=== PATIENT | female | born 1940 | race Caucasian/White ===

== ENCOUNTER → 2019-08-08 13:21 | Outpatient (CLI) | payer MEDICARE, OTHER, SELFPAY ==
--- NOTE | 2019-08-08 13:27 | DI.RAD.S_ITS ---
PROCEDURE: XR THORACIC SPINE 3V INDICATIONS: thoracic radicular pain TECHNIQUE: 3 views of the thoracic spine were acquired. COMPARISON: [facility], MR, MR THORACIC SPINE WO CON, 08/08/2019, 13:45. FINDINGS: Bones: No fractures or dislocations. There is a minimal rightward curvature of the lower thoracic spine and mild leftward curvature of the lumbar spine. There is multilevel degenerative disc disease throughout the thoracic spine including [id number] degeneration in the lower thoracic spine. No suspicious bony lesions. 12 pairs of ribs are noted, and appear intact where visualized. Soft tissues: No paravertebral stripe thickening. IMPRESSION: 1. Multilevel degenerative disease including [id number] degeneration in the lower thoracic spine. Recommend correlation with concurrent MRI. Dictated by: Osman Oliva M.D. on 08/08/2019 at 15:38 Approved by: Osman Oliva M.D. on 08/08/2019 at 15:40
--- NOTE | 2019-08-08 13:27 | DI.MRI.S_ITS ---
PROCEDURE: MR THORACIC SPINE WO CON INDICATIONS: thoracic radicular pain TECHNIQUE: Noncontrast sagittal T1 spine echo and T2 fast spin echo, sagittal STIR, axial T1 and T2 fast spin echo through the thoracic spine. COMPARISON: None. FINDINGS: Image quality: Excellent. Alignment and Curvature: There is normal bony alignment. Bone Marrow: Marrow is of normal overall signal. No acute vertebral body compression fractures. Spinal Cord: Visualized spinal cord along the thoracic spine is normal in size and signal. At the low cervical spine in the C5-6, C6-7 region there is moderately severe spinal stenosis partially visualized at the upper imaging margin. Paraspinous Soft Tissues: No paravertebral masses. Miscellaneous: On axial images, central canal and foramina appear widely patent at all scanned levels. IMPRESSION: No compression fracture found. Low cervical degenerative disc disease combines with facet osteoarthritis in the C5-6 and C6-7 regions to produce relatively severe spinal stenosis. Depending on clinical status followup by dedicated cervical MR scanning may be warranted. Along the thoracic spine mild degenerative disc disease without significant spinal or foraminal stenosis present. No disc herniation is found. No compression fracture is seen. Dictated by: Baljinder Gtz M.D. on 08/10/2019 at 14:41 Approved by: Baljinder Gtz M.D. on 08/10/2019 at 14:44
== END ==
PROVIDERS: Family Provider Family Medicine; PCP Family Medicine; Visit Provider Registered Nurse
DX: M51.14 Intervertebral disc disorders with radiculopathy, thoracic region (principal); M50.122 Cervical disc disorder at C5-C6 level with radiculopathy; M47.22 Other spondylosis with radiculopathy, cervical region; M48.02 Spinal stenosis, cervical region
CPT/HCPCS: 72072; 72146

== ENCOUNTER 2019-10-05 14:40 | Outpatient (CLI) | payer MEDICARE, BC, SELFPAY ==
[2019-10-05] VITALS (10 sets, daily range): BP systolic 107–153; BP diastolic 52–104; PULSE 16–72; RESP 16–18; TEMP 36.3; O2SAT 97–100
--- NOTE | 2019-10-05 14:46 | DI.RAD.S_ITS ---
PROCEDURE: PAIN L/SI FACET INJ/BLK 1STL INDICATIONS: SPONDYLOSIS FINDINGS: Fluoroscopic spot filming was performed to verify placement of spinal needles at the L3-4, L4-L5 level(s), as labeled on the films. Appropriate location(s) of the needle tip(s) was confirmed by injection of iodinated contrast. Dictated by: Devon Arana M.D. on 10/05/2019 at 17:34 Approved by: Devon Arana M.D. on 10/05/2019 at 17:35
[2019-10-05] MEDS: MIDAZOLAM 5 MG/5 ML VIAL IV (15:22)
[2019-10-05] MEDS: BUPIVACAINE 0.5% (PF) VIAL 2 ML INJ (15:26)
[2019-10-05] MEDS: IOPAMIDOL 15 ML VIAL 3 ML INJ (15:26)
[2019-10-05] MEDS: BETAMETHASONE 30 MG/5 ML MDV 12 MG INJ (15:26)
--- NOTE | 2019-10-05 15:28 | PC.NURSE ---
ASSISTING PT OFF TABLE AND TRANSPORTING TO POST PROC AREA IN STABLE CONDITION. PASSING RN CARE OF PT OFF TO MIRIAM Lai RN.
--- NOTE | 2019-10-05 15:42 | P.PCN_ITS ---
Procedures Date/Time Date of procedure: 10/05/19 Time of procedure: 15:42 General Procedure description: PREOP DIAGNOSIS 1. FACET ARTHROPATHY, 2. AXIAL LBP, 3. MULTILEVEL DDD, POST OP DIAGNOSIS 1. FACET ARTHROPATHY, 2. AXIAL LBP, 3. MULTILEVEL DDD, PROCEDURES 1. FLUORSCOPICALLY GUIDED CONTRAST CONTROLLED FACET JOINT INJECTIONS RIGHT L3/4, L4/5 SURGEON: Gerardo Johnson, DO INDICATIONS Kati is referred by for treatment of Axial LBP FINDINGS Multilevel Facet Arthropathy with Clinically significant axial LBP DESCRIPTION OF PROCEDURE Fluoroscopically guided, contrast-controlled right L3/4, L4/5 facet joint in jections. Following review of allergy and review of potential side effects and complications, including, but not necessarily limited to, infection, allergic reaction, local tissue breakdown, stroke, temporary or permanent nerve injury, paralysis, and possible , the patient indicated that the patient understood and agreed to proceed. An informed consent document was signed by the patient, witnessed by a nurse, and placed in the patient's chart. Additionally, other treatment options including medications, modalities, and physical therapy were reviewed with the patient. After review of previous anaesthesic history and IV conscious sedation the patient was deemed safe to proceed with todays procedure with IV conscious sedation as ASA class II designation. Safety time-out was performed to confirm patient ID, procedure to be performed and site of procedure. IV sedation was accomplished with 2mg of Versed administered by the RN after DO order, titrated to patient comfort during the course of the procedure while the patient remained responsive to all verbal commands. In the prone position, following sterile prep and drape of the lumbar region, the posterior aspect of the right L3/4, L4/5 facet joints were identified fluoroscopically. The skin was anesthetized via a 25-gauge 1.5-inch needle with 1% lidocaine solution into the corresponding facet joints. At this point, a 25- gauge 3.5-inch spinal needle was atraumatically introduced and advanced under fluoroscopic guidance into the corresponding facet joints. Following negative aspiration, injections of approximately 0.2-cc of Isovue 200 confirmed interarticular placement without vascular uptake. Radiological data, including multiple fluoroscopic views of the lumbosacral spine, reveal a spinal needle at the right L3/4, L4/5 facet joints. Subsequent views show flow of contrast material both superiorly and inferiorly within the joint space without vascular or intrathecal uptake. At this point, a total of 0.5 cc including a mixture of 0.25 cc Marcaine and 0.25 cc betamethasone was injected without complication into each of the corresponding facet joints. The patient tolerated the procedure well without signs or symptoms of complications prior to transfer to the recovery area for further monitoring. The patient was then transferred to the recovery area where they were observed for an appropriate period of time after the injection. The patient reported a VAS score of 7 prior to the procedure and a post-procedure VAS of 0. Total Fluoroscopy Time: 12.7 seconds Total Conscious Sedation Time: 24min POST OP INSTRUCTIONS The patient was provided a Pain Log to continue to record their response to the target-specific procedure prior to follow-up visit with their referring physician. Additionally, specific post-injection care instructions and a contact number to our office were provided if concerns arise regarding possible complications associated with the procedure are suspected Complications: none
--- NOTE | 2019-10-05 15:46 | PC.NURSE ---
at 1534 returning from procedure, able to transfer self to chair, tolerated well, assuming care from Josselyn crum. snacks provided. pain free i feel happy
== END 2019-10-05 16:13 | disposition home or self-care (01) ==
LOC: RAD 14:46
PROVIDERS: Family Provider Family Medicine; PCP Family Medicine; Referring Provider Physical Medicine & Rehabilitation; Visit Provider Physical Medicine & Rehabilitation
DX: M47.816 Spondylosis without myelopathy or radiculopathy, lumbar region (principal); M54.5 Low back pain; M51.36 Other intervertebral disc degeneration, lumbar region
CPT/HCPCS: 64493; 64494; 99152; J0702; J2250; J3010

== ENCOUNTER 2020-01-28 18:49 | Inpatient (IN) | payer MEDICARE, OTHER, SELFPAY ==
[2020-01-28] VITALS (7 sets, daily range): BP systolic 139–183; BP diastolic 66–107; PULSE 61–82; RESP 16–20; TEMP 36.7–36.9; O2SAT 95–98; BMI 31.4; BMI 32.1
--- NOTE | 2020-01-28 | DI.CT.S_ITS ---
PROCEDURE: CT ABDOMEN PELVIS WO CON INDICATIONS: hypercalcemia, blood in stool TECHNIQUE: Noncontrast 5 mm thick sections acquired from the diaphragms to the symphysis. 5 mm coronal and sagittal reformats were then performed. For radiation dose reduction, the following was used: automated exposure control, adjustment of mA and/or kV according to patient size. COMPARISON: None. FINDINGS: Image quality: There is metallic streak artifact from patient's left hip prosthesis limiting evaluation. ABDOMEN: Lung bases: There are indistinct areas of groundglass opacity in the lung bases which may reflect air trapping or pulmonary edema. Heart size is normal. Solid organs: There is a small oval calcified subdiaphragmatic lesion in the anterior right hepatic dome measuring up up to 1.3 cm. Gallbladder appears within normal limits without calcified gallstones. Pancreas is normal in contours without peripancreatic fat stranding or fluid collections. Spleen is normal in size. There is a small hypodense focus within the spleen measuring up to 0.5 cm which is nonspecific and may represent a small cyst. No adrenal nodules. Kidneys demonstrate no hydronephrosis. Peritoneum and bowel: Small bowel loops demonstrate normal wall thickness and caliber. The appendix is normal in appearance. There is diverticulosis throughout the colon. Mild segmental wall thickening is demonstrated in the rectosigmoid colon. There is minimal associated peridiverticular fat stranding. No macroscopic free air or diverticular abscess. No free fluid or air. Nodes and vessels: No retroperitoneal or mesenteric adenopathy by size criteria. Aorta and inferior vena cava are normal in caliber. Miscellaneous: No ventral hernias. PELVIS: Genitourinary: Bladder wall thickness is normal. There are anterior calcified fibroids in the uterus. Miscellaneous: No inguinal hernias or adenopathy. Bones: No suspicious bony lesions. No vertebral body compression fractures. IMPRESSION: 1. Carreno-colonic diverticulosis with mild peridiverticular fat stranding in the sigmoid colon associated with mild segmental wall thickening. The findings are compatible with a mild diverticulitis or other nonspecific colitis. No bowel obstruction. 2. Small calcified lesion in the anterior hepatic dome likely represents sequela of prior infection. Dictated by: Osman Oliva M.D. on 01/28/2020 at 21:57 Approved by: Osman Oliva M.D. on 01/28/2020 at 22:02
[2020-01-28 19:35] LABS: Add Manual Diff / Slide Review NO; Basophils Absolute Auto 100 /uL (0-100); Eosinophils Absolute Auto 100 /uL (0-450); Eosinophils Percent Auto 1.4 % (2-4); Hematocrit 32.2 % (36-46); Hemoglobin 10.9 g/dL (12.0-16.0); Lymphocytes Absolute Auto 1700 /uL (1100-4500); Lymphocytes Percent Auto 16.4 % (25-40); Mean Corpuscular Hemoglobin 30.7 PG (26-34); Mean Corpuscular Volume 90.3 fL (80-100); Monocytes Absolute Auto 900 /uL (0-900); Monocytes Percent Auto 8.9 % (3-14); Neutrophils Absolute Auto 7300 /uL (1500-7000); Neutrophils Percent Auto 72.3 % (50-75); Platelet Count 461 X10^3/uL (150-400); Red Blood Cell Count 3.57 X10^6/uL (4.0-5.2); Red Cell Distribution Width 16.2 % (11.6-14.8); White Blood Cell Count 10.2 X10^3/uL (4.5-11.0)
[2020-01-28] MEDS: SODIUM CHLORIDE 0.9% 1,000 ML 1000 ML IV ×2 (19:45→21:19)
[2020-01-28 19:47] LABS: Alanine Aminotransferase 12 IU/L (<35); Albumin 4.3 g/dL (3.5-5.0); Albumin Globulin Ratio 1.3 (1.0-2.8); Alkaline Phosphatase 65 U/L (38-126); Aspartate Aminotransferase 25 IU/L (14-36); BUN Creatinine Ratio 23.7 (6-22); Bilirubin Total 0.5 mg/dL (0.2-1.3); Blood Urea Nitrogen 47 mg/dL (7-17); Carbon Dioxide 29 mmol/L (22-32); Chloride 87 mmol/L (98-107); Estimated Glomerular Filt Rate 24.4 mL/min (>60); Globulin 3.3 g/dL (1.7-4.1); Glucose 113 mg/dL (80-110); HEMOLYSIS < 15 (0-50); Potassium 4.7 mmol/L (3.4-5.1); Sodium 129 mmol/L (137-145); Total Protein 7.6 g/dL (6.3-8.2)
[2020-01-28 19:58] LABS: Calcium 13.7 mg/dL (8.4-10.2)
--- NOTE | 2020-01-28 19:58 | ED_ITS ---
HPI - Nausea/Vomiting/Diarrhea General Chief complaint: Nausea/Vomiting/Diarrhea Stated complaint: Diarrhea for the past week or more Time Seen by Provider: 01/28/20 18:56 History of Present Illness HPI Narrative: 79-year-old woman with a history of hypertension, hyperlipidemia and hypothyroidism presents with a week of intermittent diarrhea. She does describes the diarrhea as severe 1 occurring frequently with incontinence in over the last couple of days she has noticed that it has gotten darker and had some red blood mixed within. She notes 2 weeks ago she had a sandwich from [employer] and developed symptoms a week later. Two days ago she had a another sandwich from [employer] and had dramatic diarrhea following that. She has had little to eat in the last 2 days because it causes severe diarrhea. She has generally felt unwell without specific nausea and states that she has eaten little and lost approximately 10 lb in the last 2 weeks. She denies fevers, abdominal cramping dysuria or frequency. She has had no chest pain, shortness of breath, palpitations. She does note that she is dizzy when she stands up and that has gotten worse over the last couple of days. Related Data Home Medications Medication Instructions Recorded Confirmed ascorbic acid (vitamin C) 1,000 mg 1 gram PO BID tab 07/20/19 01/28/20 tablet aspirin 81 mg tablet,delayed 81 mg PO DAILY 07/20/19 01/28/20 release calcium carbonate-vitamin D3 600 1 cap PO BID 07/20/19 01/28/20 mg (1,500 mg)-400 unit capsule cyanocobalamin (vitamin B-12) 500 500 mcg PO DAILY tab 07/20/19 01/28/20 mcg tablet latanoprost 0.005 % eye drops 1 drop EYE-BOTH DAILY ml 07/20/19 01/28/20 levothyroxine 137 mcg tablet 137 mcg PO DAILY 07/20/19 01/28/20 lovastatin 20 mg tablet 20 mg PO DAILY 07/20/19 01/28/20 metoprolol tartrate 25 mg tablet 25 mg PO DAILY 07/20/19 01/28/20 multivitamin 1 tab PO DAILY 07/20/19 01/28/20 potassium gluconate 550 mg (90 mg) 550 mg PO BID tab 07/20/19 01/28/20 tablet timolol maleate 0.5 % eye gel 1 drop EYE-RIGHT DAILY ml 07/20/19 01/28/20 forming solution tolterodine 4 mg capsule,extended 4 mg PO Q24H 07/20/19 01/28/20 release 24 hr triamterene 75 1 tab PO DAILY 07/20/19 01/28/20 mg-hydrochlorothiazide 50 mg tablet methocarbamol 500 mg tablet 500 mg PO QID PRN tab 12/29/19 01/28/20 diclofenac sodium 75 mg PO BID 01/28/20 01/28/20 losartan 50 mg PO DAILY 01/28/20 01/28/20 Allergies Allergy/AdvReac Type Severity Reaction Status Date / Time No Known Drug Allergies Allergy Verified 10/19/19 14:19 Review of Systems Review of Systems Narrative: Pertinent positive and negative findings as per HPI Remainder of review of systems is otherwise unremarkable for ENT: No sore throat, neck pain, ear pain : Dysuria, hematuria, flank pain MS: Muscle weakness, numbness, joint swelling or warmth Skin: Rashes, nonhealing lesions Neuro: Syncope, tingling Psych: Depression, anxiety, suicidal ideation Endocrine: Fatigue, heat or cold intolerance, very dry skin Heme: Easy bruising or bleeding Allergy: Seasonal rhinorrhea, itchy eyes Patient History Medical History Facet arthropathy, lumbosacral (Chronic) Levoscoliosis (Chronic) Lumbosacral spondylosis (Chronic) Spondylolisthesis at L4-L5 level (Chronic) Thoracic radiculopathy (Acute) Surgical History History of hip replacement, 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 Able to give a complete and coherent history. Well-nourished well-developed HEENT: Moist mucous membranes, normal sclera with reactive pupils, Neck: supple Respiratory: Lungs are clear to auscultation, no wheezing no rales no rhonchi. Full and symmetrical air movement Cardiac: Regular rate and rhythm, 4/6 systolic murmur, no bruits Abdomen: Soft nontender good bowel tones, no flank pain Skin: Warm and dry, no rashes Neurologic: Grossly neurologically intact with no obvious asymmetries or abnormalities Extremities: No trauma, well perfused Psych: Cooperative, appropriate insight and affect Initial Vital Signs Initial Vital Signs: Vital Signs Temperature 98.0 F 01/28/20 19:00 Pulse Rate 72 01/28/20 19:00 Respiratory Rate 16 01/28/20 19:00 Blood Pressure 183/89 H 01/28/20 19:00 Pulse Oximetry 97 01/28/20 19:00 Course Orders Ordered: ED Orders 01/28/20 18:54 Urine Culture Stat Urine Microscopic Stat 01/28/20 19:24 Complete Blood Count AUTO DIFF Stat Comprehensive Metabolic Panel Stat GI Panel (Film Array) Urgent Type and Screen Stat 01/28/20 21:04 Education, smoking cessation ONGOING Acetaminophen (Tylenol) 650 mg PO Q6HR PRN PRN Reason: Fever/Mild Pain (1-3) Sodium Chloride (Normal Saline 0.9%) 1,000 mls @ 1,000 mls/hr IV BOLUS ONE Stop: 01/28/20 21:58 Last Admin: 01/28/20 21:19 Dose: 1,000 mls/hr Documented by: YIN Sodium Chloride (Normal Saline 0.9%) 1,000 mls @ 125 mls/hr IV CONT EMILY Naloxone HCl (Narcan) 0.2 mg IV Q2MIN PRN PRN Reason: Opiate Reversal Ondansetron HCl (Zofran) 4 mg IV PRN PRN PRN Reason: nausea Last Admin: 01/28/20 20:09 Dose: 4 mg Documented by: YIN Ondansetron HCl (Zofran) 4 mg IV Q6HR EMILY Pantoprazole Sodium (Protonix) 40 mg IV DAILY EMILY Discontinued Medications Sodium Chloride (Normal Saline 0.9%) 1,000 mls @ 1,000 mls/hr IV BOLUS ONE Stop: 01/28/20 20:17 Last Infusion: 01/28/20 20:55 Dose: 0 mls/hr Documented by: Admin: 01/28/20 19:45 Dose: 1,000 mls/hr Documented by: YIN Vital Signs Vital signs: Vital Signs - 8 hr 01/28/20 19:00 01/28/20 20:00 01/28/20 20:30 Temperature 98.0 F Pulse Rate 72 61 68 Respiratory Rate 16 18 18 Blood Pressure 183/89 H Blood Pressure [Left Arm] 176/71 H 181/107 H Pulse Oximetry 97 95 97 MDM - Nausea/Vomiting/Diarrhea Medical Records Attestation: I reviewed the patient's medical records. Lab Data Attestation: I reviewed the patient's lab results. Lab results narrative: Hyponatremia, acute renal failure, normal potassium level, hypercalcemia. Mild anemia Result diagrams: 01/28/20 19:24 01/28/20 19:24 Labs: Lab Results 01/28/20 01/28/20 01/28/20 Range/Units 18:54 19:24 19:24 WBC 10.2 (4.5-11.0) X10^3/uL RBC 3.57 L (4.0-5.2) X10^6/uL Hgb 10.9 L (12.0-16.0) g/dL Hct 32.2 L (36-46) % MCV 90.3 (80-100) fL MCH 30.7 (26-34) PG MCHC 34.0 (30-36) % RDW 16.2 H (11.6-14.8) % Plt Count 461 H (150-400) X10^3/uL Neut % (Auto) 72.3 (50-75) % Lymph % (Auto) 16.4 L (25-40) % [place] % (Auto) 8.9 (3-14) % Eos % (Auto) 1.4 L (2-4) % Baso % (Auto) 1.0 (0-2) % Neut # (Auto) 7300 H (9132-0833) /uL Lymph # (Auto) 1700 (9473-1308) /uL [place] # (Auto) 900 (0-900) /uL Eos # (Auto) 100 (0-450) /uL Baso # (Auto) 100 (0-100) /uL Sodium 129 L (137-145) mmol/L Potassium 4.7 (3.4-5.1) mmol/L Chloride 87 L (98-107) mmol/L Carbon Dioxide 29 (22-32) mmol/L BUN 47 H (7-17) mg/dL Creatinine 1.98 H (0.52-1.04) mg/dL Estimated GFR 24.4 L (>60) mL/min BUN/Creatinine Ratio 23.7 H (6-22) Glucose 113 H (80-110) mg/dL Calcium 13.7 H* (8.4-10.2) mg/dL Magnesium (1.6-2.3) mg/dL Total Bilirubin 0.5 (0.2-1.3) mg/dL AST 25 (14-36) IU/L ALT 12 (<35) IU/L Alkaline Phosphatase 65 (38-126) U/L Total Protein 7.6 (6.3-8.2) g/dL Albumin 4.3 (3.5-5.0) g/dL Globulin 3.3 (1.7-4.1) g/dL Albumin/Globulin Ratio 1.3 (1.0-2.8) Urine RBC None seen (0-5/HPF) Urine WBC 1-5/hpf (0-5/HPF) Ur Squamous Epith Cells 0-1 /hpf (0-5/HPF) Amorphous Sediment 3+ Urine Bacteria Occasional (0-1) (None) Ur Culture Indicated? Specimen cultured Blood Type Antibody Screen 01/28/20 01/28/20 Range/Units 19:24 19:24 WBC (4.5-11.0) X10^3/uL RBC (4.0-5.2) X10^6/uL Hgb (12.0-16.0) g/dL Hct (36-46) % MCV (80-100) fL MCH (26-34) PG MCHC (30-36) % RDW (11.6-14.8) % Plt Count (150-400) X10^3/uL Neut % (Auto) (50-75) % Lymph % (Auto) (25-40) % [place] % (Auto) (3-14) % Eos % (Auto) (2-4) % Baso % (Auto) (0-2) % Neut # (Auto) (7062-2636) /uL Lymph # (Auto) (4682-9157) /uL [place] # (Auto) (0-900) /uL Eos # (Auto) (0-450) /uL Baso # (Auto) (0-100) /uL Sodium (137-145) mmol/L Potassium (3.4-5.1) mmol/L Chloride (98-107) mmol/L Carbon Dioxide (22-32) mmol/L BUN (7-17) mg/dL Creatinine (0.52-1.04) mg/dL Estimated GFR (>60) mL/min BUN/Creatinine Ratio (6-22) Glucose (80-110) mg/dL Calcium (8.4-10.2) mg/dL Magnesium 2.8 H (1.6-2.3) mg/dL Total Bilirubin (0.2-1.3) mg/dL AST (14-36) IU/L ALT (<35) IU/L Alkaline Phosphatase (38-126) U/L Total Protein (6.3-8.2) g/dL Albumin (3.5-5.0) g/dL Globulin (1.7-4.1) g/dL Albumin/Globulin Ratio (1.0-2.8) Urine RBC (0-5/HPF) Urine WBC (0-5/HPF) Ur Squamous Epith Cells (0-5/HPF) Amorphous Sediment Urine Bacteria (None) Ur Culture Indicated? Blood Type A Positive Antibody Screen Negative Urine Dip Bedside Urine Glucose Negative Bedside Urine Bilirubin - Negative Bedside Urine Ketone +/- 5 Urine Specific [place] 1.010 Bedside Urine Occult Blood - Negative Bedside Urine pH 7.5 Bedside Urine Protein +/- 15 Bedside Urine Urobilinogen - Negative Bedside Urine Nitrite - Negative Bedside Urine Leukocytes ++ 125 Esterase MDM Narrative Medical decision making narrative: Increasing renal insufficiency, hyponatremia, hypercalcemia mild anemia. No pain or localizing symptoms to suggest an acute cancer pathology that might explain the calcium levels. Specifically she has no abdominal pain or distention to suggest an acute colitis. Prior blood work has been requested for Rosibel Marinelli for comparison lab work. Care has been discussed with NIKI Flores hospitalist this evening to see if she would be an appropriate admission for [facility] with rehydration overnight to see if hydration alone is enough to correct the kidney function and then expect t here remainder of electrolytes to improve. Metabolic panel from April of 2019 shows a potassium of 4.4, sodium 133, creatinine of 1.2, and calcium of 9.3 Patient will be admitted to [facility]. Mr. Gale has added parathyroid hormone as well as an abdominal CT scan without contrast to see if any additional findings or concerns are elucidated. Patient is completely stable at this time. Still is not been able to produce a stool sample and has no abdominal pain. She is safe for transfer the floor Discharge Plan Departure Admit Date/Time: 01/28/20 21:08 Admit Provider: Jeff Gale
[2020-01-28] MEDS: ONDANSETRON 4 MG/2 ML INJ IV (20:09)
[2020-01-28 21:08] LABS: RBC Urine None Seen (0-5/HPF)
[2020-01-28 21:22] LABS: Amorphous Sediment Urine 3+; Bacteria Urine Occasional (0-1); Culture Indicated Urine Specimen Cultured; Squamous Epithelial Cell Urine 0-1 /HPF (0-5/HPF); WBC Urine 1-5/HPF (0-5/HPF)
[2020-01-28 21:27] LABS: Magnesium 2.8 mg/dL (1.6-2.3)
--- NOTE | 2020-01-28 22:30 | PM.HP.1 ---
History of Present Illness History of Present Illness Date Patient Seen: 01/28/20 Time Patient Seen: 22:04 Chief complaint: Diarrhea for the past week or more Narrative: Ms. Kait Timmons is a 79-year-old female with a past medical history significant for hypertension, hyperlipidemia, hypothyroidism mildly abnormal pulmonary function test intake of mild restrictive lung disease, glaucoma and lumbosacral spondylolisthesis and scoliosis who presents to the hospital with intermittent diarrhea for 1 week. The patient states she has been having intermittent diarrhea the last week that was initially clean collared then turned dark and more black in color. Patient reports eating fast food 1 week prior to status symptoms and also states she was started on diclofenac 1 month ago and is concerned these may contribute to her present symptoms. The patient complains of generalized weakness and dizziness upon getting but denies falls or trauma. She also reports in poor appetite and approximate 10 lb weight loss. She reports no complaints of nausea vomiting. She has had headaches or visual changes, nasal congestion or sore throat. She denies chest pain or palpitations and has no shortness of breath but states she cannot ascend a flight of stairs without having to rest. She denies cough or wheezing. She denies complaints of abdominal pain and has no heartburn. She has diarrhea as above and denies urinary symptoms of frequency urgency burning or hematuria. Upon arrival to the ER the patient is afebrile with a temperature of 98.0?, heart rate of 72, hypertensive 183/89, respirations 16 saturating 97% on room air. On laboratory analysis patient has a white count of 10.2, hemoglobin 10.9, hematocrit of 32.2 and platelets of 461. She has an MCV of 90.3 and an MCH of 30.7, RDW of 16.2. On electrolytes he is hyponatremic with a sodium of 129, potassium of 4.7, chloride 87 and carbon dioxide of 29. She has a BUN of 47 and a creatinine of 1.98. Her EGFR is 24.4. Her nonfasting glucose is 113. Her total bilirubin is 0.5 with an AST of 20, ALT of 12 and alkaline phosphatase 65. Her calcium is found to be 13.7. Records are obtained from [facility] for comparative laboratory results dated April 2019: Sodium is 133, potassium is 4.4, creatinine is 1.2 and calcium is 9.3. In the ER the patient received 1 L normal saline and Zofran. Patient's case discussed with Dr. Villarreal, requested a CT of the abdomen and pelvis without contrast due to impaired renal function in the setting of bloody diarrhea with hypercalcemia. Also requested magnesium and procalcitonin. The patient is admitted to the medicine service for bloody diarrhea, dehydration and acute renal failure with hypercalcemia. 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 Smoking: Patient quit smoking in 1982 before which she smoked 1 pack per day for approximately 20 years. Alcohol: Patient is not consume alcoholic beverages. Substance use: Patient tried hemp oil for her back pain without benefit. Advanced directives: The patient does not have a formal advanced directive. In direct discussion with the patient she states her desire to be FULL CODE but does not wish to have prolonged life-sustaining life support. She designates her to be her surrogate decision maker. Meds Home Medications and Allergies Home Medications Medication Instructions Recorded Confirmed Type ascorbic acid (vitamin C) 1,000 mg 1 gram PO BID tab 07/20/19 01/28/20 History tablet aspirin 81 mg tablet,delayed 81 mg PO DAILY 07/20/19 01/28/20 History release calcium carbonate-vitamin D3 600 1 cap PO BID 07/20/19 01/28/20 History mg (1,500 mg)-400 unit capsule cyanocobalamin (vitamin B-12) 500 500 mcg PO DAILY tab 07/20/19 01/28/20 History mcg tablet latanoprost 0.005 % eye drops 1 drop EYE-BOTH DAILY ml 07/20/19 01/28/20 History levothyroxine 137 mcg tablet 137 mcg PO DAILY 07/20/19 01/28/20 History lovastatin 20 mg tablet 20 mg PO DAILY 07/20/19 01/28/20 History metoprolol tartrate 25 mg tablet 25 mg PO DAILY 07/20/19 01/28/20 History multivitamin 1 tab PO DAILY 07/20/19 01/28/20 History potassium gluconate 550 mg (90 mg) 550 mg PO BID tab 07/20/19 01/28/20 History tablet timolol maleate 0.5 % eye gel 1 drop EYE-RIGHT DAILY ml 07/20/19 01/28/20 History forming solution tolterodine 4 mg capsule,extended 4 mg PO Q24H 07/20/19 01/28/20 History release 24 hr triamterene 75 1 tab PO DAILY 07/20/19 01/28/20 History mg-hydrochlorothiazide 50 mg tablet methocarbamol 500 mg tablet 500 mg PO QID PRN tab 12/29/19 01/28/20 History diclofenac sodium 75 mg PO BID 01/28/20 01/28/20 History losartan 50 mg PO DAILY 01/28/20 01/28/20 History Allergies Allergy/AdvReac Type Severity Reaction Status Date / Time No Known Drug Allergies Allergy Verified 10/19/19 14:19 Review of Systems Review of Systems ROS: Yes All systems reviewed with the patient and are negative except as otherwise documented Exam Vital Signs (past 8 hours): - 01/28/20 19:00 01/28/20 20:00 01/28/20 20:30 Temperature 98.0 F Pulse Rate 72 61 68 Respiratory Rate 16 18 18 Blood Pressure 183/89 H Blood Pressure [Left Arm] 176/71 H 181/107 H Pulse Oximetry 97 95 97 01/28/20 21:09 01/28/20 21:50 Temperature 98.0 F Pulse Rate 82 73 Respiratory Rate 16 20 Blood Pressure 162/66 H Blood Pressure [Left Arm] 166/76 H Pulse Oximetry 97 98 Oxygen Delivery Method Room Air Oxygen Flow Rate 0 Narrative Exam Narrative: GENERAL APPEARANCE: well developed, obese female with a BMI of 32.1 who is briskly interactive alert and conversant in no acute distress. HEENT: Normocephalic, PERRLA, conjunctiva clear, sclerae anicteric, EOMs intact without nystagmus, no rhinorrhea, mucous membranes are dry with white coating on the tongue and pink without lesions. NECK/THYROID: neck supple, no JVD, no thyromegaly, trachea midline. LYMPH NODES: no cervical or supraclavicular lymphadenopathy. SKIN: [place], warm and dry, no visible lesions, rashes, ulcerations or petechiae. HEART: regular rate, regular rhythm with extrasystoles, S1-S2, 3/6 systolic murmur, no rubs or gallops, brisk capillary refill, no edema LUNGS: clear to auscultation bilaterally, no coarseness crackles or wheezing, no cough present CHEST: Symmetrical movement, no accessory muscle use, good tidal volume, no pain on AP lateral compression. ABDOMEN: Soft, attempting to percussion bilateral upper quadrants, dull lower quadrants, no abdominal tenderness, no guarding or peritoneal signs, no organomegaly, no flank or suprapubic tenderness, active bowel tones. BACK: Normal curvature, right alyx lumbar spine pain on palpation, no back pain on straight leg raise EXTREMITIES: moves all extremities, strength is 5/5 and symmetrical, no deformities or joint effusions. NEUROLOGIC: AAO x4, no focal neurologic deficits, cranial nerves II-XII grossly intact, sensation intact to light touch, hearing grossly normal to speech. PSYCH: Good judgment, good insight, linear thought process, cooperative, appropriate with stable behavior Objective Labs Result Diagrams: 01/28/20 19:24 01/28/20 19:24 Labs: Laboratory Results - last 24 hr 01/28/20 01/28/20 01/28/20 18:54 19:24 19:24 WBC 10.2 RBC 3.57 L Hgb 10.9 L Hct 32.2 L MCV 90.3 MCH 30.7 MCHC 34.0 RDW 16.2 H Plt Count 461 H Neut % (Auto) 72.3 Lymph % (Auto) 16.4 L Crisp % (Auto) 8.9 Eos % (Auto) 1.4 L Baso % (Auto) 1.0 Neut # (Auto) 7300 H Lymph # (Auto) 1700 Crisp # (Auto) 900 Eos # (Auto) 100 Baso # (Auto) 100 Sodium 129 L Potassium 4.7 Chloride 87 L Carbon Dioxide 29 BUN 47 H Creatinine 1.98 H Estimated GFR 24.4 L BUN/Creatinine Ratio 23.7 H Glucose 113 H Calcium 13.7 H* Magnesium Total Bilirubin 0.5 AST 25 ALT 12 Alkaline Phosphatase 65 Total Protein 7.6 Albumin 4.3 Globulin 3.3 Albumin/Globulin Ratio 1.3 Urine RBC None seen Urine WBC 1-5/hpf Ur Squamous Epith Cells 0-1 /hpf Amorphous Sediment 3+ Urine Bacteria Occasional (0-1) Ur Culture Indicated? Specimen cultured Blood Type Antibody Screen 01/28/20 01/28/20 19:24 19:24 WBC RBC Hgb Hct MCV MCH MCHC RDW Plt Count Neut % (Auto) Lymph % (Auto) Crisp % (Auto) Eos % (Auto) Baso % (Auto) Neut # (Auto) Lymph # (Auto) Crisp # (Auto) Eos # (Auto) Baso # (Auto) Sodium Potassium Chloride Carbon Dioxide BUN Creatinine Estimated GFR BUN/Creatinine Ratio Glucose Calcium Magnesium 2.8 H Total Bilirubin AST ALT Alkaline Phosphatase Total Protein Albumin Globulin Albumin/Globulin Ratio Urine RBC Urine WBC Ur Squamous Epith Cells Amorphous Sediment Urine Bacteria Ur Culture Indicated? Blood Type A Positive Antibody Screen Negative Assessment & Plan Assessment & Plan narrative: This is a 71-year-old female presents to the ER with intermittent diarrhea for week that has become bloody and dark color. She has associated symptoms of weakness and dizziness decreased appetite and weight loss over the same period. Patient is found have acute on chronic renal failure with hypercalcemia and hyper magnesium. 1. Diarrhea with melena, acute diverticulitis, present on admission, active. -patient reports diarrhea intermittently over 1 week with color change from light brown to black. -patient is mildly anemic with a hemoglobin of 10.9, hematocrit of 32.2, MCV is 90.3 and MCH is 30.7 with an elevated RDW of 16.2. No labs are available for comparison. -patient is also noted to have hypercalcemia at 13.[address] in [address] with melena CT of the abdomen and pelvis is obtained: Pancolonic diverticulosis with periventricular fat stranding in the sigmoid colon associated with mild segmental wall thickening compatible with mild diverticulitis is or nonspecific colitis, no obstruction. -white count is 10.2, ordered procalcitonin. -ordered Zosyn 2.25 g every 6 hours. -order Protonix 40 mg twice daily with 1st dose now. -will monitor H&H and consider surgical consult. -will hold the patient's daily 81 mg aspirin. 2. Acute kidney injury on chronic renal failure, present on admission, active. -creatinine is elevated on admission labs at 1.98, last known creatinine was from April 2019 was found to be 1.2 consistent with CKD stage 3. -current EGFR is 24.4 with a calculated creatinine clearance level of 31.38. -the patient was started on diclofenac 75 mg twice daily 1 month ago which is discontinued. -patient appears acutely dehydrated with dry mucous membranes and elevated BUN creatinine ratio of 23.7. -ordered urinalysis with micro with reflex to culture as indicated. -the patient received 1 L normal saline in the emergency department. Will continue normal saline 125 cc/hour. 3. Hypercalcemia, acute, present on admission, active. -concerns resident related to hypercalcemia found to be a 13.1 in the setting of GI bleeding and a family history of cancer. CT scan of the abdomen pelvis was obtained finding pandiverticulosis with sigmoid diverticulitis but no evidence of mass lesion on a noncontrast exam related to impaired renal function. -patient has been taking calcium/vitamin-D3 supplementation which may have compound calcium accumulation in the setting and dehydration. -hypercalcemia may be participatory in patient's diarrhea and complained of weakness. -patient will be rehydrated will re-evaluate calcium level. 4. Hyper magnesium, acute, present on admission, active. -magnesium level on admission labs found to be 2.8. -patient has also been taking magnesium supplements. -supplementation and dehydration have elevated magnesium level which may be a factor in patient's developing diarrhea and weakness. 5. Hyponatremia, chronic, present on admission, stable. -patient reports a history of chronic hyponatremia, she is asymptomatic with clear mentation. -admission labs demonstrate sodium level 129 with prior sodium level in April of 2019 was 133. -hypernatremia is likely related to dehydration patient's rehydrated was normal saline at 125 cc/hour. 6. Hypertension, chronic, present on admission, stable. -patient with history of hypertension is hypertensive on arrival with a blood pressure 183/89. Later on admission to the floor the blood pressure is 162/66. -patient is followed by Dr. Pearce, cardiology. She reports recently having EKG completed but not available for review and has and echocardiogram scheduled in 1 week. -patient has been on triamterene with hydrochlorothiazide. Ordered triamterene 75 mg daily and will hold hydrochlorothiazide. -will continue home regimen of losartan 50 mg daily and metoprolol 25 mg daily. 7. Hyperlipidemia, chronic, presumed stable. -will continue patient's home regimen of lovastatin 20 mg daily. 8. Hypothyroidism, chronic, presumed stable. -will continue home regimen of levothyroxine 137 mcg daily. -will obtain a TSH level with reflex to T4. 9. Lumbosacral spondylosis, chronic, stable. -patient with right paraspinal lumbar pain on palpation but no back pain on straight leg raise. -the patient had been prescribed diclofenac 75 mg twice daily 1 month ago which is discontinued due to renal failure. -ordered Tylenol 650 mg every 4 hours as needed for pain -ordered tramadol 50 mg 3 times daily as needed for pain. Isolation: None VTE prophylaxis: Bilateral SCDs, chemical prophylaxis contraindicated due to GI bleeding. IV fluid: Normal saline 125 cc/hour. Diet: NPO except ice chips and meds Code status: FULL CODE, patient designates her Al to be her surrogate decision maker. The patient is admitted to the severity of her symptoms with GI bleeding and findings of diverticulitis and multiple electrolyte derangement in the setting of acute kidney injury on chronic renal failure. The patient is admitted as an inpatient with expected length of stay to be greater than 2 midnights. COVID-19 COVID-19 status: Not tested Scores GCS Do coma scale eye opening: Spontaneous Do coma scale verbal response: Orientated Clifford coma scale motor response: Obey commands Do coma scale total score: 15
[2020-01-28 22:38] LABS: Campylobacter Not Detected (Not Detect)
[2020-01-28 22:39] LABS: Adenovirus F 40/41 Not Detected (Not Detect); Clostridium difficile toxin AB Not Detected (Not Detect); Cryptosporidium Not Detected (Not Detect); Cyclospora cayetanensis Not Detected (Not Detect); Entamoeba histolytica Not Detected (Not Detect); Enteroaggregative E.coli Not Detected (Not Detect); Enteropathogenic E.coli Not Detected (Not Detect); Enterotoxigenic E.coli It/st Not Detected (Not Detect); Giardia lamblia Not Detected (Not Detect); Plesiomonsa shigelloides Not Detected (Not Detect); Salmonella Not Detected (Not Detect); Shiga-like toxin-prod E.coli Not Detected (Not Detect); Shigella/Enteroinvasive E.coli Not Detected (Not Detect); Vibrio Not Detected (Not Detect); Vibrio cholerae Not Detected (Not Detect); Yersinia enterocolitica Not Detected (Not Detect)
[2020-01-28 22:40] LABS: Astrovirus Not Detected (Not Detect); Norovirus GI/GII Not Detected (Not Detect); Rotavirus A Not Detected (Not Detect); Sapovirus Not Detected (Not Detect)
[2020-01-28] MEDS: SODIUM CHLORIDE 0.9% 1,000 ML 125 ML IV (22:57)
[2020-01-28] MEDS: ACETAMINOPHEN 325 MG TABLET 650 MG PO (23:02)
[2020-01-28] MEDS: PANTOPRAZOLE 40 MG VIAL IV (23:02)
[2020-01-28] MEDS: methocarbamoL 500 MG TABLET PO (23:02)
[2020-01-28 23:11] LABS: Appearance Urine UA CLEAR; Bilirubin Urine UA NEGATIVE (NEGATIVE); Color Urine UA YELLOW; Glucose Urine UA NEGATIVE (Negative); Ketones Urine UA TRACE (NEGATIVE); Leukocyte Esterase Urine UA TRACE (NEGATIVE); Nitrite Urine UA NEGATIVE (Negative); Occult Blood Urine UA NEGATIVE (Negative); Protein Urine UA NEGATIVE (Negative); Urobilinogen Urine UA 0.2 E.U./dL (0.2)
[2020-01-28 23:17] LABS: pH Urine UA 7.5 (4.5-8.0)
[2020-01-28] MEDS: PIPERACILLIN-TAZO 2.25 GM/50 ML FROZ.PIGGY IV (23:52)
[2020-01-29] VITALS (10 sets, daily range): BP systolic 119–149; BP diastolic 51–69; PULSE 62–74; RESP 16–18; TEMP 36.3–36.7; O2SAT 94–99
[2020-01-29 00:13] LABS: Procalcitonin 0.05 ng/mL (<0.5)
[2020-01-29] MEDS: PIPERACILLIN-TAZO 2.25 GM/50 ML FROZ.PIGGY IV ×4 (05:42→23:58)
[2020-01-29] MEDS: SODIUM CHLORIDE 0.9% 1,000 ML 125 ML IV ×2 (06:51→16:29)
[2020-01-29 06:53] LABS: Add Manual Diff / Slide Review NO; Basophils Absolute Auto 100 /uL (0-100); Basophils Percent Auto 0.9 % (0-2); Eosinophils Absolute Auto 400 /uL (0-450); Eosinophils Percent Auto 4.4 % (2-4); Hematocrit 29.2 % (36-46); Lymphocytes Absolute Auto 2200 /uL (1100-4500); Lymphocytes Percent Auto 23.3 % (25-40); Mean Corpuscular HGB Conc 34.4 % (30-36); Mean Corpuscular Volume 90.1 fL (80-100); Monocytes Absolute Auto 1100 /uL (0-900); Monocytes Percent Auto 11.5 % (3-14); Neutrophils Absolute Auto 5700 /uL (1500-7000); Neutrophils Percent Auto 59.9 % (50-75); Platelet Count 395 X10^3/uL (150-400); Red Blood Cell Count 3.24 X10^6/uL (4.0-5.2); Red Cell Distribution Width 16.2 % (11.6-14.8); White Blood Cell Count 9.4 X10^3/uL (4.5-11.0)
[2020-01-29 07:05] LABS: Albumin 3.6 g/dL (3.5-5.0); BUN Creatinine Ratio 21.2 (6-22); Blood Urea Nitrogen 38 mg/dL (7-17); Calcium 12.5 mg/dL (8.4-10.2); Carbon Dioxide 30 mmol/L (22-32); Chloride 92 mmol/L (98-107); Estimated Glomerular Filt Rate 27.4 mL/min (>60); Glucose 91 mg/dL (80-110); HEMOLYSIS < 15 (0-50); Phosphorous 3.9 mg/dL (2.8-4.1); Potassium 3.9 mmol/L (3.4-5.1); Sodium 130 mmol/L (137-145)
--- NOTE | 2020-01-29 07:39 | P.PN_ITS ---
Subjective Subjective Date Patient Seen: 01/29/20 Time Patient Seen: 09:36 Interval history: She seems to be doing better. She has had no further bowel movements since around 3:00 p.m. yesterday when she had the severe/large episode of diarrhea. Her calcium has dropped to 12.5 with hydration. Her magnesium is 2.8. Her stool PCR is negative. The white blood count remains at 10.4 and hemoglobin has dropped from 10.9-10.0. The potassium is 3.9 with a creatinine of 1.79. The CT scan shows a mild sigmoid diverticulitis. She explains to me that due to her murmur she has been following up with Dr. Pearce while who is planning a follow-up echo next week. She will be advanced to a full liquid diet today Exam Vital Signs (past 8 hours): - 01/29/20 00:00 01/29/20 04:25 Temperature 98.0 F Pulse Rate 74 Respiratory Rate 18 Blood Pressure 149/69 H Pulse Oximetry 97 94 Oxygen Delivery Method Room Air Oxygen Flow Rate 0 Narrative Exam Narrative: She is alert and oriented x3, in no apparent distress. Heart is regular rate and rhythm with a 3/6 systolic ejection murmur. Lungs are clear to auscultation bilaterally Neck exam is notable for no thyroid or obvious parathyroid enlargement. No lymph nodes are felt. Abdomen is soft, bowel sounds positive, nontender, no organomegaly. Extremities have no ankle edema Objective Labs Result Diagrams: 01/29/20 06:39 01/29/20 06:39 Labs: Laboratory Results - last 24 hr 01/28/20 01/28/20 01/28/20 18:54 19:24 19:24 WBC 10.2 RBC 3.57 L Hgb 10.9 L Hct 32.2 L MCV 90.3 MCH 30.7 MCHC 34.0 RDW 16.2 H Plt Count 461 H Neut % (Auto) 72.3 Lymph % (Auto) 16.4 L Reagan % (Auto) 8.9 Eos % (Auto) 1.4 L Baso % (Auto) 1.0 Neut # (Auto) 7300 H Lymph # (Auto) 1700 Reagan # (Auto) 900 Eos # (Auto) 100 Baso # (Auto) 100 Sodium 129 L Potassium 4.7 Chloride 87 L Carbon Dioxide 29 BUN 47 H Creatinine 1.98 H Estimated GFR 24.4 L BUN/Creatinine Ratio 23.7 H Glucose 113 H Calcium 13.7 H* Phosphorus Magnesium Total Bilirubin 0.5 AST 25 ALT 12 Alkaline Phosphatase 65 Total Protein 7.6 Albumin 4.3 Globulin 3.3 Albumin/Globulin Ratio 1.3 Procalcitonin Urine Color Yellow Urine Appearance Clear Urine pH 7.5 Ur Specific [place] 1.010 Urine Protein Negative Urine Glucose (UA) Negative Urine Ketones Trace H Urine Occult Blood Negative Urine Nitrate Negative Urine Bilirubin Negative Urine Urobilinogen 0.2 Ur Leukocyte Esterase Trace H Urine RBC None seen Urine WBC 1-5/hpf Ur Squamous Epith Cells 0-1 /hpf Amorphous Sediment 3+ Urine Bacteria Occasional (0-1) Ur Culture Indicated? Specimen cultured Stl C. cayetanensis PCR Stool Rotavirus (PCR) Stool Adenovirus (PCR) Stool Astrovirus (PCR) Stool Cryptosporidium PCR Stl E.coli Shiga Tox PCR St Sh/Enteroin Ecoli PCR Stool E coli O157 PCR Stl Enterotoxigenic E PCR Stool EPEC (PCR) Stl E. histolytica PCR Stool Giardia Lamblia PCR Stool Sapovirus (PCR) Stl P. shigelloides PCR St Y.enterocolitica PCR Stool Vibrio (PCR) Stl Vibrio cholerae PCR Stl Enteroaggr Ecoli PCR Stl Norovirus GI/GII PCR Campylobacter (PCR) C. difficile Tox (PCR) Salmonella (PCR) Blood Type Antibody Screen 01/28/20 01/28/20 01/28/20 19:24 19:24 19:24 WBC RBC Hgb Hct MCV MCH MCHC RDW Plt Count Neut % (Auto) Lymph % (Auto) Reagan % (Auto) Eos % (Auto) Baso % (Auto) Neut # (Auto) Lymph # (Auto) Reagan # (Auto) Eos # (Auto) Baso # (Auto) Sodium Potassium Chloride Carbon Dioxide BUN Creatinine Estimated GFR BUN/Creatinine Ratio Glucose Calcium Phosphorus Magnesium 2.8 H Total Bilirubin AST ALT Alkaline Phosphatase Total Protein Albumin Globulin Albumin/Globulin Ratio Procalcitonin Urine Color Urine Appearance Urine pH Ur Specific [place] Urine Protein Urine Glucose (UA) Urine Ketones Urine Occult Blood Urine Nitrate Urine Bilirubin Urine Urobilinogen Ur Leukocyte Esterase Urine RBC Urine WBC Ur Squamous Epith Cells Amorphous Sediment Urine Bacteria Ur Culture Indicated? Stl C. cayetanensis PCR Not detected Stool Rotavirus (PCR) Not detected Stool Adenovirus (PCR) Not detected Stool Astrovirus (PCR) Not detected Stool Cryptosporidium PCR Not detected Stl E.coli Shiga Tox PCR Not detected St Sh/Enteroin Ecoli PCR Not detected Stool E coli O157 PCR Not Reportable Stl Enterotoxigenic E PCR Not detected Stool EPEC (PCR) Not detected Stl E. histolytica PCR Not detected Stool Giardia Lamblia PCR Not detected Stool Sapovirus (PCR) Not detected Stl P. shigelloides PCR Not detected St Y.enterocolitica PCR Not detected Stool Vibrio (PCR) Not detected Stl Vibrio cholerae PCR Not detected Stl Enteroaggr Ecoli PCR Not detected Stl Norovirus GI/GII PCR Not detected Campylobacter (PCR) Not detected C. difficile Tox (PCR) Not detected Salmonella (PCR) Not detected Blood Type A Positive Antibody Screen Negative 01/28/20 01/29/20 01/29/20 21:24 06:39 06:39 WBC 9.4 RBC 3.24 L Hgb 10.0 L Hct 29.2 L MCV 90.1 MCH 31.0 MCHC 34.4 RDW 16.2 H Plt Count 395 Neut % (Auto) 59.9 Lymph % (Auto) 23.3 L Reagan % (Auto) 11.5 Eos % (Auto) 4.4 H Baso % (Auto) 0.9 Neut # (Auto) 5700 Lymph # (Auto) 2200 Reagan # (Auto) 1100 H Eos # (Auto) 400 Baso # (Auto) 100 Sodium 130 L Potassium 3.9 Chloride 92 L Carbon Dioxide 30 BUN 38 H Creatinine 1.79 H Estimated GFR 27.4 L BUN/Creatinine Ratio 21.2 Glucose 91 Calcium 12.5 H Phosphorus 3.9 Magnesium Total Bilirubin AST ALT Alkaline Phosphatase Total Protein Albumin 3.6 Globulin Albumin/Globulin Ratio Procalcitonin 0.05 Urine Color Urine Appearance Urine pH Ur Specific [place] Urine Protein Urine Glucose (UA) Urine Ketones Urine Occult Blood Urine Nitrate Urine Bilirubin Urine Urobilinogen Ur Leukocyte Esterase Urine RBC Urine WBC Ur Squamous Epith Cells Amorphous Sediment Urine Bacteria Ur Culture Indicated? Stl C. cayetanensis PCR Stool Rotavirus (PCR) Stool Adenovirus (PCR) Stool Astrovirus (PCR) Stool Cryptosporidium PCR Stl E.coli Shiga Tox PCR St Sh/Enteroin Ecoli PCR Stool E coli O157 PCR Stl Enterotoxigenic E PCR Stool EPEC (PCR) Stl E. histolytica PCR Stool Giardia Lamblia PCR Stool Sapovirus (PCR) Stl P. shigelloides PCR St Y.enterocolitica PCR Stool Vibrio (PCR) Stl Vibrio cholerae PCR Stl Enteroaggr Ecoli PCR Stl Norovirus GI/GII PCR Campylobacter (PCR) C. difficile Tox (PCR) Salmonella (PCR) Blood Type Antibody Screen Assessment & Plan Assessment & Plan narrative: This is a 71-year-old female who presented to the ER with intermittent diarrhea for one week that has become bloody and dark color. She has associated symptoms of weakness and dizziness, decreased appetite and weight loss over the same period. Patient is found have acute on chronic renal failure with hypercalcemia and hypermagnesium. 1. Diarrhea with melena, acute diverticulitis, present on admission, active. -patient reports diarrhea intermittently over 1 week with color change from light brown to black. -patient is mildly anemic with a hemoglobin of 10.9, hematocrit of 32.2, MCV is 90.3 and MCH is 30.7 with an elevated RDW of 16.2. No previous labs are available for comparison. -patient is also noted to have hypercalcemia at 13.1 in association with melena CT of the abdomen and pelvis is obtained: Pancolonic diverticulosis with periventricular fat stranding in the sigmoid colon associated with mild segmental wall thickening compatible with mild diverticulitis is or nonspecific colitis, no obstruction. -white count is 10.2 -Continue Zosyn 2.25 g every 6 hours. -Protonix 40 mg twice daily -will monitor H&H and consider surgical consult. -hold the patient's daily 81 mg aspirin. -01/28 hgb 10.0 2. Acute kidney injury on chronic renal failure, present on admission, active. -creatinine is elevated on admission labs at 1.98, last known creatinine was from April 2019 was found to be 1.2 consistent with CKD stage 3. -current EGFR is 24.4 with a calculated creatinine clearance level of 31.38. -the patient was started on diclofenac 75 mg twice daily 1 month ago which is now discontinued. -patient appeared acutely dehydrated with dry mucous membranes and elevated BUN creatinine ratio of 23.7. -the patient received 1 L normal saline in the emergency department. Will continue normal saline 125 cc/hour. -01/28 Creat 1.79 3. Hypercalcemia, acute, present on admission, active. -13.1 in the setting of GI bleeding and a family history of cancer. CT scan of the abdomen pelvis was obtained finding pandiverticulosis with sigmoid diverticulitis but no evidence of mass lesion on a noncontrast exam related to impaired renal function. -patient has been taking calcium/vitamin-D3 supplementation which may have compound calcium accumulation in the setting and dehydration. -hypercalcemia may be participatory in patient's diarrhea and weakness. -PTH pending, order SPEP/Immunofixation -01/28 12.5, Continue IV hydration 4. Hypermagnesia, acute, present on admission, active. -magnesium level on admission labs found to be 2.8. -patient has also been taking magnesium supplements. -supplementation and dehydration have elevated magnesium level which may be a factor in patient's developing diarrhea and weakness. -follow daily until normal 5. Hyponatremia, chronic, present on admission, stable. -patient reports a history of chronic hyponatremia, she is asymptomatic with clear mentation. -admission labs demonstrate sodium level 129 with prior sodium level in April of 2019 was 133. -hyponatremia is likely related to HCTZ and dehydration. Rehydrate with normal saline at 125 cc/hour. -01/28 130 6. Hypertension, chronic, present on admission, stable. -patient with history of hypertension is hypertensive on arrival with a blood pressure 183/89. Later on admission to the floor the blood pressure is 162/66. -patient is followed by Dr. Pearce, cardiology. She reports recently having EKG completed but not available for review and has and echocardiogram scheduled in 1 week. -patient has been on triamterene with hydrochlorothiazide. Ordered triamterene 75 mg daily and held hydrochlorothiazide. -will continue home regimen of losartan 50 mg daily and metoprolol 25 mg daily. -01/28 adjust Metoprolol to home dosing of 25 mg TID and resume the HCTZ component of Maxzide. -5 significant systolic murmur suggestive of heard today 7. Hyperlipidemia, chronic, presumed stable. -will continue patient's home regimen of lovastatin 20 mg daily. 8. Hypothyroidism, chronic, presumed stable. -will continue home regimen of levothyroxine 137 mcg daily. -TSH 1.17 9. Lumbosacral spondylosis, chronic, stable. -patient with right paraspinal lumbar pain on palpation but no back pain on straight leg raise. -the patient had been prescribed diclofenac 75 mg twice daily 1 month ago which is discontinued due to renal failure. -continue Tylenol 650 mg every 4 hours as needed for pain -continue tramadol 50 mg 3 times daily as needed for pain. Isolation: None VTE prophylaxis: Bilateral SCDs, chemical prophylaxis contraindicated due to GI bleeding. IV fluid: Normal saline 125 cc/hour. Diet: Advance to full liquids 01/28 Code status: FULL CODE, patient designates her Al to be her surrogate decision maker.
[2020-01-29 07:43] LABS: TSH w/ Reflex to FT4 1.17 uIU/mL (0.47-4.68)
[2020-01-29] MEDS: methocarbamoL 500 MG TABLET PO (08:20)
[2020-01-29] MEDS: ACETAMINOPHEN 325 MG TABLET 650 MG PO (08:20)
[2020-01-29] MEDS: PANTOPRAZOLE 40 MG VIAL IV ×2 (08:21→21:04)
[2020-01-29] MEDS: LOSARTAN 50 MG TABLET PO (08:22)
[2020-01-29] MEDS: LEVOTHYROXINE 137 MCG TABLET PO (08:22)
[2020-01-29] MEDS: METOPROLOL IR 25 MG TABLET PO ×3 (08:23→21:05)
[2020-01-29] MEDS: LATANOPROST 0.005% OPHTH 2.5 ML 1 DROPS EYE-BOTH ×3 (08:24→21:08)
[2020-01-29] MEDS: TOLTERODINE LA 4 MG PO (08:25)
[2020-01-29] MEDS: TIMOLOL GFS 0.5% 1 DROPS EYE-RIGHT (08:32)
--- NOTE | 2020-01-29 10:25 | PC.NURSE ---
Day Shift- Pt A&OX4, able to make needs known using call light. States has chronic back pain with Omron TENS in place. Reports pain currently 4-5/10 and can get down to 1/10 at home. PRn Robaxin and Tylenol given at 0820. Pt's Al visiting around 1020. Brought in pt's home med of Triamterene-HCTZ 75/50. Bottled sent to pharmacy to be verified.
--- NOTE | 2020-01-29 11:35 | CM.DANOTE ---
Discharge Planning/Care Management DCP: assessment: case received, EMR reviewed. Met with pt during Team Bedside Rounds and then stayed afterwords for further discussion with pt and her Al. Introduced self and role. Pt is a 79 year old female who admitted last night to care of hospitalist team. Payer: Medicare and [facility] Admission status: iINPT : edil Curiel PCP: Dr. Lazarus Roque Other providers: Dr. Damon: cardiology Dr. Johnson: pain clinic Pt expects to be able to d/c home when she is deemed stable for same. She confirms she is functionally independent and baseline and uses no assistive device. She and her spouse both drive. She has outpt appts coming up in next week or so for ECHO and also a spinal injection from Dr. Johnson. Dr. Vences explained to all that he is treating pt for acute on chronic kidney injury, diarrhea with melena and acute diverticulitis, high level of calcium and magnesium. He stated he expected pt to be here through the weekend. Pricing Intern/Leeanne will be seeing pt today. P: home when stable as above. Advanced directive, confirm from FAMILY Start: 01/28/20 22:23 Freq: Q24H Status: Active Protocol: Document 01/28/20 22:23 KMD (Rec: 01/28/20 22:41 KMD [id number]) Advance Directive, confirm on record Time 22:40 Person contacted pt Copy received No Document 01/28/20 22:41 KMD (Rec: 01/28/20 22:41 KMD [id number]) Advance Directive, confirm on record Time 22:40 Person contacted pt Copy received No CM Discharge Assessment Start: 01/29/20 11:34 Freq: Status: Active Protocol: Document 01/29/20 11:34 ITV (Rec: 01/29/20 11:35 ITV [id number]) Discharge Planning Assessment Advance Directives? No History Provided By Patient,Family Member,Medical Record Prior Living Arrangements House Household Members spouse Type of transportation used prior to Drives own vehicle admit Independent with ADL's Yes Is patient alert and oriented? Yes Review Status In Process
[2020-01-29] MEDS: TRAMADOL 50 MG TABLET PO ×2 (11:42→22:12)
[2020-01-29] MEDS: TRIAMTERENE/HCTZ 37.5/25 TABLET 2 CAP PO ×2 (11:43→11:55)
--- NOTE | 2020-01-29 13:03 | DIET.PN ---
Addendum entered by Leeanne Peacock 01/29/20 13:26: In addition to below, pt takes daily MVI which contains additional calcium and magnesium. 1. Recc ~1,000mg daily total calcium intake between all supps and food 2. Recc ~300-400mg daily magnesium intake between all supps and food Original Note: Dietary Progress Note Assessment: 79y F admitted for weakness, melanic stool, hypermagnesmia and hypercalcemia referred to nutrition for 10# wt loss in 2 w in addition to admit concerns. Met c pt and her Al at bedside. 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 Pt avoids most dairy due to possible lactose intolerance but does consume yogurt and cheese. Reccs for age are 1200mg per day INCLUDING food sources, so pt is taking too high dose based on dietary intake and reccs for age plus lab value on admit of >13 H. Pt has been supplementing c magnesium for several years per reccs from doctor for some reason she cannot remember. Mg supplementation 500mg or higher can cause loose stools. Pt's lab draw was 2.8 H. Pt weighs herself daily with UBW 189#, experiencing weight loss in past 2w reported as 10#, but pt's current wt is 187#, pt's reported wt loss likely dehydration-related from intermittent diarrhea. Pt reports reduced appetite secondary to R sided lower back pain. HT: 162.5cm WT: 84.9kg (-1.3% in 2w) UBW: 86kg BMI: 32.1 Labs: HGB 10.9 --> 10.0 L, Na 130 L, BUN 38 H, Cr 1.79 H, eGFR 27.4 L, Ca 12.5 H, Mg 2.8 H MNA: 10 @ risk for malnutrition Bruno: 19 Nutrition Diagnosis: Excessive mineral intake (calcium, magnesium) r/t faithful daily intake of supplements without re-evaluation of need based on sx or lifecycle stage aeb pt has been taking 1500mg calcium daily since , pt presents c elevated lab values ca 12.5, mg 2.8, pt unsure why she is taking magnesium supplement. Interventions: 1. Recc pt supplement at most 500mg calcium bid. 2. Recc pt reduce amount or frequency of magnesium supp. Diet Order: Full liquid Monitoring/Evaluations: available for further supplement education
[2020-01-29] MEDS: LOVASTATIN 20 MG TABLET PO (21:05)
[2020-01-30] VITALS: O2SAT 94
[2020-01-30 00:15] VITALS: BP 133/65; PULSE 68; RESP 18; TEMP 37.1; O2SAT 94
[2020-01-30] MEDS: SODIUM CHLORIDE 0.9% 1,000 ML 125 ML IV (02:18)
[2020-01-30 04:00] VITALS: BP 139/57; PULSE 66; RESP 16; TEMP 36.7; O2SAT 98
[2020-01-30] MEDS: PIPERACILLIN-TAZO 2.25 GM/50 ML FROZ.PIGGY IV ×2 (05:26→11:37)
[2020-01-30 05:58] LABS: Add Manual Diff / Slide Review NO; Basophils Absolute Auto 100 /uL (0-100); Eosinophils Absolute Auto 600 /uL (0-450); Hematocrit 25.8 % (36-46); Hemoglobin 9.2 g/dL (12.0-16.0); Lymphocytes Absolute Auto 2600 /uL (1100-4500); Lymphocytes Percent Auto 30.1 % (25-40); Mean Corpuscular HGB Conc 35.6 % (30-36); Mean Corpuscular Hemoglobin 32.4 PG (26-34); Monocytes Absolute Auto 1000 /uL (0-900); Monocytes Percent Auto 11.7 % (3-14); Neutrophils Absolute Auto 4400 /uL (1500-7000); Neutrophils Percent Auto 50.2 % (50-75); Platelet Count 350 X10^3/uL (150-400); Red Blood Cell Count 2.83 X10^6/uL (4.0-5.2); Red Cell Distribution Width 16.1 % (11.6-14.8); White Blood Cell Count 8.7 X10^3/uL (4.5-11.0)
[2020-01-30 06:07] LABS: BUN Creatinine Ratio 17.5 (6-22); Blood Urea Nitrogen 27 mg/dL (7-17); Calcium 10.7 mg/dL (8.4-10.2); Carbon Dioxide 31 mmol/L (22-32); Chloride 97 mmol/L (98-107); Estimated Glomerular Filt Rate 32.6 mL/min (>60); Glucose 88 mg/dL (80-110); HEMOLYSIS < 15 (0-50); Magnesium 1.7 mg/dL (1.6-2.3); Potassium 4.6 mmol/L (3.4-5.1); Sodium 130 mmol/L (137-145)
[2020-01-30] MEDS: LEVOTHYROXINE 137 MCG TABLET PO (06:47)
[2020-01-30 07:08] LABS: Parathyroid Hormone Int 8 pg/mL (15-65)
[2020-01-30] MEDS: TRIAMTERENE/HCTZ 37.5/25 TABLET 2 CAP PO (08:04)
[2020-01-30] MEDS: TOLTERODINE LA 4 MG PO (08:04)
[2020-01-30] MEDS: TIMOLOL GFS 0.5% 1 DROPS EYE-RIGHT (08:05)
[2020-01-30] MEDS: PANTOPRAZOLE 40 MG VIAL IV (08:05)
[2020-01-30 08:08] VITALS: BP 152/76; PULSE 69
[2020-01-30] MEDS: METOPROLOL IR 25 MG TABLET PO (08:08)
[2020-01-30] MEDS: LOSARTAN 50 MG TABLET PO (08:08)
[2020-01-30 08:10] VITALS: BP 152/76; PULSE 70; RESP 18; TEMP 36.6; O2SAT 97
--- NOTE | 2020-01-30 09:20 | CM.DPC ---
Addendum entered by Olivia Saez R.N. 01/30/20 13:09: Patient is being discharged home today, here at bedside. Had patient sign her IMM. Original Note: DCP Cont: Met briefly with patient who was sitting up in her chair next to her bed. She is hopeful to go home today. She resides in [place] with her spouse. She is independent at baseline. Introduced self and role. Patient alert and oriented, and pleasant. P: DCP to continue to follow. Patient should be able to go home when she is medically stable. Olivia Saez RN/Manager Integration
[2020-01-30 12:00] VITALS: BP 137/60; PULSE 65; RESP 18; TEMP 36.6; O2SAT 98
--- NOTE | 2020-01-30 12:31 | P.DS_ITS ---
History of Present Illness History of Present Illness Date Patient Seen: 01/30/20 Chief complaint: Diarrhea for the past week or more Narrative: Ms. Kait Timmons is a 79-year-old female with a past medical history significant for hypertension, hyperlipidemia, hypothyroidism mildly abnormal pulmonary function test intake of mild restrictive lung disease, glaucoma and lumbosacral spondylolisthesis and scoliosis who presents to the hospital with intermittent diarrhea for 1 week. The patient states she has been having intermittent diarrhea the last week that was initially clean collared then turned dark and more black in color. Patient reports eating fast food 1 week prior to status symptoms and also states she was started on diclofenac 1 month ago and is concerned these may contribute to her present symptoms. The patient complains of generalized weakness and dizziness upon getting but denies falls or trauma. She also reports in poor appetite and approximate 10 lb weight loss. She reports no complaints of nausea vomiting. She has had headaches or visual changes, nasal congestion or sore throat. She denies chest pain or palpitations and has no shortness of breath but states she cannot ascend a flight of stairs without having to rest. She denies cough or wheezing. She denies complaints of abdominal pain and has no heartburn. She has diarrhea as above and denies urinary symptoms of frequency urgency burning or hematuria. Upon arrival to the ER the patient is afebrile with a temperature of 98.0?, heart rate of 72, hypertensive 183/89, respirations 16 saturating 97% on room air. On laboratory analysis patient has a white count of 10.2, hemoglobin 10.9, hematocrit of 32.2 and platelets of 461. She has an MCV of 90.3 and an MCH of 30.7, RDW of 16.2. On electrolytes he is hyponatremic with a sodium of 129, potassium of 4.7, chloride 87 and carbon dioxide of 29. She has a BUN of 47 and a creatinine of 1.98. Her EGFR is 24.4. Her nonfasting glucose is 113. Her total bilirubin is 0.5 with an AST of 20, ALT of 12 and alkaline phosphatase 65. Her calcium is found to be 13.7. Records are obtained from [facility] for comparative laboratory results dated April 2019: Sodium is 133, potassium is 4.4, creatinine is 1.2 and calcium is 9.3. In the ER the patient received 1 L normal saline and Zofran. Patient's case discussed with Dr. Villarreal, requested a CT of the abdomen and pelvis without contrast due to impaired renal function in the setting of bloody diarrhea with hypercalcemia. Also requested magnesium and procalcitonin. The patient is admitted to the medicine service for bloody diarrhea, dehydration and acute renal failure with hypercalcemia. Discharge Providers Provider Date of admission: 01/28/20 21:08 Discharge Date: 01/30/20 Primary care physician: Lazarus Roque MD Consults: 01/28/20 21:11 Consult to Dietitian, Adult Routine Comment: Reason For Exam: Bloody diarrhea, dehydration and hypercalcemia Consult to Discharge Planning Routine Comment: 01/28/20 22:22 Consult to Dietitian, Adult Routine Comment: Reason For Exam: weight loss and decreased appetite Discharge provider: Saida Vences MD Summary Hospital Course Discharge Diagnosis: This is a 71-year-old female who presented to the ER with intermittent diarrhea for one week that has become bloody and dark color. She has associated symptoms of weakness and dizziness, decreased appetite and weight loss over the same per iod. Patient is found have acute on chronic renal failure with hypercalcemia and hypermagnesium. 1. Diarrhea with melena 2. Acute kidney injury on chronic renal failure 3. Hypercalcemia 4. Hypermagnesia 5. Hyponatremia 6. Hypertension 7. Hyperlipidemia 8. Hypothyroidism 9. Lumbosacral spondylosis 10. Anemia Hospital Course: This is a 71-year-old female who presented to the ER with intermittent diarrhea for one week that has become bloody and dark color. She has associated symptoms of weakness and dizziness, decreased appetite and weight loss over the same period. Patient is found have acute on chronic renal failure with hypercalcemia and hypermagnesium. 1. Diarrhea with melena, acute diverticulitis, present on admission, active. -patient reports diarrhea intermittently over 1 week with color change from light brown to black. -patient is mildly anemic with a hemoglobin of 10.9, hematocrit of 32.2, MCV is 90.3 and MCH is 30.7 with an elevated RDW of 16.2. No previous labs are available for comparison. -patient is also noted to have hypercalcemia at 13.[address] in [address] with melena CT of the abdomen and pelvis is obtained: Pancolonic diverticulosis with periventricular fat stranding in the sigmoid colon associated with mild se gmental wall thickening compatible with mild diverticulitis is or nonspecific colitis, no obstruction. -Treated with Zosyn 2.25 g every 6 hours with an additional 5 days of outpatient Augmentin planned -Protonix 40 mg twice daily -held 81 mg aspirin. -01/28 hgb 10.0 -01/29 hgb 9.2 without external signs of bleeding (hemodilutional?) 2. Acute kidney injury on chronic renal failure, present on admission, active. -creatinine is elevated on admission labs at 1.98, last known creatinine was from April 2019 was found to be 1.2 consistent with CKD stage 3. -current EGFR is 24.4 with a calculated creatinine clearance level of 31.38. -the patient was started on diclofenac 75 mg twice daily 1 month ago which is now discontinued. -patient appeared acutely dehydrated with dry mucous membranes and elevated BUN creatinine ratio of 23.7. -the patient received 1 L normal saline in the emergency department. Will continue normal saline 125 cc/hour. -01/28 Creat 1.79, down to 1.54 on 01/29 3. Hypercalcemia, acute, present on admission, active. -13.1 in the setting of GI bleeding and a family history of cancer. CT scan of the abdomen pelvis was obtained finding pandiverticulosis with sigmoid diverticu litis but no evidence of mass lesion on a noncontrast exam related to impaired renal function. -patient has been taking calcium/vitamin-D3 supplementation which may have compound calcium accumulation in the setting and dehydration. -hypercalcemia may be participatory in patient's diarrhea and weakness. -PTH pending, SPEP/Immunofixation pending, follow up results later this week with Dr. Roque in [place] -01/28 12.5, Continue IV hydration -01/29 10.7, stop supplemental Calcium at home 4. Hypermagnesia, acute, present on admission, active. -magnesium level on admission labs found to be 2.8. -patient has also been taking magnesium supplements. -supplementation and dehydration have elevated magnesium level which may be a factor in patient's developing diarrhea and weakness. -1.7 at discharge 01/29 5. Hyponatremia, chronic, present on admission, stable. -patient reports a history of chronic hyponatremia, she is asymptomatic with clear mentation. -admission labs demonstrate sodium level 129 with prior sodium level in April of 2019 was 133. -hyponatremia is likely related to HCTZ and dehydration. Rehydrated with normal saline at 125 cc/hour. -01/28 130, 01/29 130 6. Hypertension, chronic, present on admission, stable. -patient with history of hypertension is hypertensive on arrival with a blood pressure 183/89. Later on admission to the floor the blood pressure is 162/66. -patient is followed by Dr. Pearce, cardiology. She reports recently having EKG completed but not available for review and has and echocardiogram scheduled in 1 week. -patient has been on triamterene with hydrochlorothiazide. Ordered triamterene 75 mg daily and held hydrochlorothiazide. -will continue home regimen of losartan 50 mg daily and metoprolol 25 mg daily. -01/28 adjust Metoprolol to home dosing of 25 mg TID and resume the HCTZ component of Maxzide. -01/28 significant systolic murmur suggestive of heard today, Echo pending later this week 7. Hyperlipidemia, chronic, presumed stable. -will continue patient's home regimen of lovastatin 20 mg daily. 8. Hypothyroidism, chronic, presumed stable. -will continue home regimen of levothyroxine 137 mcg daily. -TSH 1.17 9. Lumbosacral spondylosis, chronic, stable. -patient with right paraspinal lumbar pain on palpation but no back pain on stra ight leg raise. -the patient had been prescribed diclofenac 75 mg twice daily 1 month ago which is discontinued due to renal failure. -use Tylenol at home. Exam Vital Signs (past 8 hours): - 01/30/20 08:08 01/30/20 08:10 Temperature 97.8 F Pulse Rate 69 70 Respiratory Rate 18 Blood Pressure 152/76 H 152/76 H Pulse Oximetry 97 Oxygen Delivery Method Room Air Oxygen Flow Rate 0 Narrative Exam Narrative: Alert and oriented x3 without apparent distress. She has had no further diarrhea or bowel movements since admission. Lungs are clear to auscultation bilaterally Heart is regular rate and rhythm with a to a/6 systolic ejection murmur Abdomen is soft, bowel sounds positive, nontender, no organomegaly Extremities have no ankle edema Objective Labs Result Diagrams: 01/30/20 05:40 01/30/20 05:40 Labs: Laboratory Results - last 24 hr 01/28/20 01/30/20 01/30/20 19:24 05:40 05:40 WBC 8.7 RBC 2.83 L Hgb 9.2 L Hct 25.8 L MCV 91.0 MCH 32.4 MCHC 35.6 RDW 16.1 H Plt Count 350 Neut % (Auto) 50.2 Lymph % (Auto) 30.1 [place] % (Auto) 11.7 Eos % (Auto) 7.0 H Baso % (Auto) 1.0 Neut # (Auto) 4400 Lymph # (Auto) 2600 [place] # (Auto) 1000 H Eos # (Auto) 600 H Baso # (Auto) 100 Sodium 130 L Potassium 4.6 Chloride 97 L Carbon Dioxide 31 BUN 27 H Creatinine 1.54 H Estimated GFR 32.6 L BUN/Creatinine Ratio 17.5 Glucose 88 Calcium 10.7 H Magnesium PTH Intact 8 L 01/30/20 05:40 WBC RBC Hgb Hct MCV MCH MCHC RDW Plt Count Neut % (Auto) Lymph % (Auto) [place] % (Auto) Eos % (Auto) Baso % (Auto) Neut # (Auto) Lymph # (Auto) [place] # (Auto) Eos # (Auto) Baso # (Auto) Sodium Potassium Chloride Carbon Dioxide BUN Creatinine Estimated GFR BUN/Creatinine Ratio Glucose Calcium Magnesium 1.7 PTH Intact Discharge Plan Discharge Plan Patient Disposition: Home Discharge comment: Follow up your blood tests for the high Calcium level with Dr. Roque this coming week. Your PTH and Serum Immunofixation levels should be back by then. Be sure to stop taking your Calcium pill. You will also need followup of your new Anemia. Hgb 9.2 Discharge orders & Medications Prescriptions: New amoxicillin-pot clavulanate [Augmentin] 875-125 mg tablet 1 tab PO BID Qty: 10 RF: 0 Continued losartan 50 mg Tablet 50 mg PO DAILY RF: 0 diclofenac sodium 75 mg tablet,delayed release (DR/EC) 75 mg PO BID RF: 0 multivitamin Tablet 1 tab PO DAILY RF: 0 cyanocobalamin (vitamin B-12) 500 mcg tablet 500 mcg PO DAILY RF: 0 aspirin 81 mg tablet,delayed release (DR/EC) 81 mg PO DAILY RF: 0 ascorbic acid (vitamin C) 1,000 mg tablet 1 gram PO BID RF: 0 latanoprost 0.005 % drops 1 drop EYE-BOTH DAILY RF: 0 metoprolol tartrate 25 mg tablet 25 mg PO DAILY RF: 0 tolterodine [Detrol LA] 4 mg capsule,extended release 24hr 4 mg PO Q24H RF: 0 lovastatin 20 mg tablet 20 mg PO DAILY RF: 0 levothyroxine 137 mcg tablet 137 mcg PO DAILY RF: 0 potassium gluconate 550 mg (90 mg) tablet 550 mg PO BID RF: 0 triamterene-hydrochlorothiazid [Maxzide] 75-50 mg tablet 1 tab PO DAILY RF: 0 timolol maleate 0.5 % gel forming solution 1 drop EYE-RIGHT DAILY RF: 0 methocarbamol 500 mg tablet 500 mg PO QID PRN (Reason: Spasms) RF: 0 Discontinued calcium carbonate-vitamin D3 600 mg(1,500mg) -400 unit capsule 1 cap PO BID RF: 0 Follow up/Referrals: Lazarus Roque MD [Primary Care Provider] - Diet/Activity/Treatments Diet: Regular Discharge Data Primary Care Provider: Lazarus Roque
--- NOTE | 2020-01-30 15:45 | PC.NURSE ---
1400 IV removed intact. Discharge instructions and home care handouts reviewed with patient and her . They state understanding and have no further questions or concerns. Patient to belt picker prescription sent in electronically. Patient states she will ensure follow up appointment with her PCP and lab results. Escorted out via wheelchair by CRM ARCHITECT to be discharged to home.
[2020-02-02 10:40] LABS: Immunoglobulin A, Serum 295 mg/dL (64-422); Immunoglobulin G,Serum 646 mg/dL (586-1602); Immunoglobulin M, Serum 98 mg/dL (26-217)
[2020-02-02 14:08] LABS: Albumin 3.1 g/dL (2.9-4.4); Alpha-1-Globulin 0.4 g/dL (0.0-0.4); Alpha-2-Globulin 0.9 g/dL (0.4-1.0); Gamma Globulin 0.7 g/dL (0.4-1.8); Globulin Total 2.9 g/dL (2.2-3.9)
== END 2020-01-30 14:30 | disposition home or self-care (01) | DRG 378 ==
LOC: ED 18:56 → AC 21:08
PROVIDERS: Family Medicine; Admitting Provider Nurse Practitioner Adult Health; Emergency Provider Emergency Medicine; Family Provider Family Medicine; PCP Family Medicine; Referring Provider Emergency Medicine; Visit Provider Nurse Practitioner Adult Health
DX: K57.33 Diverticulitis of large intestine without perforation or abscess with bleeding (principal); N17.9 Acute kidney failure, unspecified; E87.1 Hypo-osmolality and hyponatremia; E83.52 Hypercalcemia; I12.9 Hypertensive chronic kidney disease with stage 1 through stage 4 chronic kidney disease, or unspecified chronic kidney disease; N18.3 Chronic kidney disease, stage 3 (moderate); E83.41 Hypermagnesemia; E78.5 Hyperlipidemia, unspecified; E03.9 Hypothyroidism, unspecified; M47.817 Spondylosis without myelopathy or radiculopathy, lumbosacral region; D64.9 Anemia, unspecified; Z87.891 Personal history of nicotine dependence
CPT/HCPCS: 36415; 74176; 80048; 80053; 80069; 81003; 81015; 82784; 83735; 83970; 84145; 84155; 84165; 84443; 85025; 86334; 86850; 86900; 86901; 87086; 87507; 93005; 93010; 96361; 96374; 99284; C9113; J2405; J2543

== ENCOUNTER → 2020-02-08 13:33 | Outpatient (CLI) | payer MEDICARE, OTHER, SELFPAY ==
[2020-01-28 21:53] VITALS: BMI 32.1
--- NOTE | 2020-02-08 | DI.ECHO.S_ITS ---
[facility]---------+ [facility] +---------+ : : [address] : [place] : : : : [id number] : : : : Phone: [phone]---------+ Echocardiogram Report + + :Name: DONNA NUNES Study Date: 02/08/2020 Height: 64 in : :[facility] Weight: 196 lb : : Gender: Female BSA: 1.9 m2 : :: 1940 Age: 79 yrs BP: 121/76 mmHg: :Reason For Study: Murmur : :Ordering Physician: Jef : :Priscila Pearce Performed By: Cynthia Page : + + Interpretation Summary The left ventricle is normal in size. The ejection fraction is estimated to be 60-65%. There has been no significant change since the previous exam. MV E/A: 1.7 Med Peak E' Christian: 4.6 cm/sec E/E' med: 32.0 The right ventricle is normal in size and function. Mitral leaflets appears to be thickened calcified as well as restricted movement. There appears to be mild mitral stenosis. Mean gradient about 3 mmHg. Mitral valve does not appears to have rheumatic changes. There is moderate mitral regurgitation. Compared to the prior echo study, there has been no change in the severity of mitral regurgitation. The aortic valve is moderately calcified. There is severely reduced leaflet mobility. The peak aortic velocity is 3.9 m/sec. The aortic valve mean gradient is 35 mmHg. The peak aortic velocity on the previous exam was 2.4 m/sec. The calculated aortic valve area is 0.9 cm2. The aortic valve area is 0.8 centimeters squared by planimetry. There is moderate to severe aortic stenosis. Compared to the prior echo study, there has been an increase in the severity of aortic stenosis. Mild atherosclerotic plaque(s) in the aortic arch. Procedure: A two-dimensional transthoracic echocardiogram with color flow and Doppler was performed. The study quality was technically adequate. Prior available from 02/13/08, with images only. The patient was in normal sinus rhythm during the exam. Left Ventricle: The left ventricle is normal in size. There is normal left ventricular wall thickness. There is no thrombus. The ejection fraction is estimated to be 60-65%. There has been no significant change since the previous exam. There are regional wall motion abnormalities as specified. MV E/A: 1.7 Med Peak E' Christian: 4.6 cm/sec E/E' med: 32.0. Right Ventricle: The right ventricle is normal in size and function. Atria: The left atrium is severely dilated. The left atrium has remained unchanged in size since the prior echo exam. The right atrium is mildly dilated. There is no Doppler evidence for an interatrial shunt. Mitral Valve: There is moderate to severe mitral annular calcification. Mitral leaflets appears to be thickened calcified as well as restricted movement. There appears to be mild mitral stenosis. Mean gradient about 3 mmHg. Mitral valve does not appears to have rheumatic changes. There is moderate mitral regurgitation. Compared to the prior echo study, there has been no change in the severity of mitral regurgitation. Aortic Valve: The aortic valve is trileaflet. The aortic valve is moderately calcified. There is severely reduced leaflet mobility. The peak aortic velocity is 3.9 m/sec. The aortic valve mean gradient is 35 mmHg. The calculated aortic valve area is 0.9 cm2. The aortic valve area is 0.8 centimeters squared by planimetry. There is moderate to severe aortic stenosis. The peak aortic velocity on the previous exam was 2.4 m/sec. Compared to the prior echo study, there has been an increase in the severity of aortic stenosis. There is trace aortic regurgitation. Tricuspid Valve: The tricuspid valve is normal. There is trace tricuspid regurgitation. The right ventricular systolic pressure is estimated to be at least 34 mmHg based on an estimated right atrial pressure of 3 mm Hg. Pulmonic Valve: The pulmonic valve is not well seen, but is grossly normal. There is trace pulmonic regurgitation. Great Vessels: The aortic root is normal size. The ascending aorta is normal in size. Mild atherosclerotic plaque(s) in the aortic arch. The pulmonary artery is normal size. The IVC is of normal diameter and collapses greater than 50% with a sniff. This suggests a low right atrial pressure of 3 mm Hg. Pericardium/ Pleura There is no pericardial effusion. There is no pleural effusion. MMode/2D Measurements & Calculations LVIDd: 5.1 cm LVOT diam: 2.1 cm LVIDs: 3.6 cm Ao root diam: 3.0 cm FS: 29.5 % asc Aorta Diam: 3.3 cm EPSS: 0.71 cm IVSd: 0.91 cm LVPWd: 0.83 cm LV soria. diameter/BSA (cm/m^2): 2.6 LV sys. diameter/BSA (cm/m^2): 1.8 LA A2 area: 30.7 cm2 RA long axis: 5.3 cm LA A4 area: 29.9 cm2 RA area: 19.8 cm2 LA length (vol): 6.4 cm RA vol: 63.8 ml LA vol: 122.5 ml RA : 32.9 ml/m2 LA vol index: 63.2 ml/m2 IVC diam: 1.9 cm RVD1 (basal): 3.8 cm TAPSE: 2.4 cm Doppler Measurements & Calculations Ao V2 max: 387.3 cm/sec LVOT Max Christian: 106.0 cm/sec Ao V2 mean: 284.0 cm/sec LV V1 max P.5 mmHg Ao max P.0 mmHg LV V1 VTI: 26.2 cm Ao mean P.1 mmHg BERTHA(I,D): 0.89 cm2 Ao V2 VTI: 99.7 cm BERTHA(V,D): 0.92 cm2 sev ratio: 0.26 BERTHA indexed to BSA (cm^2/m^2): 0.46 MV E max christian: 148.0 cm/sec TR max christian: 279.2 cm/sec MV A max christian: 86.3 cm/sec TR max P.2 mmHg MV E/A: 1.7 PA V2 max: 77.0 cm/sec Med Peak E' Christian: 4.6 cm/sec PA V2 mean: 51.2 cm/sec E/E' med: 32.0 PA mean P.2 mmHg Lat Peak E' Christian: 6.8 cm/sec PA Accel Time: 0.17 sec E/E' lat: 21.6 E/e' average: 26.8 MV dec time: 0.23 sec MVA(VTI): 1.9 cm2 MV V2 mean: 73.9 cm/sec SV(LVOT): 88.3 ml MV mean P.8 mmHg MV V2 VTI: 46.8 cm Reading Physician:[id number] PM
--- NOTE | 2020-02-08 13:37 | DI.RAD.S_ITS ---
PROCEDURE: XR LUMBAR SPINE 2-3V INDICATIONS: Lumbar pain TECHNIQUE: 3 views of the lumbar spine were acquired. COMPARISON: None. FINDINGS: Bones: No fracture or focal osseous destruction. Multilevel degenerative endplate sclerosis and spurring. Diffuse facet arthropathy. Grade 2 anterolisthesis of L4 on L5. Trace anterolisthesis of L3 on L4. Grade 1 retrolisthesis of L1 on L2 and T12 on L1. Severe narrowing of the L3-L4 disc space. Severe narrowing of the T12-L1 and L1-L2 disc space. Moderate narrowing of the L4-L5 disc space. Levoscoliosis Soft tissues: Scattered vascular calcifications seen in the aorta. Possible calcified uterine fibroid, nonspecific. IMPRESSION: Severe multilevel lumbar spondylosis and facet arthropathy Multilevel spondylolisthesis as above. Levoscoliosis Dictated by: Devon Arana M.D. on 02/08/2020 at 15:21 Approved by: Devon Arana M.D. on 02/08/2020 at 15:23
[2020-02-08 16:03] LABS: BUN Creatinine Ratio 21.3 (6-22); Blood Urea Nitrogen 34 mg/dL (7-17); Calcium 9.1 mg/dL (8.4-10.2); Carbon Dioxide 28 mmol/L (22-32); Chloride 96 mmol/L (98-107); Estimated Glomerular Filt Rate 31.2 mL/min (>60); Glucose 95 mg/dL (80-110); HEMOLYSIS < 15 (0-50); Potassium 4.8 mmol/L (3.4-5.1); Sodium 132 mmol/L (137-145)
== END ==
PROVIDERS: Family Provider Family Medicine; PCP Family Medicine; Referring Provider Internal Medicine Cardiovascular Disease; Visit Provider Internal Medicine Cardiovascular Disease
DX: I08.0 Rheumatic disorders of both mitral and aortic valves (principal); I70.0 Atherosclerosis of aorta; R01.1 Cardiac murmur, unspecified; I10 Essential (primary) hypertension; M47.816 Spondylosis without myelopathy or radiculopathy, lumbar region; M47.817 Spondylosis without myelopathy or radiculopathy, lumbosacral region; M43.16 Spondylolisthesis, lumbar region; M41.9 Scoliosis, unspecified; M54.5 Low back pain
CPT/HCPCS: 36415; 72100; 80048; 93306

== ENCOUNTER → 2020-03-26 11:05 | Outpatient (CLI) | payer MEDICARE, OTHER, SELFPAY ==
[2020-01-28 21:53] VITALS: BMI 32.1
[2020-03-28 20:46] LABS: COVID19 Sendout Not Detected (Not Detect)
== END ==
PROVIDERS: Family Provider Family Medicine; PCP Family Medicine; Visit Provider Physician Assistant
DX: Z11.59 Encounter for screening for other viral diseases (principal)
CPT/HCPCS: 87635

== ENCOUNTER 2020-03-29 13:40 | Outpatient (CLI) | payer MEDICARE, BC, SELFPAY ==
[2020-01-28 21:53] VITALS: BMI 32.1
[2020-03-29] VITALS (8 sets, daily range): BP systolic 107–135; BP diastolic 40–62; PULSE 59–69; RESP 12–20; TEMP 36.2; O2SAT 95–100
--- NOTE | 2020-03-29 13:41 | DI.RAD.S_ITS ---
PROCEDURE: PAIN L/SI FACET INJ/BLK 1STL INDICATIONS: SPONDYLOSIS COMPARISON: [facility], , PAIN L/SI FACET INJ/BLK 1STL, 10/05/2019, 15:21. FINDINGS: Fluoroscopic spot filming was performed to verify placement of spinal needles at the L3-L4, L4-L5, L5-S1 level(s), as labeled on the films. Appropriate location(s) of the needle tip(s) was confirmed by injection of iodinated contrast. Dictated by: Devon Arana M.D. on 03/29/2020 at 15:11 Approved by: Devon Arana M.D. on 03/29/2020 at 15:11
[2020-03-29] MEDS: MIDAZOLAM 5 MG/5 ML VIAL IV (14:27)
[2020-03-29] MEDS: BETAMETHASONE 30 MG/5 ML MDV 12 MG INJ (14:33)
[2020-03-29] MEDS: LIDOCAINE 1% 20 ML 10 ML INJ (14:33)
[2020-03-29] MEDS: BUPIVACAINE 0.5% (PF) VIAL 2 ML INJ (14:33)
[2020-03-29] MEDS: IOPAMIDOL 15 ML VIAL 3 ML INJ (14:33)
--- NOTE | 2020-03-29 14:44 | P.PCN_ITS ---
Date/Time/Diagnoses Date of procedure: 03/29/20 Time of procedure: 14:44 Pre-procedure diagnosis: 1. FACET ARTHROPATHY, 2. AXIAL LBP, 3. MULTILEVEL DDD Post-procedure diagnosis: same Procedure Notes Procedure: 1. FLUOROSCOPICALLY GUIDED CONTRAST CONTROLLED FACET JOINT INJECTIONS LEFT L3/4, L4/5, L5/S1 Indications: Kait is referred by Dr. Roque for treatment of Axial LBP Physician: Gerardo Johnson Total Fluoroscopy time (seconds): 6 Total sedation minutes: 6 Complications: none Procedure in detail & Post-procedure care: FINDINGS Multilevel Facet Arthropathy with Clinically significant axial LBP DESCRIPTION OF PROCEDURE Fluoroscopically guided, contrast-controlled left L3/4, L4/5, L5/S1 facet joint injections. Following review of allergy and review of potential side effects and complications, including, but not necessarily limited to, infection, allergic reaction, local tissue breakdown, stroke, temporary or permanent nerve injury, paralysis, and possible , the patient indicated that the patient understood and agreed to proceed. An informed consent document was signed by the patient, witnessed by a nurse, and placed in the patient's chart. Additionally, other treatment options including medications, modalities, and physical therapy were reviewed with the patient. After review of previous anaesthesic history and IV conscious sedation the patient was deemed safe to proceed with today?s procedure with IV conscious sedation as ASA class II designation. Safety time-out was performed to confirm patient ID, procedure to be performed and site of procedure. IV sedation was accomplished with a combination of 2mg of Versed was administered by the RN after DO order, titrated to patient comfort during the course of the procedure while the patient remained responsive to all verbal commands. In the prone position, following sterile prep and drape of the lumbar region, the posterior aspect of the left L3/4, L4/5, L5/S1 facet joints were identified fluoroscopically. The skin was anesthetized via a 25-gauge 1.5-inch needle with 1% lidocaine solution into the corresponding facet joints. At this point, a 22- gauge 3.5-inch spinal needle was atraumatically introduced and advanced under fluoroscopic guidance into the corresponding facet joints. Following negative aspiration, injections of approximately 0.2-cc of Isovue 200 confirmed interar ticular placement without vascular uptake. Radiological data, including multiple fluoroscopic views of the lumbosacral spine, reveal a spinal needle at the left L3/4, L4/5, L5/S1 facet joints. Sub sequent views show flow of contrast material both superiorly and inferiorly within the joint space without vascular or intrathecal uptake. At this point, a total of 0.5 cc including a mixture of 0.25cc [place] and 0.25cc betamethasone was injected without complication into each of the corresponding facet joints. The procedure tolerated the procedure well without signs or symptoms of complic ations prior to transfer to the recovery area continued monitoring without incident. The patient was then transferred to the recovery area where they were observed for an appropriate period of time after the injection. The patient reported a VAS score of 7 prior to the procedure and a post-procedure VAS of 0. POST OP INSTRUCTIONS The patient was provided a Pain Log to continue to record their response to the target-specific procedure prior to follow-up visit with their referring physician. Additionally, specific post-injection care instructions and a contact number to our office were provided if concerns arise regarding possible complications associated with the procedure are suspected.
--- NOTE | 2020-03-29 15:06 | PC.NURSE ---
Pt to recovery at 1452- alert and oriented. Tolerated procedure well. Eating cookies and drinking water well. No c/o pain. Vitals stable and within preprocedure limits. No questions with DC instructions.
--- NOTE | 2020-03-29 16:31 | PC.NURSE ---
1445: pt tolerated procedure well, 2PA transfer from table to , returned to pre proc room for further monitoring
== END 2020-03-29 15:07 ==
LOC: RAD 13:40
PROVIDERS: Family Provider Family Medicine; PCP Family Medicine; Referring Provider Family Medicine; Visit Provider Physical Medicine & Rehabilitation
DX: M47.816 Spondylosis without myelopathy or radiculopathy, lumbar region (principal); M47.817 Spondylosis without myelopathy or radiculopathy, lumbosacral region; M54.5 Low back pain; M51.36 Other intervertebral disc degeneration, lumbar region; M51.37 Other intervertebral disc degeneration, lumbosacral region
CPT/HCPCS: 64493; 64494; 64495; 99152; J0702; J2250; J3010

== ENCOUNTER → 2021-05-05 09:43 | Outpatient (CLI) | payer MEDICARE, OTHER, SELFPAY ==
[2021-03-27 11:54] VITALS: BMI 32.1
--- NOTE | 2021-05-05 09:45 | DI.RAD.S_ITS ---
PROCEDURE: XR LUMBAR SPINE MIN 4V INDICATIONS: Acute low back pain history of scoliosis and spondylolisthes TECHNIQUE: 5 views of the lumbar spine were acquired, including bilateral oblique views. COMPARISON: [facility], , XR LUMBAR SPINE 2-3V, 02/08/2020, 13:30. FINDINGS: Bones: Convex left thoracolumbar scoliosis present. There is disc space narrowing and hypertrophic facet joints present throughout the exam. Grade 2 anterior spondylolisthesis present at L4-5. Generalized decrease in osseous mineralization noted. Soft tissues: Overlying bowel gas pattern is normal. No suspicious soft tissue calcifications. Atherosclerotic calcification in the abdominal aorta noted without evidence of aneurysm. Incidental note is made of a left hip arthroplasty Oblique images: No pars defects. IMPRESSION: Degenerative L4-5 grade 2 anterior spondylolisthesis. Multilevel degenerative disc disease and arthropathy throughout the spine. Thoracolumbar levoscoliosis Approved by: Josh Wang M.D. on 05/05/2021 at 11:04
== END ==
PROVIDERS: Family Provider Family Medicine; PCP Internal Medicine; Referring Provider Physical Medicine & Rehabilitation; Visit Provider Physical Medicine & Rehabilitation
DX: M43.16 Spondylolisthesis, lumbar region (principal); M47.817 Spondylosis without myelopathy or radiculopathy, lumbosacral region; M41.85 Other forms of scoliosis, thoracolumbar region; M51.36 Other intervertebral disc degeneration, lumbar region; M47.816 Spondylosis without myelopathy or radiculopathy, lumbar region; M54.14 Radiculopathy, thoracic region; Z96.642 Presence of left artificial hip joint; Z95.2 Presence of prosthetic heart valve
CPT/HCPCS: 72110; 99214

== ENCOUNTER → 2021-05-08 12:26 | Outpatient (CLI) | payer MEDICARE, OTHER, SELFPAY ==
[2021-03-27 11:54] VITALS: BMI 32.1
== END ==
PROVIDERS: Family Provider Family Medicine; PCP Internal Medicine; Referring Provider Physical Medicine & Rehabilitation; Visit Provider Physical Medicine & Rehabilitation
DX: M43.16 Spondylolisthesis, lumbar region (principal)

== ENCOUNTER → 2021-05-12 12:42 | Outpatient (CLI) | payer MEDICARE, OTHER, SELFPAY ==
[2021-03-27 11:54] VITALS: BMI 32.1
== END ==
PROVIDERS: Family Provider Family Medicine; PCP Internal Medicine; Referring Provider Physical Medicine & Rehabilitation; Visit Provider Physical Medicine & Rehabilitation
DX: M43.16 Spondylolisthesis, lumbar region (principal); Z53.8 Procedure and treatment not carried out for other reasons

== ENCOUNTER → 2021-05-17 17:45 | Outpatient (CLI) | payer MEDICARE, OTHER, SELFPAY ==
[2021-03-27 11:54] VITALS: BMI 32.1
--- NOTE | 2021-05-17 17:48 | DI.MRI.S_ITS ---
PROCEDURE: MR LUMBAR SPINE WO CON INDICATIONS: spondylolithesis TECHNIQUE: Noncontrast sagittal T1 spin echo and T2 fast echo, sagittal STIR, axial T1 and T2 fast spin echo through the lumbar spine. In cases with scoliosis, additional coronal T2 fast spin echo may be performed. COMPARISON: [facility], CT, CT ABDOMEN PELVIS WO CON, 01/28/2020, 20:53. [facility], CR, XR LUMBAR SPINE MIN 4V, 05/05/2021, 9:41. FINDINGS: Image quality: Excellent. Alignment and Curvature: There is mild leftward curvature with apex at L2-3. There is grade 1 retrolisthesis of T12 on L1, L1 on L2, 3 mm, grade 1/2 anterolisthesis of L4 on L5, 10 mm. No definitive pars defect is identified. Bone Marrow: Marrow is of normal overall signal. Moderate reactive endplate changes are present at T12-L1, L1-L2 and mild at L3-4, minimal L2-3, L4-5, L5-S1. Schmorl's nodes are noted most prominently along the endplates of T12, L1, L3 and L4. No acute vertebral body compression fractures. Spinal Cord: Conus medullaris terminates at the L1 level. Visualized cord demonstrates normal signal and size. Paraspinous Soft Tissues: No paravertebral masses. Discs: Moderate to severe desiccation is present throughout the lumbar spine most severe at L3-4, L4-5 as well as T12-L1. L1-L2: Mild disc bulge with mild spinal stenosis. Mild bilateral foraminal narrowing with facet and ligamentum flavum hypertrophy. L2-L3: Mild disc bulge with moderate spinal stenosis. [id number] left foraminal narrowing with facet and ligamentum flavum hypertrophy. L3-L4: Mild disc bulge with severe spinal stenosis and canal compression. Severe right and mild left foraminal narrowing with facet and ligamentum flavum hypertrophy. There is mild nerve root compression of the exiting L3 nerve roots on the right. L4-L5: Mild disc bulge with severe spinal stenosis and severe canal compression. There is severe bilateral foraminal narrowing, left greater than right with compression of the left exiting L4 nerve roots. Facet and ligamentum flavum hypertrophy are present. L5-S1: Mild disc bulge with mild spinal stenosis. Moderate left foraminal narrowing is present. IMPRESSION: 1. Multilevel spinal stenosis most severe at the L3-4 and L4-5 secondary to anterior listhesis/scoliotic curvature, as well as disc bulges and facet/ligamentum flavum arthropathy. 2. Multilevel foraminal narrowing most severe at L3-4, L4-5 predominantly secondary to facet arthropathy with contributing effect of scoliotic curvature. Dictated by: Helen Meier M.D. on 05/18/2021 at 10:54 Approved by: Helen Meier M.D. on 05/18/2021 at 11:47
== END ==
PROVIDERS: Family Provider Family Medicine; PCP Internal Medicine; Referring Provider Physical Medicine & Rehabilitation; Visit Provider Physical Medicine & Rehabilitation
DX: M43.16 Spondylolisthesis, lumbar region (principal); M47.817 Spondylosis without myelopathy or radiculopathy, lumbosacral region; M48.061 Spinal stenosis, lumbar region without neurogenic claudication; M51.26 Other intervertebral disc displacement, lumbar region
CPT/HCPCS: 72148

== ENCOUNTER → 2021-05-29 10:21 | Outpatient (CLI) | payer MEDICARE, OTHER, SELFPAY ==
[2021-05-24 15:21] VITALS: BMI 32.1
[2021-05-29 12:45] LABS: COVID19 -Nasal RAPID Negative (Negative)
== END ==
PROVIDERS: Family Provider Family Medicine; PCP Internal Medicine; Visit Provider Physical Medicine & Rehabilitation
DX: Z20.822 Contact with and (suspected) exposure to COVID-19 (principal)
CPT/HCPCS: 87635; C9803

== ENCOUNTER 2021-05-30 15:19 | Outpatient (CLI) | payer MEDICARE, BC, SELFPAY ==
[2021-05-24 15:21] VITALS: BMI 32.1
[2021-05-30] VITALS (8 sets, daily range): BP systolic 122–165; BP diastolic 62–78; PULSE 62–67; RESP 14–25; TEMP 36.2; O2SAT 96–98
--- NOTE | 2021-05-30 15:22 | DI.RAD.S_ITS ---
PROCEDURE: PAIN L/SI FACET INJ/BLK 1STL INDICATIONS: SPONDYLOSIS COMPARISON: [facility], , PAIN L/SI FACET INJ/BLK 1STL, 03/29/2020, 13:32. FINDINGS: Fluoroscopic spot filming was performed to verify placement of spinal needles at the L3, L4, L5 and S1 level(s), as labeled on the films. Appropriate location(s) of the needle tip(s) was confirmed by injection of iodinated contrast. IMPRESSION: Needle placement as above. Dictated by: Helen Meier M.D. on 05/30/2021 at 16:50 Approved by: Helen Meire M.D. on 05/30/2021 at 16:51
[2021-05-30] MEDS: MIDAZOLAM 5 MG/5 ML VIAL IV (16:02)
--- NOTE | 2021-05-30 16:22 | P.PCN_ITS ---
Date/Time/Diagnoses Date of procedure: 05/30/21 Time of procedure: 16:22 Pre-procedure diagnosis: 1. FACET ARTHROPATHY Post-procedure diagnosis: same Procedure Notes Procedure: 1. Left L3, L4, L5 and S1 MB BLOCKS Indications: Kait is referred by Dr. Cary for treatment of Left Axial LBP. Physician: Gerardo Johnson Total Fluoroscopy time (seconds): 11 Total sedation minutes: 13 Complications: none Procedure in detail & Post-procedure care: DESCRIPTION OF PROCEDURE Fluoroscopically guided, contrast-controlled left L3, L4, L5 and S1 medial branch blocks with 0.5cc of 0.5% Marcaine. Following review of allergy and review of potential side effects and complications, including, but not necessarily limited to, infection, allergic reaction, local tissue breakdown, nerve injury, paralysis, stroke and possible , the patient indicated that the patient understood and agreed to proceed. An informed consent document was signed by the patient, witnessed by a nurse, and placed in the patient's chart. After review of previous anaesthesic history and IV conscious sedation the patient was deemed safe to proceed with today?s procedure with IV conscious sedation as ASA class II designation. Safety time-out was performed to confirm patient ID, procedure to be performed and site of procedure. IV sedation was accomplished with a combination of 2mg of Versed was administered by the RN after DO order, titrated to patient comfort during the course of the procedure while the patient remained responsive to all verbal commands. In the prone position, following sterile prep and drape of the lumbar region, the left L3. L4, L5 and S1 anatomical location of the medial branch of the dorsal ramus was identified fluoroscopically. Subsequently an anesthetic skin wheal using 1% lidocaine solution was initiated at each of the anatomical spots. Subsequently then a 22-gauge 3.5-inch spinal needle was atraumatically introduced and advanced under fluoroscopic guidance at each of the corresponding sites at the left L3, L4, L5 and S1 MB. After negative aspiration, 0.2cc of Isovue 200 was injected, confirming placement without vascular or intrathecal uptake. Subsequently then 0.5cc of 0.5% Marcaine solution was injected at each of the corresponding sites at the left L3, L4, L5 and S1 medial branch locations. The patient tolerated the procedure well without signs or symptoms of complications. The patient tolerated the procedure well without signs or symptoms of complications prior to transfer to the recovery area continued monitoring without incident. Post-procedure, the patient was monitored initiating provocative activities to measure the amount of relief from block of the facetogenic pain. The patient reported a VAS of 7 prior to the procedure and a post-procedure VAS of 1. It has been a pleasure to assist in the diagnostic and therapeutic care of your patient. POST OP INSTRUCTIONS The patient was provided with a Pain Log to complete over the next several hours and subsequent days prior to the patient's follow up with the ordering physician. If the patient has extractor operator relief to the solution applied, then they may be a candidate for medial branch rhizotomy. The patient is aware, was provided, once again, with a Pain Log and will follow up with the referring physician for review and clinical correlation.
[2021-05-30] MEDS: IOPAMIDOL 15 ML VIAL 3 ML INJ (16:28)
[2021-05-30] MEDS: BUPIVACAINE 0.5% (PF) VIAL 5 ML INJ (16:28)
[2021-05-30] MEDS: LIDOCAINE 1% 20 ML (16:28)
== END 2021-05-30 16:42 | disposition home or self-care (01) ==
LOC: RAD 15:21
PROVIDERS: Family Provider Family Medicine; PCP Internal Medicine; Referring Provider Physical Medicine & Rehabilitation; Visit Provider Physical Medicine & Rehabilitation
DX: M47.817 Spondylosis without myelopathy or radiculopathy, lumbosacral region (principal); M47.816 Spondylosis without myelopathy or radiculopathy, lumbar region; M54.59 Other low back pain
CPT/HCPCS: 64493; 64494; 64495; 99152; J2250; J3010

== ENCOUNTER → 2022-09-13 14:41 | Outpatient (CLI) | payer MEDICARE, BC, SELFPAY ==
[2021-05-24 15:21] VITALS: BMI 32.1
--- NOTE | 2022-09-13 14:43 | DI.ECHO.S_ITS ---
[facility]---------+ [facility] +---------+ : : [address] : : : : [id number] : : : : Phone: [phone]---------+ Echocardiogram Report + + :Name: DONNA NUNES Study Date: 09/13/2022 Height: 64 in : :[facility] : Weight: 190 lb: : Gender: Female BSA: 1.9 m2 : :: 1940 Age: 82 yrs : :Reason For Study: Status Post TAVR : :Ordering Physician: Leslie : :Priscila Murcia Performed By: Tashia Mcdonough : :Referring: LESLIE MURCIA : + + Interpretation Summary 1) Normal left ventricular thickness, size, wall motion, and systolic function (EF 60-65%). 2) Normal right ventricular size and function. 3) There is a bioprosthetic aortic valve that is well seated and opens well (mean gradient 7mmHg). There is trace aortic regurgitation. 4) Compared to the Echo done 02/08/2020, stenotic [place] aortic valve has been replaced by a well functioning bioprosthetic aortic valve. Procedure: A two-dimensional transthoracic echocardiogram with color flow and Doppler was performed. The patient was in sinus bradycardia with heart rates between 62-68 bpm during the exam. Left Ventricle: The left ventricle is normal in size and wall thickness. The ejection fraction is estimated to be 60-65%. Left ventricular systolic function appears normal without focal wall motion abnormalities. Diastolic parameters suggest a pseudonormalization pattern, consistent with probable elevated filling pressures. Right Ventricle: The right ventricle is normal in size and function. Atria: The left atrium is moderately dilated. The right atrium is normal in size. There is no Doppler evidence for an interatrial shunt. Mitral Valve: The mitral valve leaflets are heavily calcified. There is mild mitral regurgitation. Aortic Valve: There is a bioprosthetic aortic valve. There is probable normal prosthetic aortic valve function. There is trace aortic regurgitation. Tricuspid Valve: The tricuspid valve is normal in structure and function. There is a trace or physiologic amount of tricuspid regurgitation. The right ventricular systolic pressure is estimated to be at least 40 mmHg based on an estimated right atrial pressure of 3 mm Hg. Pulmonic Valve: The pulmonic valve leaflets are thin and pliable; valve motion is normal. There is a trace or physiologic amount of pulmonic regurgitation. Great Vessels: The aortic root is not well visualized but is probably normal size. The dimensions of the ascending aorta are normal. The IVC is of normal diameter and collapses greater than 50% with a sniff. This suggests a low right atrial pressure of 3 mm Hg. MMode/2D Measurements & Calculations LVIDd: 5.0 cm LVOT diam: 2.0 cm LVIDs: 2.9 cm asc Aorta Diam: 3.3 cm FS: 42.0 % EPSS: 0.40 cm IVSd: 1.0 cm LVPWd: 0.60 cm LV soria. diameter/BSA (cm/m^2): 2.6 LV sys. diameter/BSA (cm/m^2): 1.5 LA dimension: 4.4 cm RA long axis: 5.4 cm LA A2 area: 22.7 cm2 RA area: 17.9 cm2 LA A4 area: 24.9 cm2 RA vol: 50.7 ml LA length (vol): 5.6 cm RA : 26.5 ml/m2 LA vol: 85.2 ml LA vol index: 44.5 ml/m2 RVD1 (basal): 3.2 cm LVLs ap4: 5.6 cm LVLd ap2: 7.2 cm TAPSE_phl: 2.7 cm LVLs ap2: 6.0 cm Doppler Measurements & Calculations Ao V2 max: 179.0 cm/sec LVOT Max Christian: 102.0 cm/sec Ao V2 mean: 128.0 cm/sec LV V1 max P.2 mmHg Ao max P.0 mmHg LV V1 VTI: 27.0 cm Ao mean P.0 mmHg BERTHA(I,D): 1.9 cm2 Ao V2 VTI: 43.9 cm BERTHA(V,D): 1.8 cm2 sev ratio: 0.62 BERTHA indexed to BSA (cm^2/m^2): 1.0 MV E max christian: 159.0 cm/sec TR max christian: 303.0 cm/sec MV A max christian: 83.9 cm/sec TR max P.3 mmHg MV E/A: 1.9 PA V2 max: 80.8 cm/sec Med Peak E' Christian: 6.5 cm/sec PA V2 mean: 57.0 cm/sec E/E' med: 24.5 PA mean P.0 mmHg Lat Peak E' Christian: 7.4 cm/sec E/E' lat: 21.6 E/e' average: 23.1 MV dec time: 0.31 sec MVA(VTI): 2.0 cm2 MV V2 mean: 77.9 cm/sec SV(LVOT): 84.8 ml MV mean P.0 mmHg MV V2 VTI: 42.1 cm AV VR_phl: 0.57 BERTHA(VTI)/BSA_phl: 1.0 Reading Physician:05:43 PM
== END ==
PROVIDERS: Family Provider Family Medicine; PCP Internal Medicine; Referring Provider Internal Medicine Cardiovascular Disease; Visit Provider Internal Medicine Cardiovascular Disease
DX: Z95.3 Presence of xenogenic heart valve (principal); I34.0 Nonrheumatic mitral (valve) insufficiency
CPT/HCPCS: 93306

== ENCOUNTER → 2022-10-01 13:06 | Outpatient (CLI) | payer MEDICARE, BC, SELFPAY ==
[2021-05-24 15:21] VITALS: BMI 32.1
[2022-10-01 13:54] LABS: Add Manual Diff / Slide Review NO; Basophils Absolute Auto 0 /uL (0-100); Basophils Percent Auto 0.7 % (0-2); Eosinophils Absolute Auto 200 /uL (0-450); Eosinophils Percent Auto 2.6 % (2-4); Hematocrit 36.9 % (36-46); Hemoglobin 12.4 g/dL (12.0-16.0); Lymphocytes Absolute Auto 1700 /uL (1100-4500); Lymphocytes Percent Auto 23.8 % (25-40); Mean Corpuscular HGB Conc 33.5 % (30-36); Mean Corpuscular Hemoglobin 30.8 PG (26-34); Mean Corpuscular Volume 92.1 fL (80-100); Monocytes Absolute Auto 700 /uL (0-900); Monocytes Percent Auto 10.4 % (3-14); Neutrophils Absolute Auto 4400 /uL (1500-7000); Neutrophils Percent Auto 62.5 % (50-75); Platelet Count 288 X10^3/uL (150-400); Red Blood Cell Count 4.01 X10^6/uL (4.0-5.2); Red Cell Distribution Width 15.6 % (11.6-14.8); White Blood Cell Count 7.1 X10^3/uL (4.5-11.0)
[2022-10-01 14:18] LABS: Alanine Aminotransferase 16 IU/L (<35); Albumin 4.1 g/dL (3.5-5.0); Albumin Globulin Ratio 1.2 (1.0-2.8); Alkaline Phosphatase 63 U/L (38-126); Aspartate Aminotransferase 25 IU/L (14-36); BUN Creatinine Ratio 32.7 (6-22); Bilirubin Total 0.4 mg/dL (0.2-1.3); Blood Urea Nitrogen 35 mg/dL (7-17); Calcium 9.2 mg/dL (8.4-10.2); Carbon Dioxide 32 mmol/L (22-32); Chloride 96 mmol/L (98-107); Estimated Glomerular Filt Rate 52 mL/min (>60); Globulin 3.4 g/dL (1.7-4.1); Glucose 78 mg/dL (80-110); HEMOLYSIS < 15 (0-50); Potassium 4.4 mmol/L (3.4-5.1); Sodium 134 mmol/L (137-145); Total Protein 7.5 g/dL (6.3-8.2)
[2022-10-01 14:48] LABS: Thyroid Stimulating Hormone 1.58 uIU/mL (0.47-4.68)
[2022-10-01 16:25] LABS: Vitamin D 25 Hydroxy (D3) 84.7 ng/mL (30.0-100.0)
== END ==
PROVIDERS: Family Provider Family Medicine; PCP Internal Medicine; Referring Provider Nurse Practitioner; Visit Provider Nurse Practitioner
DX: E41 Nutritional marasmus (principal); I10 Essential (primary) hypertension; R53.83 Other fatigue
CPT/HCPCS: 36415; 80053; 82306; 84439; 84443; 85025

== ENCOUNTER → 2022-11-05 12:58 | Outpatient (CLI) | payer MEDICARE, BC, SELFPAY ==
[2021-05-24 15:21] VITALS: BMI 32.1
[2022-11-05 13:50] LABS: Cholesterol 199 mg/dL (140-199); HDL Cholesterol 57 mg/dL (40-60); LDL Cholesterol Calculated 120 mg/dL (<100); Triglycerides 112 mg/dL (35-150)
== END ==
PROVIDERS: Family Provider Family Medicine; PCP Internal Medicine; Referring Provider Nurse Practitioner; Visit Provider Nurse Practitioner
DX: E78.5 Hyperlipidemia, unspecified (principal)
CPT/HCPCS: 36415; 80061

== ENCOUNTER → 2022-11-12 09:15 | Outpatient (CLI) | payer MEDICARE, BC, SELFPAY ==
[2021-05-24 15:21] VITALS: BMI 32.1
--- NOTE | 2022-11-12 | DI.US.S_ITS ---
PROCEDURE: US CAROTID DOPPLER BI INDICATIONS: CAROTID ARTERY DISEASE TECHNIQUE: Color and pulse Doppler interrogation was performed of both carotid systems, with image documentation and velocity measurements. COMPARISON: None. FINDINGS: Stenosis calculations are based on SRU (Society of Radiologists in Ultrasound) criteria. Right side: Brachial blood pressure: 164/76 mm Hg. Common carotid artery peak systolic velocity: 77 cm/sec. Internal carotid artery peak systolic velocity: 158 cm/sec. Internal carotid artery end diastolic velocity: 25 cm/sec. External carotid artery peak systolic velocity: 164 cm/sec. ICA/CCA peak systolic ratio: 2.0. Cabezas scale imaging description: Prominent calcified atherosclerotic plaque. Percent internal carotid artery stenosis: 50-69 % Vertebral artery: Right vertebral artery is not well visualized. Left side: Brachial blood pressure: 174/80 mm Hg. Common carotid artery peak systolic velocity: 84 cm/sec. Internal carotid artery peak systolic velocity: 217 cm/sec retrograde. Internal carotid artery end diastolic velocity: 32 cm/sec retrograde. External carotid artery peak systolic velocity: 59 cm/sec. ICA/CCA peak systolic ratio: 3.3. Cabezas scale imaging description: Severe calcified atherosclerotic plaque at the common carotid artery bifurcation region. Percent internal carotid artery stenosis: 50-69 % retrograde Vertebral artery: Flow direction is antegrade. IMPRESSION: 1. Apparent reversal of flow within the left internal carotid artery with increased velocity suggesting superimposed 50-69 % stenosis. Recommend CT angiogram or MR angiogram for further evaluation. 2. No definite flow is seen for a short segment of the left distal common carotid artery just proximal to the bifurcation. 3. 50-69 % of stenosis of the right internal carotid artery. 4. Right vertebral artery is not well visualized. Approved by: Lemuel Chávez M.D. on 11/12/2022 at 11:43
[2022-11-12 09:51] LABS: Add Manual Diff / Slide Review NO; Basophils Absolute Auto 100 /uL (0-100); Basophils Percent Auto 0.8 % (0-2); Eosinophils Absolute Auto 300 /uL (0-450); Eosinophils Percent Auto 3.4 % (2-4); Hematocrit 34.2 % (36-46); Hemoglobin 11.5 g/dL (12.0-16.0); Lymphocytes Absolute Auto 1700 /uL (1100-4500); Lymphocytes Percent Auto 19.1 % (25-40); Mean Corpuscular HGB Conc 33.6 % (30-36); Mean Corpuscular Hemoglobin 31.1 PG (26-34); Mean Corpuscular Volume 92.4 fL (80-100); Monocytes Absolute Auto 900 /uL (0-900); Monocytes Percent Auto 9.8 % (3-14); Neutrophils Absolute Auto 6100 /uL (1500-7000); Neutrophils Percent Auto 66.9 % (50-75); Platelet Count 280 X10^3/uL (150-400); Red Cell Distribution Width 16.2 % (11.6-14.8); White Blood Cell Count 9.1 X10^3/uL (4.5-11.0)
[2022-11-12 10:23] LABS: Alanine Aminotransferase 18 IU/L (<35); Albumin 4.3 g/dL (3.5-5.0); Albumin Globulin Ratio 1.4 (1.0-2.8); Alkaline Phosphatase 55 U/L (38-126); Aspartate Aminotransferase 25 IU/L (14-36); BUN Creatinine Ratio 32.4 (6-22); Bilirubin Total 0.5 mg/dL (0.2-1.3); Blood Urea Nitrogen 35 mg/dL (7-17); Calcium 9.7 mg/dL (8.4-10.2); Carbon Dioxide 31 mmol/L (22-32); Chloride 100 mmol/L (98-107); Estimated Glomerular Filt Rate 52 mL/min (>60); Globulin 3.1 g/dL (1.7-4.1); Glucose 100 mg/dL (80-110); HEMOLYSIS < 15 (0-50); Potassium 4.7 mmol/L (3.4-5.1); Sodium 137 mmol/L (137-145); Total Protein 7.4 g/dL (6.3-8.2)
[2022-11-12 10:37] LABS: Vitamin D 25 Hydroxy (D3) 87.6 ng/mL (30.0-100.0)
[2022-11-12 10:52] LABS: TSH w/ Reflex to FT4 1.09 uIU/mL (0.47-4.68)
== END ==
PROVIDERS: Family Provider Family Medicine; PCP Internal Medicine; Referring Provider Nurse Practitioner; Visit Provider Nurse Practitioner
DX: R53.83 Other fatigue (principal); E41 Nutritional marasmus; R09.89 Other specified symptoms and signs involving the circulatory and respiratory systems; I10 Essential (primary) hypertension; I65.23 Occlusion and stenosis of bilateral carotid arteries
CPT/HCPCS: 36415; 80053; 82306; 84443; 85025; 93880

== ENCOUNTER → 2022-11-23 10:59 | Outpatient (CLI) | payer MEDICARE, BC, SELFPAY ==
[2021-05-24 15:21] VITALS: BMI 32.1
--- NOTE | 2022-11-23 | DI.CT.S_ITS ---
PROCEDURE: CT ANGIO HEAD AND NECK INDICATIONS: ABNORMAL CAROTID ULTRASOUND TECHNIQUE: Pre-contrast 4.5 mm thick sections acquired from the foramen magnum to the vertex. After the administration of intravenous contrast, 1 mm thick sections acquired from the aortic arch through the [place]. Post-contrast 4.5 mm thick sections then re-acquired from the foramen magnum to the vertex. MIP reformats of the arterial vasculature were utilized. For radiation dose reduction, the following was used: automated exposure control, adjustment of mA and/or kV according to patient size. COMPARISON: [facility], , CAROTID DOPPLER BI, 11/12/2022, 10:13. FINDINGS: Noncontrast CT Brain: Cerebrum, cerebellum and brainstem: Cerebral and cerebellar volume loss as well as multifocal white matter chronic ischemic change noted. No evidence of intracranial hemorrhage, mass effect or extra-axial fluid collections. No white matter disease. Cabezas-white distinction is well preserved throughout the exam. Ventricles: Appropriate size and position. No evidence of hydrocephalus. Skull base: The bony sella, pituitary gland and infundibulum are unremarkable. Posterior fossa and cerebellum are unremarkable. Visualized portions of the external auditory canals and tympanic cavity are within normal limits. Calvarium and Scalp: No scalp soft tissue swelling. The underlying calvarium is intact without skull fracture or lytic lesion. Bilateral intraocular lens replacements noted. Paranasal Sinuses: Unremarkable as visualized. No acute sinusitis. Mastoids: Unremarkable as visualized. No mastoid effusion. Cerebral CT Angiogram: Internal carotid arteries: No acute findings. Intracranial ICA are patent with no significant stenosis. No occlusion. No aneurysm. Atherosclerotic vascular calcification noted in the cavernous segment both internal carotid arteries without stenosis Anterior cerebral arteries: Unremarkable. No significant stenosis. No occlusion. No aneurysm. Middle cerebral arteries: Unremarkable. No significant stenosis. No occlusion. No aneurysm. Posterior cerebral arteries: Unremarkable. No significant stenosis. No occlusion. No aneurysm. Basilar artery: Unremarkable. No significant stenosis. No occlusion. No aneurysm. Vertebral arteries: Unremarkable. No significant stenosis. No dissection or occlusion. Dural venous sinuses: Unremarkable given phase of enhancement. Other: Arterial phase brain parenchyma unremarkable. Neck CT Angiogram: Internal carotid arteries: Mild atherosclerotic plaque in both proximal internal carotid arteries noted without stenosis Common carotid arteries: Calcified atherosclerotic plaque in the distal aspects of both common carotid spur just proximal to the bifurcation results in greater than 90% stenosis bilaterally, right greater than left External carotid arteries: Unremarkable. No occlusion. Vertebral arteries: Unremarkable. No significant stenosis. No dissection or occlusion. Aortic arch and mediastinum: The brachiocephalic and left common carotid arteries arise from a common trunk off the aortic arch, an anatomic variant. Other: Arterial phase neck soft tissue within normal limits. Both lung apices are clear. IMPRESSION: 1. Dense calcified atherosclerotic plaque in the distal aspects of both common carotid arteries results in greater than 90% stenosis bilaterally. 2. Atherosclerotic plaque in both proximal ICA results in minimal less than 50% stenosis in the bulb Approved by: Josh Wang M.D. on 11/23/2022 at 15:23
[2022-11-23 11:41] LABS: Estimated Glomerular Filt Rate 49 mL/min (>60)
== END ==
PROVIDERS: Radiology Diagnostic Radiology; Family Provider Family Medicine; PCP Internal Medicine; Referring Provider Nurse Practitioner; Visit Provider Nurse Practitioner
DX: R94.39 Abnormal result of other cardiovascular function study (principal); I10 Essential (primary) hypertension; I65.23 Occlusion and stenosis of bilateral carotid arteries
CPT/HCPCS: 36415; 70496; 70498; 82565; Q9967

== ENCOUNTER → 2023-02-08 10:24 | Outpatient (CLI) | payer MEDICARE, BC, SELFPAY ==
[2021-05-24 15:21] VITALS: BMI 32.1
[2023-02-08 11:27] LABS: Albumin 4.2 g/dL (3.5-5.0); BUN Creatinine Ratio 21.9 (6-22); Blood Urea Nitrogen 28 mg/dL (7-17); Calcium 9.3 mg/dL (8.4-10.2); Carbon Dioxide 31 mmol/L (22-32); Chloride 98 mmol/L (98-107); Cholesterol 162 mg/dL (140-199); Estimated Glomerular Filt Rate 42 mL/min (>60); Glucose 109 mg/dL (80-110); HDL Cholesterol 52 mg/dL (40-60); HEMOLYSIS < 15 (0-50); LDL Cholesterol Calculated 93 mg/dL (<100); Phosphorous 3.9 mg/dL (2.8-4.1); Potassium 4.6 mmol/L (3.4-5.1); Sodium 136 mmol/L (137-145); Triglycerides 86 mg/dL (35-150)
== END ==
PROVIDERS: Family Provider Family Medicine; PCP Internal Medicine; Referring Provider Nurse Practitioner; Visit Provider Nurse Practitioner
DX: E78.5 Hyperlipidemia, unspecified (principal); N18.30 Chronic kidney disease, stage 3 unspecified
CPT/HCPCS: 36415; 80061; 80069

== ENCOUNTER → 2023-04-19 12:20 | Outpatient (CLI) | payer MEDICARE, BC, SELFPAY ==
[2021-05-24 15:21] VITALS: BMI 32.1
== END ==
PROVIDERS: Family Provider Family Medicine; PCP Internal Medicine; Referring Provider Nurse Practitioner; Visit Provider Nurse Practitioner
DX: Z79.899 Other long term (current) drug therapy (principal); R91.8 Other nonspecific abnormal finding of lung field; Z87.891 Personal history of nicotine dependence
CPT/HCPCS: 94060; 94726; 94729

== ENCOUNTER → 2023-06-27 16:31 | Outpatient (CLI) | payer MEDICARE, BC, SELFPAY ==
[2021-05-24 15:21] VITALS: BMI 32.1
--- NOTE | 2023-06-27 | DI.MRI.S_ITS ---
PROCEDURE: MR LUMBAR SPINE WO CON INDICATIONS: DJD TECHNIQUE: Noncontrast sagittal T1 spin echo and T2 fast echo, sagittal STIR, and T2 fast spin echo through the lumbar spine. In cases with scoliosis, additional coronal T2 fast spin echo may be performed. COMPARISON: [facility], MR, MR LUMBAR SPINE WO CON, 05/17/2021, 18:31. FINDINGS: Image quality: Excellent. Alignment and Curvature: Mild levocurvature of the lumbar spine. Mild retrolisthesis of T12 on L1 and L1 on L2. Grade 1 anterolisthesis of L4 on L5. No definite pars defect is seen. Bone Marrow: Multilevel degenerative endplate changes and Schmorl's nodes. Marrow is of normal overall signal. No acute vertebral body compression fractures. Spinal Cord: Conus medullaris terminates at the L1 level. Visualized cord demonstrates normal signal and size. Paraspinous Soft Tissues: No paravertebral masses. T12-L1: Severe disc desiccation and height loss. Small posterior disc bulge. Facet arthropathy. No significant central canal stenosis. No neural foraminal stenosis. L1-L2: Severe disc desiccation and height loss. Posterior disc bulge. Facet arthropathy. Stable mild central canal stenosis and moderate right and mild left foraminal stenosis. L2-L3: Disc desiccation and height loss. Posterior disc bulge. Facet arthropathy and thickening of the ligamentum flavum. Stable moderate central canal stenosis. Stable mild left neural foraminal stenosis. L3-L4: Disc desiccation and height loss. Posterior disc bulge. Facet arthropathy and thickening of the ligamentum flavum. Stable severe central canal stenosis. Stable severe right and mild left neural foraminal stenosis. L4-L5: Disc desiccation and height loss. Posterior disc bulge. Facet arthropathy and thickening of ligamentum flavum. Stable severe central canal stenosis. Stable severe bilateral neural foraminal stenosis. L5-S1: Disc desiccation and posterior disc bulge. Facet arthropathy. Stable mild central canal stenosis. Stable moderate left neural foraminal stenosis. No right neural foraminal stenosis. IMPRESSION: 1. Redemonstration of multilevel degenerative changes of the lumbar spine which are overall similar in appearance compared to prior. 2. Stable multilevel central canal stenosis, most severe at L3-L4 and L4-L5. 3. Multilevel neural foraminal stenosis, severe bilaterally at L4-L5. Dictated by: Myron Clifton M.D. on 06/28/2023 at 8:39 Approved by: Myron Clifton M.D. on 06/28/2023 at 9:00
[2023-06-27 18:10] LABS: Add Manual Diff / Slide Review NO; Basophils Absolute Auto 100 /uL (0-100); Eosinophils Absolute Auto 200 /uL (0-450); Eosinophils Percent Auto 2.8 % (2-4); Hematocrit 35.1 % (36-46); Hemoglobin 11.8 g/dL (12.0-16.0); Lymphocytes Absolute Auto 1600 /uL (1100-4500); Mean Corpuscular HGB Conc 33.6 % (30-36); Mean Corpuscular Hemoglobin 31.4 PG (26-34); Mean Corpuscular Volume 93.4 fL (80-100); Monocytes Absolute Auto 900 /uL (0-900); Monocytes Percent Auto 11.8 % (3-14); Neutrophils Absolute Auto 4900 /uL (1500-7000); Neutrophils Percent Auto 63.4 % (50-75); Platelet Count 273 X10^3/uL (150-400); Red Blood Cell Count 3.75 X10^6/uL (4.0-5.2); Red Cell Distribution Width 18.6 % (11.6-14.8); White Blood Cell Count 7.8 X10^3/uL (4.5-11.0)
[2023-06-27 18:23] LABS: BUN Creatinine Ratio 29.3 (6-22); Blood Urea Nitrogen 34 mg/dL (7-17); Calcium 9.7 mg/dL (8.4-10.2); Carbon Dioxide 31 mmol/L (22-32); Chloride 97 mmol/L (98-107); Estimated Glomerular Filt Rate 47 mL/min (>60); Glucose 102 mg/dL (80-110); HEMOLYSIS < 15 (0-50); Potassium 4.1 mmol/L (3.4-5.1); Sodium 134 mmol/L (137-145)
== END ==
PROVIDERS: Family Provider Family Medicine; PCP Internal Medicine; Referring Provider Internal Medicine; Visit Provider Internal Medicine
DX: M47.816 Spondylosis without myelopathy or radiculopathy, lumbar region (principal); M47.817 Spondylosis without myelopathy or radiculopathy, lumbosacral region; M48.061 Spinal stenosis, lumbar region without neurogenic claudication; M48.07 Spinal stenosis, lumbosacral region; I48.0 Paroxysmal atrial fibrillation
CPT/HCPCS: 36415; 72148; 80048; 85025

== ENCOUNTER → 2023-08-20 11:52 | Outpatient (CLI) | payer MEDICARE, BC, SELFPAY ==
[2021-05-24 15:21] VITALS: BMI 32.1
--- NOTE | 2023-08-20 | DI.CT.S_ITS ---
PROCEDURE: CT CHEST WO CON INDICATIONS: Solitary pulmonary nodule TECHNIQUE: Noncontrast 5 mm thick sections acquired from the pulmonary apices to the posterior costophrenic angles. 1 mm lung window, 5 mm thick coronal and sagittal and 7 mm axial MIP reformats were then acquired. For radiation dose reduction, the following was used: automated exposure control, adjustment of mA and/or kV according to patient size. COMPARISON: [facility], CT, CT ABDOMEN PELVIS WO CON, 01/28/2020, 20:53. [facility], CT, CT ANGIO CHEST PE, 02/18/2023, 19:42. [facility], CR, XR CHEST 2 VIEWS, 07/05/2023, 13:38. FINDINGS: Image quality: Diagnostic. Lower Neck: No enlarged lymph nodes. Thyroid: No thyroid nodules which require sonographic follow up, per consensus guidelines. Axillae: No enlarged lymph nodes. Chest Wall: Unremarkable. Bones: Unremarkable. Lungs and Pleura: The ground-glass nodules including the 10 mm right lower lobe nodule described on the last exam are no longer visualized. Bilateral patchy ground-glass opacities are present with mosaic attenuation. Subpleural septal thickening. Biapical scars. No pneumothorax. Trace left pleural effusion. No consolidation. Heart: Heart size is normal. No pericardial effusion. Severe coronary artery calcification. There is a aortic valve prosthesis. A cardiac pacemaker is seen. Thoracic Vessels: The aorta and pulmonary arteries demonstrate normal size. Mediastinum and Roseanne: No enlarged lymph nodes. Esophagus: No wall thickening. Small hiatal hernia. Upper Abdomen: There is a 1.2 cm rim calcified nodule in the anterior aspect of the hepatic dome, unchanged in size, likely sequelae of remote infection. Visualized upper abdomen solid organs and bowel loops appear normal. IMPRESSION: 1. Interval resolution of ground-glass nodules. 2. Bilateral ground-glass opacities with mosaic attenuation in lungs and subpleural septal thickening. Differential diagnoses pulmonary edema, hypersensitivity pneumonitis or pneumonia. Recommend clinical correlation and follow-up. 3. Mild cardiomegaly. There is a aortic valve prosthesis. 4. Severe coronary artery atherosclerosis. Dictated by: Prabhu Landa M.D. on 08/20/2023 at 12:38 Approved by: Prabhu Landa M.D. on 08/20/2023 at 12:47
== END ==
PROVIDERS: Family Provider Family Medicine; PCP Internal Medicine; Referring Provider Internal Medicine; Visit Provider Internal Medicine
DX: R91.8 Other nonspecific abnormal finding of lung field (principal); I51.7 Cardiomegaly; I25.10 Atherosclerotic heart disease of native coronary artery without angina pectoris; Z95.2 Presence of prosthetic heart valve
CPT/HCPCS: 71250

== ENCOUNTER → 2023-10-17 16:42 | Outpatient (CLI) | payer MEDICARE, BC, SELFPAY ==
[2023-09-04 15:03] VITALS: BMI 32.1
--- NOTE | 2023-10-17 16:44 | DI.RAD.S_ITS ---
PROCEDURE: XR LUMBAR SPINE MIN 4V INDICATIONS: BACK PAIN TECHNIQUE: 5 views of the lumbar spine were acquired, including bilateral oblique views. COMPARISON: [facility], , XR LUMBAR SPINE MIN 4V, 05/05/2021, 9:41. FINDINGS: Bones: 5 nonrib-bearing vertebrae are present. There is 1.0 centimeters of L4-L5 anterolisthesis secondary to facet hypertrophy. There is mild convex left scoliosis.. No vertebral body compression fractures. No suspicious bony lesions. Spine degenerative disc disease and facet arthropathy. Partially visualized left left hip arthroplasty. Soft tissues: Overlying bowel gas pattern is normal. No suspicious soft tissue calcifications. Oblique images: No pars defects. IMPRESSION: Grade 2 L4-L5 degenerative spondylolisthesis. Mild convex left scoliosis. Multilevel degenerative disc disease. Multilevel facet arthropathy. No fracture. No acute osseous lesion. If symptoms and/or clinical suspicion for pathology persists, evaluation with MRI should be considered for further assessment. Dictated by: Kayleen Agarwal MD, PhD on 10/17/2023 at 17:11 Approved by: Kayleen Agarwal MD, PhD on 10/17/2023 at 17:12
== END ==
PROVIDERS: Family Provider Family Medicine; PCP Internal Medicine; Referring Provider Physical Medicine & Rehabilitation; Visit Provider Physical Medicine & Rehabilitation
DX: M47.817 Spondylosis without myelopathy or radiculopathy, lumbosacral region (principal); M47.816 Spondylosis without myelopathy or radiculopathy, lumbar region; M43.16 Spondylolisthesis, lumbar region; M51.36 Other intervertebral disc degeneration, lumbar region; M41.9 Scoliosis, unspecified
CPT/HCPCS: 72110

== ENCOUNTER → 2023-12-06 12:59 | Outpatient (CLI) | payer MEDICARE, BC, SELFPAY ==
[2023-09-04 15:03] VITALS: BMI 32.1
[2023-12-06 13:35] LABS: Add Manual Diff / Slide Review NO; Basophils Absolute Auto 100 /uL (0-100); Basophils Percent Auto 0.7 % (0-2); Eosinophils Absolute Auto 100 /uL (0-450); Eosinophils Percent Auto 0.8 % (2-4); Hematocrit 33.9 % (36-46); Hemoglobin 11.3 g/dL (12.0-16.0); Lymphocytes Absolute Auto 1200 /uL (1100-4500); Lymphocytes Percent Auto 13.7 % (25-40); Mean Corpuscular HGB Conc 33.2 % (30-36); Mean Corpuscular Hemoglobin 31.4 PG (26-34); Mean Corpuscular Volume 94.5 fL (80-100); Monocytes Absolute Auto 1100 /uL (0-900); Monocytes Percent Auto 11.9 % (3-14); Neutrophils Absolute Auto 6500 /uL (1500-7000); Neutrophils Percent Auto 72.9 % (50-75); Platelet Count 332 X10^3/uL (150-400); Red Blood Cell Count 3.58 X10^6/uL (4.0-5.2); Red Cell Distribution Width 16.3 % (11.6-14.8); White Blood Cell Count 8.9 X10^3/uL (4.5-11.0)
[2023-12-06 18:58] LABS: Blood Urea Nitrogen 29 mg/dL (7-17); Calcium 9.5 mg/dL (8.4-10.2); Carbon Dioxide 29 mmol/L (22-32); Chloride 96 mmol/L (98-107); Estimated Glomerular Filt Rate 47 mL/min (>60); Glucose 87 mg/dL (80-110); HEMOLYSIS < 15 (0-50); Potassium 4.4 mmol/L (3.4-5.1); Sodium 133 mmol/L (137-145)
== END ==
PROVIDERS: Family Provider Family Medicine; PCP Internal Medicine; Referring Provider Physician Assistant Medical; Visit Provider Physician Assistant Medical
DX: I48.0 Paroxysmal atrial fibrillation (principal)
CPT/HCPCS: 36415; 80048; 85025

== ENCOUNTER 2023-12-10 12:38 | Outpatient (CLI) | payer MEDICARE, BC, SELFPAY ==
[2023-09-04 15:03] VITALS: BMI 32.1
[2023-12-10] VITALS (8 sets, daily range): BP systolic 168–218; BP diastolic 59–91; PULSE 60–65; RESP 15–23; TEMP 35.9; O2SAT 94–97
--- NOTE | 2023-12-10 13:30 | DI.RAD.S_ITS ---
PROCEDURE: PAIN L/SI FACET INJ/BLK 1STL INDICATIONS: SPONDYLOSIS COMPARISON: [facility], , PAIN L/SI FACET INJ/BLK 1STL, 05/30/2021, 16:08. FINDINGS: Fluoroscopic spot filming was performed to verify placement of spinal needles at the left L1, L2 and L3 level(s), as labeled on the films. Appropriate location(s) of the needle tip(s) was confirmed by injection of iodinated contrast. IMPRESSION: Spinal needles at the left L1, L2 and L3 levels. Please see procedural report for details. Dictated by: Jose Cloud M.D. on 12/10/2023 at 19:31 Approved by: Jose Cloud M.D. on 12/10/2023 at 19:31
[2023-12-10] MEDS: MIDAZOLAM 2 MG/2 ML VIAL IV (13:54)
[2023-12-10] MEDS: iopamidoL 15 ML VIAL 3 ML INJ (14:01)
[2023-12-10] MEDS: BUPIVACAINE 0.5% (PF) 10 ML VIAL 5 ML INJ (14:02)
--- NOTE | 2023-12-10 14:12 | PM.PROC.IR.1 ---
Date/Time/Diagnoses Date of procedure: 12/10/23 Time of procedure: 14:12 Pre-procedure diagnosis: 1. FACET ARTHROPATHY Post-procedure diagnosis: same Procedure Notes Procedure: 1. Right L1, L2, L3 MB BLOCKS Indications: Kait is referred by Dr. Cary for treatment of Right Axial LBP. Physician: Gerardo Johnson Total Fluoroscopy time (seconds): 13 Total sedation minutes: 13 Complications: none Procedure in detail & Post-procedure care: DESCRIPTION OF PROCEDURE Fluoroscopically guided, contrast-controlled right L1, L2, L3 medial branch blocks with 0.5cc of 0.5% Marcaine. Following review of allergy and review of potential side effects and complications, including, but not necessarily limited to, infection, allergic reaction, local tissue breakdown, nerve injury, paralysis, stroke and possible , the patient indicated that the patient understood and agreed to proceed. An informed consent document was signed by the patient, witnessed by a nurse, and placed in the patient's chart. After review of previous anaesthesic history and IV conscious sedation the patient was deemed safe to proceed with today?s procedure with IV conscious sedation as ASA class II designation. Safety time-out was performed to confirm patient ID, procedure to be performed and site of procedure. IV sedation was accomplished with a combination of 2mg of Versed was administered by the RN after DO order, titrated to patient comfort during the course of the procedure while the patient remained responsive to all verbal commands In the prone position, following sterile prep and drape of the lumbar region, the right L1, L2, L3 anatomical location of the medial branch of the dorsal ramus was identified fluoroscopically. Subsequently an anesthetic skin wheal using 1% lidocaine solution was initiated at each of the anatomical spots. Subsequently then a 22-gauge 3.5-inch spinal needle was atraumatically introduced and advanced under fluoroscopic guidance at each of the corresponding sites at the right L1, L2, L3 MB. After negative aspiration, 0.2 cc of Isovue 200 was injected, confirming placement without vascular or intrathecal uptake. Subsequently then 0.5cc of 0.5% Marcaine solution was injected at each of the corresponding sites at the right L1, L2, L3 medial branch locations. The patient tolerated the procedure well without signs or symptoms of complications. The procedure tolerated the procedure well without signs or symptoms of complications prior to transfer to the recovery area continued monitoring without incident. Post-procedure, the patient was monitored initiating provocative activities to measure the amount of relief from block of the facetogenic pain. The patient reported a VAS of 7 prior to the procedure and a post-procedure VAS of 1. It has been a pleasure to assist in the diagnostic and therapeutic care of your patient. POST OP INSTRUCTIONS The patient was provided with a Pain Log to complete over the next several hours and subsequent days prior to the patient's follow up with the ordering physician. If the patient has bereavement program coordinator relief to the solution applied, then they may be a candidate for medial branch rhizotomy. The patient is aware, was provided, once again, with a Pain Log and will follow up with the referring physician for review and clinical correlation.
== END 2023-12-10 14:26 | disposition home or self-care (01) ==
LOC: RAD 12:38
PROVIDERS: Family Provider Family Medicine; PCP Internal Medicine; Referring Provider Physical Medicine & Rehabilitation; Visit Provider Physical Medicine & Rehabilitation
DX: M47.816 Spondylosis without myelopathy or radiculopathy, lumbar region (principal)
CPT/HCPCS: 64493; 64494; 99152; J2250

== ENCOUNTER 2024-02-20 08:25 | Outpatient (CLI) | payer MEDICARE, BC, SELFPAY ==
[2023-09-04 15:03] VITALS: BMI 32.1
[2024-02-20] VITALS (8 sets, daily range): BP systolic 140–175; BP diastolic 61–79; PULSE 60–65; RESP 16–19; TEMP 36.1; O2SAT 94–98
--- NOTE | 2024-02-20 09:15 | DI.RAD.S_ITS ---
PROCEDURE: PAIN L/S TRANSFORAMINAL INJECT INDICATIONS: Right L1-2 transforaminal RENE COMPARISON: None. FINDINGS: Fluoroscopic spot filming was performed to verify placement of spinal needles at the right L1-2 level(s), as labeled on the films. Appropriate location(s) of the needle tip(s) was confirmed by injection of iodinated contrast. IMPRESSION: Fluoroscopic guidance utilized for an epidural injection at right L1-2. Dictated by: Moises Bateman M.D. on 02/20/2024 at 11:13 Approved by: Moises Bateman M.D. on 02/20/2024 at 11:14
[2024-02-20] MEDS: MIDAZOLAM 2 MG/2 ML VIAL 1 MG IV (09:36)
[2024-02-20] MEDS: DEXAMETHASONE 10 MG/ML VIAL INJ (09:44)
[2024-02-20] MEDS: BUPIVACAINE 0.25% (PF) VIAL 2 ML INJ (09:44)
[2024-02-20] MEDS: BETAMETHASONE 30 MG/5 ML MDV 6 MG INJ (09:44)
[2024-02-20] MEDS: iopamidoL 15 ML VIAL 3 ML INJ (09:45)
--- NOTE | 2024-02-20 09:56 | P.PCN_ITS ---
Date/Time/Diagnoses Date of procedure: 02/20/24 Time of procedure: 09:56 Pre-procedure diagnosis: 1. FORAMINAL STENOSIS WITH LE SYMPTOMS Post-procedure diagnosis: same Procedure Notes Procedure: 1. FLUOROSCOPICALLY GUIDED CONTRAST CONTROLLED TRANSFORAMINAL EPIDURAL STEROID INJECTION - RIGHT L1/2 TFESI Indications: Kait is referred by Dr. Cary for treatment of Foraminal Stenosis with right LE Symptoms Physician: Gerardo Johnson Total Fluoroscopy time (seconds): 30 Total sedation minutes: 16 Complications: none Procedure in detail & Post-procedure care: FINDINGS Foraminal Nerve Root Compression secondary to disc disease and facet hypertrophy DESCRIPTION OF PROCEDURE Following review of allergy and review of potential side effects and complications, including, but not necessarily limited to, infection, allergic reaction, local tissue breakdown, stroke, temporary or permanent nerve injury, paralysis, and possible , the patient indicated that the patient understood and agreed to proceed. An informed consent document was signed by the patient, witnessed by a nurse, and placed in the patient's chart. Additionally, other treatment options including medications, modalities, and physical therapy were reviewed with the patient. After review of previous anaesthesic history and IV conscious sedation the patient was deemed safe to proceed with today?s procedure with IV conscious sedation as ASA class II designation. Safety time-out was performed to confirm patient ID, procedure to be performed and site of procedure. IV sedation was accomplished with a combination of 1mg of Versed was administered by the RN after DO order, titrated to patient comfort during the course of the procedure while the patient remained responsive to all verbal commands In the prone position following sterile prep and drape of the lumbar region, the right L1/2 posterior neuroforamen was identified fluoroscopically. The skin was anesthetized via a 25-gauge 1.5-inch needle with 1% lidocaine solution. At this point, a 25-gauge 3.5-inch spinal needle was atraumatically introduced and advanced under fluoroscopic guidance through the posterior right L1/2 neuroforamen to approximately the anterior aspect of the canal. Depth was confirmed on lateral view. Following negative aspiration, injection of approximately 1.5cc of Isovue 200 under live fluoroscopy in the AP view c onfirmed excellent flow along the nerve root, into the epidural space without vascular or intrathecal uptake observed Radiological data, including multiple fluoroscopic views of the lumbosacral spi ne, reveal a spinal needle at the right L1/2 posterior neuroforamen. Subsequent views show flow of contrast material flowing superiorly and inferiorly along the nerve root confirming epidural flow. Subsequently, a test dose of 1.5 cc of 1% lidocaine solution was administered and patient was observed for two minutes for signs or symptoms of complications, including abdominal pain, shortness of breath, bilateral upper or lower extremity weakness, nausea and vomiting, prior to steroid injection. At this point, a total of 2cc or 10mg of dexamethasone and 6mg of betamethasone was injected without incident. The patient tolerated the procedure well without signs or symptoms of complications prior to transfer to the recovery area continued monitoring without incident. The patient was then transferred to the recovery area where they were observed for an appropriate time after the injection. The patient reported a VAS score of 7 prior to the procedure and a post-procedure VAS of 1. POST OP INSTRUCTIONS The patient was provided a Pain Log to continue to record their response to the target-specific procedure prior to follow-up visit with their referring physician. Additionally, specific post-injection care instructions and a contact number to our office were provided if concerns arise regarding possible complications associated with the procedure are suspected.
== END 2024-02-20 10:16 | disposition home or self-care (01) ==
LOC: RAD 08:25
PROVIDERS: Family Provider Family Medicine; PCP Internal Medicine; Referring Provider Physical Medicine & Rehabilitation; Visit Provider Physical Medicine & Rehabilitation
DX: M48.061 Spinal stenosis, lumbar region without neurogenic claudication (principal); M51.16 Intervertebral disc disorders with radiculopathy, lumbar region; M47.26 Other spondylosis with radiculopathy, lumbar region
CPT/HCPCS: 64483; 99152; J0702; J1100; J2250; J3490

== ENCOUNTER 2024-04-09 06:21 | Day surgery (SDC) | payer MEDICARE, BC, SELFPAY ==
[2023-09-04 15:03] VITALS: BMI 32.1
[2024-04-09] MEDS: LACTATED RINGERS 1,000 ML 42 ML IV (07:00)
[2024-04-09 07:14] VITALS: BP 144/65; PULSE 66; RESP 16; TEMP 36.2; O2SAT 98
[2024-04-09 07:28] VITALS: BMI 29.2
--- NOTE | 2024-04-09 07:39 | PM.PREOP ---
Pre-operative Note COVID-19 COVID-19 status: Not tested Interval Note History & Physical reviewed/Exam performed by Physician: Yes Changes to H&P: No ASA Class (for procedural sedation): III
--- NOTE | 2024-04-09 08:17 | PM.OP.COLON ---
Operative Date/Time/Diagnoses Date of procedure: 04/09/24 Time of procedure: 08:17 Pre-op diagnosis: Positive cologuard Post-op diagnosis: same Procedure & Clinicians Study performed: Colonoscopy Same procedure as scheduled: Yes Surgeon: Jeison Wood Procedure Notes Procedure in detail: Surgeon: Jeison Wood MD Anesthesia: Ana Lilia Knapp MD Procedure: The patient was brought to the endoscopy suite, placed in left lateral decubitus position. The patient was connected to monitoring devices. A time-out was performed. Sedation was administered. Once the patient was adequately sedated, a digital rectal exam was performed and was normal. The scope was then inserted and advanced to the cecum where the appendiceal orifice was identified and photographed. The scope was then slowly withdrawn over greater than 6 minutes. The mucosa was thoroughly inspected. There was significant pandiverticulosis greatest in the sigmoid colon. No polyps or masses were noted. The scope was retroflexed in the rectum. Internal hemorrhoids were noted. The scope was straightened and removed. The patient was awakened and brought to recovery. Scope withdrawal time: 11 minutes Sedation time: 26 minutes EBL: 0 Findings: Pandiverticulosis, internal hemorrhoids Post-procedure Disposition: PACU
[2024-04-09 08:19] VITALS: BP 122/50; PULSE 61; RESP 16; TEMP 36.6; O2SAT 98
[2024-04-09 08:24] VITALS: BP 127/48; PULSE 60; RESP 18; O2SAT 98
[2024-04-09 08:29] VITALS: BP 136/56; PULSE 62; RESP 18; TEMP 36.6; O2SAT 98
[2024-04-09 08:34] VITALS: BP 139/50; PULSE 62; RESP 18; O2SAT 98
== END 2024-04-09 08:58 | disposition home or self-care (01) ==
PROVIDERS: Family Provider Family Medicine; PCP Internal Medicine; Referring Provider Surgery; Visit Provider Surgery
PROC: 0DJD8ZZ Inspection of Lower Intestinal Tract, Via Natural or Artificial Opening Endoscopic (ICD-10-PCS; CPT 45378; principal; 2024-04-09 07:45)
DX: Z12.11 Encounter for screening for malignant neoplasm of colon (principal); R19.5 Other fecal abnormalities; K57.30 Diverticulosis of large intestine without perforation or abscess without bleeding; K64.8 Other hemorrhoids
CPT/HCPCS: G0121; J2704

== ENCOUNTER 2024-06-30 12:33 | Outpatient (CLI) | payer MEDICARE, BC, SELFPAY ==
[2023-09-04 15:03] VITALS: BMI 32.1
[2024-06-30] VITALS (8 sets, daily range): BP systolic 119–147; BP diastolic 56–67; PULSE 60–68; RESP 16–20; TEMP 36.4; O2SAT 94–100
--- NOTE | 2024-06-30 13:00 | DI.RAD.S_ITS ---
PROCEDURE: PAIN L/SI FACET INJ/BLK 1STL INDICATIONS: Right L1, L2 and L3 MBB SA COMPARISON: [facility], , PAIN L/SI FACET INJ/BLK 1STL, 12/10/2023, 13:59. FINDINGS: Fluoroscopic spot filming was performed to verify placement of spinal needles at the right L1, L2, and L3 medial branch level(s), as labeled on the films. Appropriate location(s) of the needle tip(s) was confirmed by injection of iodinated contrast. IMPRESSION: Imaging guidance provided for multilevel right lumbar medial branch block performed by the referring interventional pain specialist. Dictated by: Flo Montanez M.D. on 06/30/2024 at 15:58 Approved by: Flo Montanez M.D. on 06/30/2024 at 15:59
[2024-06-30] MEDS: MIDAZOLAM 2 MG/2 ML VIAL 1 MG IV (13:19)
[2024-06-30] MEDS: LIDOCAINE 2% INJ MDV 20ML 5 ML INJ (13:22)
[2024-06-30] MEDS: iopamidoL 15 ML VIAL 3 ML INJ (13:22)
--- NOTE | 2024-06-30 13:38 | PM.PROC.IR.1 ---
Date/Time/Diagnoses Date of procedure: 06/30/24 Time of procedure: 13:38 Pre-procedure diagnosis: 1. FACET ARTHROPATHY Post-procedure diagnosis: same Procedure Notes Procedure: 1. Right L1, L2, L3 MB BLOCKS SA Indications: Kait is referred by Dr. Cary for treatment of Right Axial LBP. Physician: Gerardo Johnson Total Fluoroscopy time (seconds): 17 Total sedation minutes: 16 Complications: none Procedure in detail & Post-procedure care: DESCRIPTION OF PROCEDURE Fluoroscopically guided, contrast-controlled right L1, L2, L3 medial branch blocks with 0.5cc of 2% Lidocaine. Following review of allergy and review of potential side effects and complications, including, but not necessarily limited to, infection, allergic reaction, local tissue breakdown, nerve injury, paralysis, stroke and possible , the patient indicated that the patient understood and agreed to proceed. An informed consent document was signed by the patient, witnessed by a nurse, and placed in the patient's chart. After review of previous anaesthesic history and IV conscious sedation the patient was deemed safe to proceed with today?s procedure with IV conscious sedation as ASA class II designation. Safety time-out was performed to confirm patient ID, procedure to be performed and site of procedure. IV sedation was accomplished with a combination of 1mg of Versed was administered by the RN after DO order, titrated to patient comfort during the course of the procedure while the patient remained responsive to all verbal commands In the prone position, following sterile prep and drape of the lumbar region, the right L1, L2, L3 anatomical location of the medial branch of the dorsal ramus was identified fluoroscopically. Subsequently an anesthetic skin wheal using 1% lidocaine solution was initiated at each of the anatomical spots. Subsequently then a 22-gauge 3.5-inch spinal needle was atraumatically introduced and advanced under fluoroscopic guidance at each of the corresponding sites at the right L1, L2, L3 MB. After negative aspiration, 0.2 cc of Isovue 200 was injected, confirming placement without vascular or intrathecal uptake. Subsequently then 0.5cc of 2% Lidocaine solution was injected at each of the corresponding sites at the right L1, L2, L3 medial branch locations. The patient tolerated the procedure well without signs or symptoms of complications. The procedure tolerated the procedure well without signs or symptoms of complications prior to transfer to the recovery area continued monitoring without incident. Post-procedure, the patient was monitored initiating provocative activities to measure the amount of relief from block of the facetogenic pain. The patient reported a VAS of 7 prior to the procedure and a post-procedure VAS of 1. It has been a pleasure to assist in the diagnostic and therapeutic care of your patient. POST OP INSTRUCTIONS The patient was provided with a Pain Log to complete over the next several hours and subsequent days prior to the patient's follow up with the ordering physician. If the patient has crm marketing analyst relief to the solution applied, then they may be a candidate for medial branch rhizotomy. The patient is aware, was provided, once again, with a Pain Log and will follow up with the referring physician for review and clinical correlation.
== END 2024-06-30 13:55 | disposition home or self-care (01) ==
LOC: RAD 12:34
PROVIDERS: Family Provider Family Medicine; PCP Internal Medicine; Referring Provider Physical Medicine & Rehabilitation; Visit Provider Physical Medicine & Rehabilitation
DX: M47.816 Spondylosis without myelopathy or radiculopathy, lumbar region (principal)
CPT/HCPCS: 64493; 64494; 64495; 99152; J2250

== ENCOUNTER 2024-07-30 07:05 | Outpatient (CLI) | payer MEDICARE, BC, SELFPAY ==
[2024-07-15 11:15] VITALS: BMI 32.1
[2024-07-30] VITALS (14 sets, daily range): BP systolic 119–169; BP diastolic 56–69; PULSE 20–62; RESP 16–20; TEMP 36.1; O2SAT 94–99
--- NOTE | 2024-07-30 07:06 | DI.RAD.S_ITS ---
PROCEDURE: PAIN L/S MED/LAT N RFA INDICATIONS: lumbar anthopathy COMPARISON: None. FINDINGS/IMPRESSION: Fluoroscopic spot filming was performed to verify placement of spinal needles at the L1 through L3 level(s), as labeled on the films. Appropriate location(s) of the needle tip(s) was confirmed by injection of iodinated contrast. Dictated by: Moises Bateman M.D. on 07/30/2024 at 13:01 Approved by: Moises Bateman M.D. on 07/30/2024 at 13:01
[2024-07-30] MEDS: MIDAZOLAM 2 MG/2 ML VIAL 1 MG IV (08:18)
[2024-07-30] MEDS: BUPIVACAINE 0.5% (PF) 10 ML VIAL 5 ML INJ (08:22)
[2024-07-30] MEDS: LIDOCAINE 1% 20 ML 5 ML INJ (08:23)
[2024-07-30] MEDS: MIDAZOLAM 2 MG/2 ML VIAL 0.5 MG IV (08:28)
--- NOTE | 2024-07-30 08:52 | P.PCN_ITS ---
Date/Time/Diagnoses Date of procedure: 07/30/24 Time of procedure: 08:52 Pre-procedure diagnosis: 1. RECALCITRANT FACET ARTHROPATHY Post-procedure diagnosis: same Procedure Notes Procedure: 1. RIGHT L1, L2, L3 MEDIAL BRANCH RADIOFREQUENCY NEUROTOMY Indications: Kait is referred by Dr. Cary for treatment of facet arthropathy. Physician: Gerardo Johnson Total Fluoroscopy time (seconds): 16 Total sedation minutes: 26 Complications: none Procedure in detail & Post-procedure care: DESCRIPTION OF PROCEDURE Right L2, L3 and L4 medial branch radio-frequency neurotomy The patient is well known to this clinic having undergone previous facet injections with good but temporary relief. The patient has experienced appropriate, concordant relief with previous facet and median branch blocks but the patient's pain has been recalcitrant to further conservative measures. Therefore, based upon the patient's relief and persistent symptoms, the patient is considered an appropriate candidate for facet rhizotomy. All of the patient's questions regarding the risks versus benefits of the procedure, including, but not limited to, bleeding, infection, temporary as well as lasting nerve injury, paralysis, stroke, and , as well treatment alternatives were answered to satisfaction. After obtaining informed consent, denial of pertinent drug allergies, as well as being made aware of the potential risks of bleeding, infection, spinal cord trauma, paralysis, temporary and permanent nerve damage, seizure, stroke, and possible , the patient was brought to the fluoroscopy suite and positioned prone on the fluoroscopy table. The lumbar region was prepped with Betadine and covered with a fenestrated drape in the usual sterile fashion. Appropriate monitors applied including pulse oximeter, pulse, and blood pressure for regular monitoring throughout the procedure. After review of previous anaesthesic history and IV conscious sedation the patient was deemed safe to proceed with today?s procedure with IV conscious sedation as ASA class II designation. Safety time-out was performed to confirm patient ID, procedure to be performed and site of procedure. IV sedation was accomplished with a combination of 2mg of Versed administered by the RN after DO order, titrated to patient comfort during the course of the procedure while the patient remained responsive to all verbal commands. After local infiltration using 1% lidocaine, under fluoroscopic guidance, a 10- cm RF insulated needle with a 10-mm active tip was positioned parallel to the junction of the right the superior articulating process where the L2 medial branch resides. Needle placement was confirmed with sensory stimulation at 50 Hz, with motor stimulation of .5v on the right which produced local stimulation without radicular component. The stimulation was then increased to 2v with, once again, only local multifidus stimulation without radicular component. This was then followed by two discreet lesions performed at 80 degrees Celsius for 90 seconds each. The needle was then removed and the identical procedure was performed along the length of the right L3 medial branch with motor stimulation at .7v on the right. The identical procedure was once again performed along the length of the right L4 and medial branch with motor stimulation of .5v on the right. The patient tolerated the procedure well without signs or symptoms of complications prior to transfer to the recovery area continued monitoring without incident. The patient was then transferred to the recovery area where they were observed for an appropriate period of time after the injection. The patient reported a VAS score of 9 prior to the procedure and a post-procedure VAS of 0. POST OP INSTRUCTIONS The patient was provided a Pain Log to continue to record the patient's response to the target-specific procedure prior to the patient's follow-up visit with the referring physician. Additionally, specific post-injection care instructions and a contact number to our office were provided if concerns arise regarding possible complications associated with the procedure are suspected.
== END 2024-07-30 09:30 | disposition home or self-care (01) ==
PROVIDERS: Family Provider Family Medicine; PCP Internal Medicine; Referring Provider Physical Medicine & Rehabilitation; Visit Provider Physical Medicine & Rehabilitation
DX: M47.816 Spondylosis without myelopathy or radiculopathy, lumbar region (principal)
CPT/HCPCS: 64635; 64636; 99152; 99153; J2250

== ENCOUNTER → 2024-08-10 13:55 | Outpatient (CLI) | payer MEDICARE, BC, SELFPAY ==
[2024-07-15 11:15] VITALS: BMI 32.1
--- NOTE | 2024-08-10 13:56 | DI.US.S_ITS ---
PROCEDURE: US ABDOMEN LIMITED INDICATIONS: abn liver enzymes,hx of hepatitis TECHNIQUE: Real-time scanning was performed of the abdominal and retroperitoneal organs, with image documentation. COMPARISON: [facility], CT, CT ABDOMEN PELVIS WO CON, 01/28/2020, 20:53. FINDINGS: Liver: Liver is normal in size and homogeneous in echotexture. Gallbladder: No gallstones. No wall thickening. No pericholecystic edema. Negative sonographic Lima's sign. Biliary ducts: Intrahepatic bile ducts are non-dilated. Extrahepatic bile duct caliber measures 6 mm. Normal is 6-7 mm or less in diameter, or 10 mm or less post-cholecystectomy. Pancreas: Visualized portions of the pancreas are sonographically normal. Miscellaneous: No free abdominal fluid. IMPRESSION: Liver is normal in size and echogenicity. No acute sonographic abnormality is seen in the right upper quadrant. Approved by: Lemuel Chávez M.D. on 08/11/2024 at 8:25
== END ==
PROVIDERS: Family Provider Family Medicine; PCP Internal Medicine; Referring Provider Internal Medicine; Visit Provider Internal Medicine
DX: R74.8 Abnormal levels of other serum enzymes (principal); Z86.19 Personal history of other infectious and parasitic diseases; Z91.89 Other specified personal risk factors, not elsewhere classified
CPT/HCPCS: 76705

== ENCOUNTER → 2024-11-03 14:56 | Outpatient (CLI) | payer MEDICARE, BC, SELFPAY ==
[2024-07-15 11:15] VITALS: BMI 32.1
--- NOTE | 2024-11-03 14:57 | DI.CT.S_ITS ---
PROCEDURE: CT CHEST WO CON INDICATIONS: F/U GROUND GLASS INFILTRATES FROM 07/2023 TECHNIQUE: Noncontrast 5 mm thick sections acquired from the pulmonary apices to the posterior costophrenic angles. 1 mm lung window, 5 mm thick coronal and sagittal and 7 mm axial MIP reformats were then acquired. For radiation dose reduction, the following was used: automated exposure control, adjustment of mA and/or kV according to patient size. COMPARISON: [facility], CT, CT CHEST WO CON, 08/20/2023, 11:59. FINDINGS: Image quality: Diagnostic. Lungs and Pleura: Ground-glass opacities in mosaic pattern are present in upper and lower lungs in a similar pattern. Scattered solid bilateral lung nodules, right lower lobe centrally measuring 6 mm and posterior right lower lobe 4 mm nodule are stable. Biapical pleural plaquing and bibasilar reticulation are present. No honeycombing. Central and peripheral airways are normal without bronchial wall thickening or bronchiectasis.. No pleural effusions or pleural calcifications. Lower Neck: No enlarged lymph nodes. Thyroid: Normal CT appearance. Axillae: No enlarged lymph nodes. Chest Wall: Left chest wall pacemaker power pack. Bones: No suspicious bone lesion. Mild degenerative changes in the spine. Thoracic Vessels: Aortic valvuloplasty. Normal aortic contour. Moderate atherosclerotic calcification. Enlarged pulmonary arteries. Mediastinum and Roseanne: Borderline mediastinal adenopathy. Precarinal node measures 1.3 cm short axis, similar. Heart: Mild cardiomegaly. Very dense mitral annular calcification. Coronary artery calcification. No pericardial effusion. Esophagus: No wall thickening. No hiatal hernia. Upper Abdomen: Calcification in the right lobe of the liver. Visible portions of upper abdominal organs are otherwise normal. IMPRESSION: Stable pattern of very mild bilateral heterogeneous ground-glass opacities throughout the lungs as well as stable lung nodules. Findings are suggestive of chronic lung disease such as hypersensitivity pneumonitis, drug induced toxicity, or in the setting of cardiomegaly, interstitial and pulmonary edema. Reactive mediastinal adenopathy is relatively unchanged. Aortic valvuloplasty and dense mitral annular calcification Dictated by: Lara Damon M.D. on 11/04/2024 at 16:02 Approved by: Lara Damon M.D. on 11/04/2024 at 16:20
== END ==
LOC: CT 14:57
PROVIDERS: Family Provider Family Medicine; PCP Family Medicine; Referring Provider Internal Medicine; Visit Provider Internal Medicine
DX: J98.4 Other disorders of lung (principal); R91.8 Other nonspecific abnormal finding of lung field; I34.81 Nonrheumatic mitral (valve) annulus calcification; I51.7 Cardiomegaly; I70.0 Atherosclerosis of aorta; I25.10 Atherosclerotic heart disease of native coronary artery without angina pectoris; Z95.0 Presence of cardiac pacemaker
CPT/HCPCS: 71250

== ENCOUNTER → 2024-11-13 15:30 | Outpatient (CLI) | payer MEDICARE, BC, SELFPAY ==
[2024-07-15 11:15] VITALS: BMI 32.1
--- NOTE | 2024-11-13 15:33 | DI.CT.S_ITS ---
PROCEDURE: CT THORACIC SPINE WO CON INDICATIONS: SPINAL STENOSIS,LUMBAR,SCOLISOSIS,STENOSIS-THORACI TECHNIQUE: Noncontrast 3 mm thick sections acquired through the region of interest in the thoracic spine. Sagittal and coronal reformats were then constructed. For radiation dose reduction, the following was used: automated exposure control. COMPARISON: None. FINDINGS: Image quality: Excellent. Bones: Diffuse osseous demineralization. Mild dextrocurvature of the midthoracic spine. Otherwise, the thoracic kyphosis is preserved. The vertebral body heights are preserved. Mild multilevel flowing ossification of the anterior longitudinal ligament (5/34). Multilevel intervertebral disc height loss with endplate sclerosis and Schmorl's nodes at the T12-L2 levels. No severe foraminal narrowing. No severe central canal stenosis at the thoracic levels. Soft tissues: No paravertebral masses or hematomas. Visualized posteromedial lungs appear clear. Please see the same-day CT lumbar spine without contrast examination for details regarding other soft tissue findings. IMPRESSION: 1. No acute CT abnormality of the thoracic spine. 2. 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 3. Please see the same-day CT lumbar spine without contrast examination for details regarding the other soft tissue findings. Dictated by: Edison Hall M.D. on 11/13/2024 at 17:29 Approved by: Edison Hall M.D. on 11/13/2024 at 17:32
--- NOTE | 2024-11-13 15:34 | DI.CT.S_ITS ---
PROCEDURE: CT LUMBAR SPINE WO CON INDICATIONS: SPINAL STENOSIS,LUMBAR,SCOLISOSIS,STENOSIS-THORACI TECHNIQUE: Noncontrast 3 mm thick sections acquired from the T12 level to the sacrum. Sagittal and coronal reformats were constructed. For radiation dose reduction, the following was used: automated exposure control. COMPARISON: [facility], MR, MR LUMBAR SPINE WITHOUT CONTRAST, 10/07/2024, 12:28. FINDINGS: Image quality: Excellent. Bones: Diffuse osseous demineralization. Five non rib-bearing lumbar vertebrae are present. The vertebral body heights are preserved. Multilevel endplate sclerosis with Schmorl's nodes (02/20). Multilevel hypertrophy of the spinous processes with moderate-severe multilevel facet arthropathy (02/16-). Alignment: Exaggerated lumbar lordosis with grade 1 anterolisthesis of L4 on L5. Discs: Multilevel intervertebral disc height loss with vacuum disc phenomenon. Central canal: Although the epidural space is not well assessed on CT, there is moderate central canal stenosis at L2-L3 and L3-L4, and severe central canal stenosis at L4-L5 (4/49).. Neural foramina: Multilevel foraminal stenosis, moderate at the right L3-L4, right L4-L5, and left L3-L4 levels; severe at the left L4-L5 level. Prevertebral soft tissues: Mosaic attenuation of the bilateral lung parenchyma, which can be seen with transient air trapping. Left-sided pacemaker with the leads terminating in the right atrium right ventricle. Moderate-severe aortoiliac atherosclerosis. Extensive colonic diverticulosis. Cardiomegaly with left atrial enlargement. Dilated main pulmonary arterial trunk up to 4 cm (2/190). Aortic valve stent graft. Severe mitral annulus calcifications. IMPRESSION: 1. Multilevel moderate-severe central canal stenosis, most conspicuous at L4-L5. 2. Multilevel foraminal stenosis, severe at the left L4-L5 level. 3. Multilevel hypertrophy of the spinous processes with facet arthropathy, which can be seen with Baastrup's disease. 4. Dilated main pulmonary arterial trunk diameter, suggestive of pulmonary arterial hypertension. 5. Other chronic findings noted above. Dictated by: Edison Hall M.D. on 11/13/2024 at 17:13 Approved by: Edison Hall M.D. on 11/13/2024 at 17:28
== END ==
PROVIDERS: Family Provider Family Medicine; PCP Family Medicine; Referring Provider Family Medicine; Visit Provider Orthopaedic Surgery Orthopaedic Surgery of the Spine
DX: M48.062 Spinal stenosis, lumbar region with neurogenic claudication (principal); M43.16 Spondylolisthesis, lumbar region; M47.816 Spondylosis without myelopathy or radiculopathy, lumbar region; M41.9 Scoliosis, unspecified; I51.7 Cardiomegaly; I34.81 Nonrheumatic mitral (valve) annulus calcification; K57.30 Diverticulosis of large intestine without perforation or abscess without bleeding; I70.0 Atherosclerosis of aorta; Z95.828 Presence of other vascular implants and grafts; Z95.0 Presence of cardiac pacemaker
CPT/HCPCS: 72128; 72131

== ENCOUNTER → 2025-01-15 11:30 | Outpatient (CLI) | payer MEDICARE, BC, SELFPAY ==
[2024-07-15 11:15] VITALS: BMI 32.1
--- NOTE | 2025-01-15 11:32 | DI.CT.S_ITS ---
PROCEDURE: CT LUMBAR SPINE WO CON INDICATIONS: spinal stenosis TECHNIQUE: Noncontrast 3 mm thick sections acquired from the T12 level to the sacrum. Sagittal and coronal reformats were constructed. For radiation dose reduction, the following was used: automated exposure control. COMPARISON: [facility], CT, CT LUMBAR SPINE WO CON, 11/13/2024, 15:39. FINDINGS: Image quality: Excellent. Bones: There is [id number] levoscoliosis of lumbar spine with apex at L2 level unchanged from prior study. There is 8 mm retrolisthesis of L4 on L5 and 2 mm retrolisthesis of T12 on L1 and L1 and L2 also unchanged from prior study. No acute vertebral body compression fractures. No suspicious lytic or blastic bony lesions. Hypertrophy of spinous processes throughout lumbar spine unchanged from previous study. No pars defects. T12-L1: Loss of disc height and degenerative endplate changes. Bilateral facet arthrosis is seen . No significant central canal stenosis or neural foraminal narrowing. L1-L2: Loss of disc height and degenerative endplate changes are seen. Broad-based disc bulge and bilateral facet arthrosis with mild central canal stenosis and moderate bilateral neural foraminal narrowing. L2-L3: Loss of disc height and degenerative endplate changes are seen. Broad-based disc bulge and bilateral facet arthrosis with moderate central canal stenosis and moderate to severe bilateral neural foraminal narrowing. L3-L4: Loss of disc height and degenerative endplate changes are seen. Broad-based disc bulge and bilateral facet arthrosis with suggestion of hypertrophy of ligamentum flavum causing moderate to severe central canal stenosis and bilateral neural foraminal narrowing. L4-L5: Loss of disc height and degenerative endplate changes are seen. Broad-based disc bulge and bilateral facet arthrosis with severe central canal stenosis and bilateral neural foraminal narrowing. L5-S1: Loss of disc height and degenerative endplate changes. Diffuse disc bulge and bilateral facet arthrosis with moderate central canal stenosis and severe left worse than right bilateral neural foraminal narrowing. Soft tissues: No retroperitoneal masses or hematomas. Visualized aorta is normal in caliber. Moderate atherosclerotic calcifications in abdominal aorta is seen. IMPRESSION: 1. Xchf-wf-psbsyjmw levoscoliosis of lumbar spine and grade 1 spondylolisthesis at T12-L1, L1-2 and L4-5 levels unchanged from prior study. No acute vertebral body compression fracture. No suspicious bony lesions. 2. Multilevel spondylitic changes throughout lumbar spine causing various degrees of central canal stenosis and bilateral neural foraminal narrowing not significantly changed from previous study. 3. No gross paraspinous soft tissue abnormalities. Dictated by: Morales Law M.D. on 01/17/2025 at 1:07 Approved by: Morales Law M.D. on 01/17/2025 at 1:24
--- NOTE | 2025-01-15 11:32 | DI.CT.S_ITS ---
PROCEDURE: CT THORACIC SPINE WO CON INDICATIONS: spinal stenosis TECHNIQUE: Noncontrast 3 mm thick sections acquired through the region of interest in the thoracic spine. Sagittal and coronal reformats were then constructed. For radiation dose reduction, the following was used: automated exposure control. COMPARISON: [facility], CT, CT THORACIC SPINE WO CON, 11/13/2024, 15:39. FINDINGS: Image quality: Excellent. Bones: There is very mild rightward curvature of thoracic spine with apex at T6-7 level.. No acute vertebral body compression fractures. No suspicious sclerotic or lytic bony lesions. There is loss of disc height, in degenerative endplate changes throughout thoracic spine more notably in mid to lower thoracic spine. No significant central canal stenosis or neural foraminal narrowing is seen. Soft tissues: No paravertebral masses or hematomas. Visualized posteromedial lungs appear clear. Cardiomegaly with prosthetic heart valve and pacemaker leads are seen. IMPRESSION: 1. No acute vertebral body compression fracture or spondylolisthesis. Very mild rightward curvature of thoracic spine as above. 2. Ogtm-na-skvrowmm degenerative disc disease throughout thoracic spine. No significant central canal stenosis or neural foraminal narrowing. 3. Subtle flowing anterior bridging osteophyte formation in lower thoracic spine concerning for diffuse idiopathic skeletal hyperostosis, unchanged from previous study. Dictated by: Morales Law M.D. on 01/17/2025 at 0:38 Approved by: Morales Law M.D. on 01/17/2025 at 0:58
--- NOTE | 2025-01-15 11:33 | DI.CT.S_ITS ---
PROCEDURE: CT PEL WO CON INDICATIONS: spinal stenosis TECHNIQUE: Noncontrast 3 mm axial sections acquired through the bony pelvis, with coronal and sagittal reformatting. COMPARISON: [facility], CR, XR LUMBAR SPINE WITH FLEXION EXTENSION 5 VIEWS, 11/05/2024, 13:25. [facility], CT, CT LUMBAR SPINE WO CON, 11/13/2024, 15:39. FINDINGS: Image quality: Excellent. Bones: Patient is status post prior left total hip arthroplasty. Left hip prosthesis are in their expected positions. No evidence of hardware loosening or failure. No acute pelvic or hip fracture. No hip dislocation. Moderate to severe osteoarthritic changes are noted in bilateral sacroiliac joints with significant joint space narrowing and extensive subchondral sclerosis concerning for bilateral sacroiliitis. No ankylosis or definite bony erosion is seen. Subtle erosion in bilateral iliac bone adjacent to sacroiliac joint cannot be excluded. There is no sacral insufficiency fracture. Moderate right hip joint osteoarthritic changes are seen. Osteoarthritic changes also noted in symphysis pubis. No evidence of avascular necrosis of femoral head. No suspicious bony lesions. Degenerative disc disease in visualized lower lumbar spine is seen. Soft tissues: There is no pelvic free fluid or free air. Bilateral kidneys show no obstructing stones or hydronephrosis. Extensive colonic diverticulosis without CT evidence of acute diverticulitis. No abscess collection. No free fluid or free air. Bladder wall thickness is normal. No pelvic lymphadenopathy by size criteria. There is no significant hip joint effusion or calcified intra-articular loose bodies. No soft tissue mass or drainable fluid collection. IMPRESSION: 1. Prior left total hip arthroplasty. Anatomic left hip alignment. No gross hardware loosening or failure. No periprosthetic fracture. 2. Pelvic ring is intact. No acute pelvic fracture or dislocation. Right hip joint osteoarthritis without CT evidence of avascular necrosis. Bilateral sacroiliac joint osteoarthritis osteoarthritis and suggestion of sacroiliitis. Possible subtle erosion involving bilateral iliac bones adjacent to sacroiliac joints. No ankylosis. 3. No gross pelvic soft tissue abnormalities. Dictated by: Morales Law M.D. on 01/17/2025 at 1:02 Approved by: Morales Law M.D. on 01/17/2025 at 1:06
== END ==
PROVIDERS: Family Provider Family Medicine; PCP Family Medicine; Referring Provider Orthopaedic Surgery Orthopaedic Surgery of the Spine; Visit Provider Orthopaedic Surgery Orthopaedic Surgery of the Spine
DX: M51.34 Other intervertebral disc degeneration, thoracic region (principal); M43.16 Spondylolisthesis, lumbar region; M48.061 Spinal stenosis, lumbar region without neurogenic claudication; M47.816 Spondylosis without myelopathy or radiculopathy, lumbar region; M46.1 Sacroiliitis, not elsewhere classified; M16.11 Unilateral primary osteoarthritis, right hip; K57.30 Diverticulosis of large intestine without perforation or abscess without bleeding; I51.7 Cardiomegaly; M41.9 Scoliosis, unspecified; Z95.2 Presence of prosthetic heart valve; Z95.0 Presence of cardiac pacemaker; Z96.642 Presence of left artificial hip joint
CPT/HCPCS: 72128; 72131; 72192

== ENCOUNTER → 2025-01-22 12:23 | Outpatient (CLI) | payer MEDICARE, BC, SELFPAY ==
[2024-07-15 11:15] VITALS: BMI 32.1
--- NOTE | 2025-01-22 12:33 | DI.ECHO.S_ITS ---
[facility]+ [facility] : : [address] : : [place] : : [id number] : : Phone: [phone] Echocardiogram Report + + :Name: DONNA NUNES Study Date: 01/22/2025 Height: 62 in : :[facility] ReadingLocation: Weight: 163 lb : : Gender: Female BSA: 1.8 m2 : :: 1940 Age: 84 yrs BP: 114/64 mmHg: :Reason For Study: S/P TAVR : :Ordering Physician: GABY, : :CRISTIAN Melchor Performed By: Tashia Rivera : :Referring: CRISTIAN GRIFFIN : + + Interpretation Summary The left ventricle is normal in size and wall thickness. The left ventricular ejection fraction is normal. The ejection fraction is estimated to be 60-65%. At least pseudonormalization type of diastolic dysfunction. The right ventricle is normal in size and function. There is a pacemaker lead in the right ventricle. The left atrium is severely dilated. The left atrium has mildly increased in size since the prior echo exam. Severe mitral annulus calcification with heavy calcification of posterior mitral annulus, extending into the subvalvular chordae. Posterior mitral annulus calcification is distorting the normal morphology. Restriction of posterior mitral leaflet. The mean gradient across mitral valve about 4.2 mmHg suggestive of mild mitral stenosis. Moderate to severe mitral regurgitation. Previously mild mitral regurgitation. There is a bioprosthetic aortic valve. The peak aortic velocity is 1.6 m/sec. The aortic valve mean gradient is 6 mmHg. The peak aortic velocity on the previous exam was 1.79 m/sec. There is mild to moderate tricuspid regurgitation. Compared to the prior echo exam, there has been an increase in TR severity. The right ventricular systolic pressure is estimated to be at least 40 mmHg based on an estimated right atrial pressure of 3 mm Hg. Previously 40 mmHg as well. There is mild luminal irregularity and echogenicity in the abdominal aorta, suggestive of aortic atherosclerotic disease. Procedure: A two-dimensional transthoracic echocardiogram with color flow and Doppler was performed. The study quality was technically adequate. Comparison is made with the echocardiogram of 09/13/2022. The patient was in sinus bradycardia with heart rates between 58-62 bpm during the exam. Left Ventricle: The left ventricle is normal in size and wall thickness. There is no thrombus. The ejection fraction is estimated to be 60-65%. The left ventricular ejection fraction is normal. There are no focal wall motion abnormalities. Diastolic parameters suggest probable elevated filling pressures. At least pseudonormalization type of diastolic dysfunction. Right Ventricle: The right ventricle is normal in size and function. There is a pacemaker lead in the right ventricle. Atria: The left atrium is severely dilated. The left atrium has mildly increased in size since the prior echo exam. The right atrium is mildly dilated. There is no Doppler evidence for an interatrial shunt. Mitral Valve: The mitral valve leaflets are heavily calcified. There is severe mitral annular calcification. Severe mitral annulus calcification with heavy calcification of posterior mitral annulus, extending into the subvalvular chordae. Posterior mitral annulus calcification is distorting the normal morphology. Restriction of posterior mitral leaflet. The mean gradient across mitral valve about 4.2 mmHg suggestive of mild mitral stenosis. Moderate to severe mitral regurgitation. Previously mild mitral regurgitation. The anterior leaflet is pliable and mobile while the posterior leaflet is calcified and immobile. The mitral valve mean gradient is 4.2 mmHg. There is moderate to severe mitral regurgitation. Aortic Valve: The aortic valve opens well. There is a bioprosthetic aortic valve. The prosthetic aortic valve is well-seated. Bioprosthetic leaflets are thin and move normally. The peak aortic velocity is 1.6 m/sec. The aortic valve mean gradient is 6 mmHg. The calculated aortic valve area is 1.9 cm2. The peak aortic velocity on the previous exam was 1.79 m/sec. There is trace aortic regurgitation. Tricuspid Valve: The tricuspid valve is normal. There is mild to moderate tricuspid regurgitation. The right ventricular systolic pressure is estimated to be at least 40 mmHg based on an estimated right atrial pressure of 3 mm Hg. Compared to the prior echo exam, there has been an increase in TR severity. Pulmonic Valve: The pulmonic valve is not well seen, but is grossly normal. There is mild pulmonic regurgitation. Great Vessels: The aortic root is normal size. The dimensions of the ascending aorta are normal. There is mild luminal irregularity and echogenicity in the abdominal aorta, suggestive of aortic atherosclerotic disease. The IVC is of normal diameter and collapses greater than 50% with a sniff. This suggests a low right atrial pressure of 3 mm Hg. Pericardium/ Pleura There is no pericardial effusion. There is no pleural effusion. MMode/2D Measurements & Calculations LVIDd: 4.5 cm LVOT diam: 2.1 cm LVIDs: 2.8 cm asc Aorta Diam: 3.2 cm FS: 38.1 % Ao Arch Diam (Prox Trans): 2.4 cm IVSd: 0.97 cm LVPWd: 0.74 cm LV soria. diameter/BSA (cm/m^2): 2.6 LV sys. diameter/BSA (cm/m^2): 1.6 LA A2 area: 35.4 cm2 RA long axis: 5.7 cm LA A4 area: 31.3 cm2 RA area: 20.0 cm2 LA length (vol): 7.0 cm RA vol: 59.6 ml LA vol: 134.8 ml RA : 34.0 ml/m2 LA vol index: 76.9 ml/m2 IVC diam: 1.0 cm RVD1 (basal): 3.3 cm RVD2 (mid): 2.8 cm TAPSE: 2.4 cm Doppler Measurements & Calculations Ao V2 max: 157.8 cm/sec LVOT Max Christian: 81.8 cm/sec Ao V2 mean: 111.2 cm/sec LV V1 max P.7 mmHg Ao max P.6 mmHg LV V1 VTI: 20.7 cm Ao mean P.6 mmHg BERTHA(I,D): 1.9 cm2 Ao V2 VTI: 39.6 cm BERTHA(V,D): 1.9 cm2 sev ratio: 0.52 BERTHA indexed to BSA (cm^2/m^2): 1.1 MV E max christian: 177.4 cm/sec TR max christian: 304.1 cm/sec MV A max christian: 58.8 cm/sec TR max P.0 mmHg MV E/A: 3.0 PA V2 max: 78.1 cm/sec Med Peak E' Christian: 5.9 cm/sec PA V2 mean: 55.3 cm/sec E/E' med: 29.9 PA mean P.4 mmHg Lat Peak E' Christian: 7.4 cm/sec PA pr(Accel): 25.1 mmHg E/E' lat: 23.8 E/e' average: 26.9 MV dec time: 0.27 sec MVA(VTI): 1.5 cm2 MV V2 mean: 87.2 cm/sec SV(LVOT): 74.7 ml MV mean P.2 mmHg MV V2 VTI: 50.1 cm Reading Physician:11:14 AM
[2025-01-22 13:41] LABS: Alanine Aminotransferase 22 IU/L (<35); Albumin 4.4 g/dL (3.5-5.0); Albumin Globulin Ratio 1.7 (1.0-2.8); Alkaline Phosphatase 47 U/L (38-126); Aspartate Aminotransferase 34 IU/L (14-36); Bilirubin Total 0.6 mg/dL (0.2-1.3); Bilirubin Unconjugated 0.2 mg/dL (0.0-1.1); Globulin 2.6 g/dL (1.7-4.1); HEMOLYSIS < 15 (0-50)
[2025-01-22 14:54] LABS: Thyroid Stimulating Hormone 1.27 uIU/mL (0.47-4.68)
== END ==
PROVIDERS: Internal Medicine Cardiovascular Disease; Family Provider Family Medicine; PCP Internal Medicine; Referring Provider Nurse Practitioner; Visit Provider Nurse Practitioner
DX: Z79.899 Other long term (current) drug therapy (principal); Z95.2 Presence of prosthetic heart valve; Z95.0 Presence of cardiac pacemaker; I51.7 Cardiomegaly; I34.81 Nonrheumatic mitral (valve) annulus calcification; I34.0 Nonrheumatic mitral (valve) insufficiency; I07.1 Rheumatic tricuspid insufficiency
CPT/HCPCS: 36415; 80076; 84443; 93306

== ENCOUNTER 2025-08-12 15:43 | Emergency (ER) | payer MEDICARE, BC, SELFPAY ==
[2024-07-15 11:15] VITALS: BMI 32.1
[2025-08-12] VITALS (47 sets, daily range): BP systolic 98–132; BP diastolic 51–69; PULSE 60–120; RESP 15–42; TEMP 36.5; O2SAT 93–100; BMI 25.6
--- OUTSIDE RECORDS SUMMARY | 2025-08-12 15:46 | XMS_ITS | Encounter Summary ---
Author Organization [facility] Address [address] [place] [address] Care Team Providers Care Roving Department Supervisor Name Role Phone Soha Resendiz MD Primary Care Provider [phone] Encounter Details Date Type Department Care Team (Late st Contact Info) Description 10/20/2020 Orders Only [facility] Nephrology [address], [address] [place] [address] Henry Corbin MD [address] [place] [id number] Stage 3 chronic kidney disease, unspecified whether stage 3a or 3b CKD Social History Tobacco Use Types Packs/Day Years Used Date Smoking Tobacco: Former Cigarettes 1982 Smokeless Tobacco: Never Alcohol Use Standard Drinks/Week Comments Not Currently 0 (1 standard drink = 0.6 oz pur e alcohol) none in years Humiliation, Afraid, Rape, and Kick questionnair e Answer Date Recorded Within the last year, have y ou been afraid of your partner or ex-partner? No 09/13/2020 Within the last year, have y ou been humiliated or emotionally abused in other ways by your partner or ex-partner? No Within the last year, have y ou been kicked, hit, slapped, or otherwise physically hurt by your partner or ex-partner? No 09/13/2020 Within the last year, have y ou been raped or forced to have any kind of sexual activity by your partner or ex-partner? No 09/13/2020 Social Connection and Isolation Panel Answer Date Recorded In a typical week, how many times do you talk on the phone with family, friends, or neighbors? More than three times a week 09/13/2020 How often do you get togethe r with friends or relatives? Never 09/13/2020 How often do you attend chur ch or alevism services? Never 09/13/2020 Do you belong to any clubs o r organizations such as mormon groups, unions, fraternal or athletic groups, or school groups? No 09/13/2020 How often do you attend meet ings of the clubs or organizations you belong to? Never 09/13/2020 Are you , , di vorced, , never , or living with a partner? 09/13/2020 AUDIT-C Answer Date Recorded Q1: How often do you have a drink containing alc ohol? Never 09/13/2020 Average Number of Drinks Not on file 021 Q3: How often do you have si x or more drinks on one occasion? Never 09/13/2020 Overall Financial Resource Strain (CARDIA) Answe r Date Recorded How hard is it for you to pa y for the very basics like food, housing, medical care, and heating? Not hard at all 09/13/2020 [facility] [place] [facility] - Occupational Stress Questionnaire Answer Date Recorded Do you feel stress - tense, restless, nervous, or anxious, or unable to sleep at night because your mind is troubled all the time - these days? Only a little 09/13/2020 Exercise Vital Sign Answer Date Recorde d On average, how many days pe r week do you engage in moderate to strenuous exercise (like a brisk walk)? 0 days 09/13/2020 On average, how many minutes do you engage in exercise at this level? 0 min 09/13/2020 Hunger Vital Sign Answer Date Recorded Within the past 12 months, y ou worried that your food would run out before you got the money to buy more. Never true 09/13/19 21 Within the past 12 months, t he food you bought just didn't last and you didn't have money to get more. Never true 09/13/2020 PRAPARE - Transportation Answer Date Re corded In the past 12 months, has l ack of transportation kept you from medical appointments or from getting medications? No 08/26 In the past 12 months, has l ack of transportation kept you from meetings, work, or from getting things needed for daily living? No 09/13/2020 Comments No Sex and Gender Information Value Date Recorded Sex Assigned at Female 02/19/2023 12:24 AM PDT Legal Sex Female 7:17 PM PDT Gender Identity Female 02/19/2023 12:24 AM PDT Sexual Orientation Straight 02/19/2023 12 :24 AM PDT Occupation Industry Job Start Date Job End Date retired pharmacy grad intern Not on file Not on file Not on file documented as of this encounter Plan of Treatment Upcoming Encounters Date Type Department Care Team (Late st Contact Info) Description 09/09/2025 8:[address] [facility] [address] [place] [phone] Jeff Sheffield, DO [address] [phone] 09/09/2025 9:[address] [facility] [address] [place] [address] Jeff Sheffield, DO [address] [phone] 09/17/2025 3:00 PM PST Office Visit [facility] [place] [address] [place], [place] [id number] Susie Issa MD [address] [place] [address] Scheduled Procedures Name Priority Associated Diagnoses Date/Ti me ARTHRODESIS OF SINGLE LUMBAR VERTEBRAL INTERSPACE BY POSTERIOR INTERBODY TECHNIQUE WITH LAMINECTOMY AND DISCECTOMY Spinal stenosis of lumbar region with neurogenic claudication Spondylolisthesis of lumbar region Scoliosis of lumbar spine, unspecified scoliosis type POSTERIOR NON-SEGMENTAL INSTRUMENTATION OF VERTEBRA BY SUBLAMINAR WIRING AT C1 Spinal stenosis of lumbar region with neurogenic claudication Spondylolisthesis of lumbar region Scoliosis of lumbar spine, unspecified scoliosis type PLACEMENT OF OSTEOPROMOTIVE MATERIAL FOR SPINAL SURGERY Spinal stenosis of lumbar region with neurogenic claudication Spondylolisthesis of lumbar region Scoliosis of lumbar spine, unspecified scoliosis type LOCAL AUTOGRAFT OF BONE TO SPINE Spinal stenosis of lumbar region with neurogenic claudication Spondylolisthesis of lumbar region Scoliosis of lumbar spine, unspecified scoliosis type Laminectomy, Facetectomy or Foraminotomy, Unilateral or Bilateral with Decompression of Spinal Cord, Cauda Equina and/or Nerve Roots Spinal stenosis of lumbar region with neurogenic claudication Spondylolisthesis of lumbar region Scoliosis of lumbar spine, unspecified scoliosis type INSERTION OF INTERBODY BIOMECHANICAL DEVICE(S) WITH INTEGRAL ANTERIOR INSTRUMENTATION FOR DEVICE ANCHORING, WHEN PERFORMED TO INTERVERTEBRAL DISC SPACE IN CONJUCTION WITH INTERBODY ATHRODESIS,EA INTER Spinal stenosis of lumbar region with neurogenic claudication Spondylolisthesis of lumbar region Scoliosis of lumbar spine, unspecified scoliosis type UNILATERAL LAMINECTOMY, FACETECTOMY, AND FORAMINOTOMY OF SINGLE VERTEBRA OF LUMBAR SPINE WITH DECOMPRESSION OF SPINAL CORD AND NERVE ROOT Spinal stenosis of lumbar region with neurogenic claudication Spondylolisthesis of lumbar region Scoliosis of lumbar spine, unspecified scoliosis type documented as of this encounter Procedures Procedure Name Priority Date/Time Associated Diagnosis Comments COMPLETE BLOOD COUNT Routine 10/11/2020 Stage 3 chronic kidney disease, unspecified whether stage 3a or 3b CKD RENAL FUNCTION PANEL Routine 10/11/2020 Stage 3 chronic kidney disease, unspecified whether stage 3a or 3b CKD documented in this encounter Results * Renal function panel (10/11/2020) Blood Venous blood / Unknown Henry Corbin MD LAB BLOOD ORDERABLES Final Re sult * Complete blood count (10/11/2020) Blood Venous blood / Unknown Henry Corbin MD LAB BLOOD ORDERABLES Final Re sult documented in this encounter Visit Diagnoses Diagnosis Stage 3 chronic kidney disease, unspecified whether stage 3a or 3b CKD (CMS/HCC) documented in this encounter Additional Health Concerns Infection Onset Date Last Indicated Resolved Time R/O Gastroenteritis 02/17/2025 02/17/2025 02/18/20 5:30 PM PDT documented as of this encounter Care Teams Roving Department Supervisor Relationship Specialty Start Date End Date Soha Resendiz MD [address] [place] [address] [address] [place] [id number] PCP - General Family Medicine 12/25/24 documented as of this encounter
--- NOTE | 2025-08-12 15:59 | DI.RAD.S_ITS ---
PROCEDURE: XR CHEST 1V INDICATIONS: Chest Pain TECHNIQUE: One view of the chest was acquired. COMPARISON: None. FINDINGS: Surgical changes and devices: Aortic valve replacement. 2 lead cardiac pacemaker. Thoracolumbar spinal fusion, partially imaged. Lungs and pleura: Lungs are clear. No pleural effusions or pneumothorax. Mediastinum: Mediastinal contours appear normal. Heart size is normal. Bones and chest wall: Severe degenerative changes of the bilateral shoulders. IMPRESSION: No acute cardiopulmonary abnormality is seen. Dictated by: Joss Bright M.D. on 08/12/2025 at 16:55 Approved by: Joss Bright M.D. on 08/12/2025 at 16:56
--- NOTE | 2025-08-12 16:09 | EKG_ITS ---
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
[2025-08-12 16:36] LABS: Add Manual Diff / Slide Review NO; Hematocrit 33.6 % (36-46); Hemoglobin 11.1 g/dL (12.0-16.0); INR 2.0 (0.9-1.3); Lymphocytes Absolute Auto 1400 /uL (1100-4500); Mean Corpuscular HGB Conc 32.9 % (30-36); Mean Corpuscular Hemoglobin 28.9 PG (26-34); Mean Corpuscular Volume 87.7 fL (80-100); Platelet Count 321 X10^3/uL (150-400); Prothrombin Time 22.3 SECONDS (9.4-12.5)
[2025-08-12 16:38] LABS: PTT Partial Thromboplastin Tim 32 SECONDS (25.1-36.5)
[2025-08-12 16:40] LABS: Alanine Aminotransferase 14 IU/L (<35); Albumin 3.9 g/dL (3.5-5.0); Albumin Globulin Ratio 1.3 (1.0-2.8); Alkaline Phosphatase 60 U/L (38-126); Blood Urea Nitrogen 48 mg/dL (7-17); Calcium 9.1 mg/dL (8.4-10.2); Carbon Dioxide 29 mmol/L (22-32); Chloride 99 mmol/L (98-107); Creatine Kinase < 20 U/L (30-135); Estimated Glomerular Filt Rate 33 mL/min (>60); Globulin 3.0 g/dL (1.7-4.1); Glucose 100 mg/dL (70-99); HEMOLYSIS < 15 (0-50); Lipase 209 U/L (23-300); Magnesium 2.0 mg/dL (1.6-2.3); Potassium 3.5 mmol/L (3.4-5.1); Sodium 135 mmol/L (137-145); Total Protein 6.9 g/dL (6.3-8.2)
--- NOTE | 2025-08-12 16:46 | ED.ARRPALP ---
HPI - Arrhythmia/Palpitations <Shanda Juares, DO - Last Filed: 08/12/25 19:24> General Chief Complaint: Arrhythmia/Palpitations Stated Complaint: Cardioversion. Dr Pearce called Time Seen by Provider: 08/12/25 15:46 Source: patient Mode of arrival: Family Vehicle History of Present Illness HPI narrative: Patient is a 89-year-old female history of atrial fibrillation on anticoagulation with pacemaker presenting today in AFib. She reports that yesterday she felt extremely weak dizzy lightheaded did not feel quite right. She knows that her heart rate was quite erratic which is abnormal for her. Her watch does tell her how fast it is however she also checks her blood pressure daily and realized that it was not it is normal 60. She talked to her radiologist Dr. Swanson while the recommended she come in for cardioversion. Related Data Home Medications ?Medication ?Instructions ?Recorded ?Confirmed ascorbic acid (vitamin C) 1,000 mg 1 gram PO BID 07/20/19 10/07/24 tablet cyanocobalamin (vitamin B-12) 500 500 mcg PO DAILY 07/20/19 10/07/24 mcg tablet levothyroxine 137 mcg tablet 137 mcg PO DAILY 07/20/19 10/07/24 multivitamin 1 tab PO DAILY 07/20/19 10/07/24 methocarbamol 500 mg tablet 500 mg PO QID PRN Spasms 12/29/19 10/07/24 losartan 50 mg tablet 50 mg PO DAILY 01/28/20 10/07/24 coenzyme Q10 100 mg capsule (Co 100 mg PO DAILY 05/05/21 10/07/24 Q-10) amiodarone 200 mg tablet 200 mg PO DAILY 10/30/23 10/07/24 apixaban 5 mg tablet (Eliquis) 5 mg PO BID 10/30/23 10/07/24 atorvastatin 40 mg tablet 40 mg PO DAILY 10/30/23 10/07/24 timolol maleate (PF) 0.5 % eye 1 drp EYE-BOTH DAILY 10/30/23 10/07/24 drops in a dropperette amlodipine 5 mg tablet 5 mg PO DAILY 02/05/24 10/07/24 latanoprost 0.005 % eye drops 1 drp EYE-BOTH ONCE PM 02/05/24 10/07/24 chlorthalidone 25 mg tablet 12.5 mg PO DAILY 03/30/24 10/07/24 amiodarone 100 mg tablet 100 mg PO DAILY 10/07/24 10/07/24 Previous Rx's ?Medication ?Instructions ?Recorded gabapentin 100 mg capsule 100 mg PO DAILY #90 caps 02/20/24 Allergies Allergy/AdvReac Type Severity Reaction Status Date / Time morphine AdvReac Intermediate VOMITING Verified 08/12/25 15:54 tramadol AdvReac Intermediate SEDATED PT Verified 08/12/25 15:54 TO MUCH latex AdvReac contact Verified 08/12/25 15:54 dermatitis Patient History <Shanda Juares DO - Last Filed: 08/12/25 19:24> Medical History Chronic renal failure, stage 3 (moderate) Facet arthropathy, lumbosacral Glaucoma Hyperlipidemia Hypertension Hypothyroidism Levoscoliosis Lumbosacral spondylosis Spondylolisthesis at L4-L5 level Thoracic radiculopathy Surgical History Aortic valve replaced History of hip replacement, total History of knee joint replacement S/P TAVR (transcatheter aortic valve replacement) Family History Father Heart disease Cancer Mother Heart disease Arthritis Thyroid disease Social History marital status: household members: spouse Smoking Status: Former smoker alcohol intake: never Smoking Status: Former smoker tobacco type: cigarettes Exam <Shanda Juares DO - Last Filed: 08/12/25 19:24> Initial Vital Signs Initial Vital Signs: Vital Signs Temperature 97.7 F 08/12/25 15:54 Pulse Rate 104 H 08/12/25 15:54 Respiratory Rate 22 08/12/25 15:54 Blood Pressure 100/59 L 08/12/25 15:54 Pulse Oximetry 99 08/12/25 15:54 Oxygen Delivery Method Room Air 08/12/25 15:54 GENERAL: Alert 85-year-old female and in no acute distress. HEENT: Head atraumatic,EOMI, pupils reactive, face symmetric, moist mucous membranes CARDIOVASCULAR: Irregularly irregular RESPIRATORY: Breath sounds equal bilaterally, no wheezes rales or rhonchi. ABDOMEN: Soft, nontender. Normoactive bowel sounds all 4 quadrants. No guarding or rebound. EXTREMITIES: Normal range of motion, no clubbing or edema. Neurovascularly intact NEUROLOGICAL: Alert and oriented x4.Normal gait and speech. Cranial nerves II through XII grossly intact. SKIN: Warm, dry, no laceration, no petechiae, no rashes or lesions. <Angel Carlson, DO - Last Filed: 08/12/25 20:03> Initial Vital Signs Initial Vital Signs: Vital Signs Temperature 97.7 F 08/12/25 15:54 Pulse Rate 104 H 08/12/25 15:54 Respiratory Rate 22 08/12/25 15:54 Blood Pressure 100/59 L 08/12/25 15:54 Pulse Oximetry 99 08/12/25 15:54 Oxygen Delivery Method Room Air 08/12/25 15:54 Course <Shanda Juares, DO - Last Filed: 08/12/25 19:24> Orders Ordered: ED Orders 08/12/25 15:59 XR chest 1V Stat EKG-12 Lead Stat 08/12/25 16:15 Complete Blood Count AUTO DIFF Stat Comprehensive Metabolic Panel Stat Lipase Stat Magnesium Stat NT-proBNP (BNP-Adult 18+) Stat PTT Partial Thromboplastin Robb Stat Prothrombin Time INR Stat Troponin & CK Cardiac Panel Stat Discontinued Medications Aspirin (Aspirin 81 Mg Chew Tab) 324 mg PO NOW ONE Stop: 08/12/25 16:00 Propofol (Propofol 200 Mg/20 Ml Vial) 65 mg 1 mg/kg (65 mg) IV NOW ONE Stop: 08/12/25 17:25 Vital Signs Vital signs: Vital Signs - 8 hr 08/12/25 15:54 08/12/25 15:58 08/12/25 16:56 Temperature 97.7 F Pulse Rate 104 H 100 H Respiratory Rate 22 16 Blood Pressure 100/59 L Pulse Oximetry 99 95 Oxygen Delivery Method Room Air Room Air 08/12/25 16:57 08/12/25 16:57 08/12/25 17:00 Temperature Pulse Rate 86 Respiratory Rate 17 Blood Pressure 124/58 L 122/58 L Pulse Oximetry 94 Oxygen Delivery Method 08/12/25 17:00 Temperature Pulse Rate 91 H Respiratory Rate 21 Blood Pressure Pulse Oximetry 95 Oxygen Delivery Method <Angel Carlson, DO - Last Filed: 08/12/25 20:03> Orders Ordered: ED Orders 08/12/25 15:59 XR chest 1V Stat EKG-12 Lead Stat 08/12/25 16:15 Complete Blood Count AUTO DIFF Stat Comprehensive Metabolic Panel Stat Lipase Stat Magnesium Stat NT-proBNP (BNP-Adult 18+) Stat PTT Partial Thromboplastin Robb Stat Prothrombin Time INR Stat Troponin & CK Cardiac Panel Stat Discontinued Medications Aspirin (Aspirin 81 Mg Chew Tab) 324 mg PO NOW ONE Stop: 08/12/25 16:00 Propofol (Propofol 200 Mg/20 Ml Vial) 65 mg 1 mg/kg (65 mg) IV NOW ONE Stop: 08/12/25 17:25 Vital Signs Vital signs: Vital Signs - 8 hr 08/12/25 15:54 08/12/25 15:58 08/12/25 16:56 Temperature 97.7 F Pulse Rate 104 H 100 H Respiratory Rate 22 16 Blood Pressure 100/59 L Pulse Oximetry 99 95 Oxygen Delivery Method Room Air Room Air 08/12/25 16:57 08/12/25 16:57 08/12/25 17:00 Temperature Pulse Rate 86 Respiratory Rate 17 Blood Pressure 124/58 L 122/58 L Pulse Oximetry 94 Oxygen Delivery Method 08/12/25 17:00 Temperature Pulse Rate 91 H Respiratory Rate 21 Blood Pressure Pulse Oximetry 95 Oxygen Delivery Method MDM - Arrhythmia/Palpitations <Shanda Juares, DO - Last Filed: 08/12/25 19:24> Lab Data 08/12/25 16:15 08/12/25 16:15 Labs: Lab Results 08/12/25 Range/Units 16:15 WBC 10.2 (4.5-11.0) X10^3/uL RBC 3.83 L (4.0-5.2) X10^6/uL Hgb 11.1 L (12.0-16.0) g/dL Hct 33.6 L (36-46) % MCV 87.7 (80-100) fL MCH 28.9 (26-34) PG MCHC 32.9 (30-36) % RDW 17.3 H (11.6-14.8) % Plt Count 321 (150-400) X10^3/uL Neut % (Auto) 73.9 (50-75) % Lymph % (Auto) 14.0 L (25-40) % [place] % (Auto) 10.8 (3-14) % Eos % (Auto) 0.6 L (2-4) % Baso % (Auto) 0.7 (0-2) % Neut # (Auto) 7500 H (5638-3745) /uL Lymph # (Auto) 1400 (7923-0241) /uL [place] # (Auto) 1100 H (0-900) /uL Eos # (Auto) 100 (0-450) /uL Baso # (Auto) 100 (0-100) /uL PT 22.3 H (9.4-12.5) SECONDS INR 2.0 H (0.9-1.3) APTT 32 (25.1-36.5) SECONDS Sodium 135 L (137-145) mmol/L Potassium 3.5 (3.4-5.1) mmol/L Chloride 99 (98-107) mmol/L Carbon Dioxide 29 (22-32) mmol/L BUN 48 H (7-17) mg/dL Creatinine 1.56 H (0.52-1.04) mg/dL Estimated GFR 33 L (>60) mL/min BUN/Creatinine Ratio 30.8 H (6-22) Glucose 100 H (70-99) mg/dL Calcium 9.1 (8.4-10.2) mg/dL Magnesium 2.0 (1.6-2.3) mg/dL Total Bilirubin 0.4 (0.2-1.3) mg/dL AST 21 (14-36) IU/L ALT 14 (<35) IU/L Alkaline Phosphatase 60 (38-126) U/L Total Creatine Kinase < 20 L (30-135) U/L Troponin I 0.018 (0.01-0.034) ng/mL NT-Pro-B Natriuret Pep 6180 H (<450) pg/mL Total Protein 6.9 (6.3-8.2) g/dL Albumin 3.9 (3.5-5.0) g/dL Globulin 3.0 (1.7-4.1) g/dL Albumin/Globulin Ratio 1.3 (1.0-2.8) Lipase 209 (23-300) U/L Imaging Data Chest x-ray: Radiologist's Impresson: PROCEDURE: XR CHEST 1V INDICATIONS: Chest Pain TECHNIQUE: One view of the chest was acquired. COMPARISON: None. FINDINGS: Surgical changes and devices: Aortic valve replacement. 2 lead cardiac pacemaker. Thoracolumbar spinal fusion, partially imaged. Lungs and pleura: Lungs are clear. No pleural effusions or pneumothorax. Mediastinum: Mediastinal contours appear normal. Heart size is normal. Bones and chest wall: Severe degenerative changes of the bilateral shoulders. IMPRESSION: No acute cardiopulmonary abnormality is seen. Dictated by: Joss Bright M.D. on 08/12/2025 at 16:55 ECG Data Attestation: I personally reviewed and interpreted this ECG as follows: Prior ECG tracings: available for review Interpretation: Atrial fibrillation rate 91 right bundle-branch block noted rate control prior EKGs in 2019 MDM Narrative Medical decision making narrative: Patient 85-year-old female history of atrial fibrillation on anticoagulation is symptomatic. She has no contraindication to cardioversion and would like to be cardioverted. Records has been reviewed she actually had an echo 01/22/2025 which has a normal EF of 60-65% Blood work reviewed CBC within normal limit CMP no electrolyte abnormality creatinine slightly elevated 1.56 normal is 1.16 Troponin negative BNP elevated 6180 none prior Chest x-ray reviewed no acute cardiopulmonary process Patient does have an elevated BNP but no evidence of fluid overload at this time and had a normal echo 6 months ago. Patient signed out to Dr. Carlson for cardioversion and disposition <Angel Carlson, DO - Last Filed: 08/12/25 20:03> Lab Data Labs: Lab Results 08/12/25 Range/Units 16:15 WBC 10.2 (4.5-11.0) X10^3/uL RBC 3.83 L (4.0-5.2) X10^6/uL Hgb 11.1 L (12.0-16.0) g/dL Hct 33.6 L (36-46) % MCV 87.7 (80-100) fL MCH 28.9 (26-34) PG MCHC 32.9 (30-36) % RDW 17.3 H (11.6-14.8) % Plt Count 321 (150-400) X10^3/uL Neut % (Auto) 73.9 (50-75) % Lymph % (Auto) 14.0 L (25-40) % [place] % (Auto) 10.8 (3-14) % Eos % (Auto) 0.6 L (2-4) % Baso % (Auto) 0.7 (0-2) % Neut # (Auto) 7500 H (6957-3176) /uL Lymph # (Auto) 1400 (1171-8505) /uL [place] # (Auto) 1100 H (0-900) /uL Eos # (Auto) 100 (0-450) /uL Baso # (Auto) 100 (0-100) /uL PT 22.3 H (9.4-12.5) SECONDS INR 2.0 H (0.9-1.3) APTT 32 (25.1-36.5) SECONDS Sodium 135 L (137-145) mmol/L Potassium 3.5 (3.4-5.1) mmol/L Chloride 99 (98-107) mmol/L Carbon Dioxide 29 (22-32) mmol/L BUN 48 H (7-17) mg/dL Creatinine 1.56 H (0.52-1.04) mg/dL Estimated GFR 33 L (>60) mL/min BUN/Creatinine Ratio 30.8 H (6-22) Glucose 100 H (70-99) mg/dL Calcium 9.1 (8.4-10.2) mg/dL Magnesium 2.0 (1.6-2.3) mg/dL Total Bilirubin 0.4 (0.2-1.3) mg/dL AST 21 (14-36) IU/L ALT 14 (<35) IU/L Alkaline Phosphatase 60 (38-126) U/L Total Creatine Kinase < 20 L (30-135) U/L Troponin I 0.018 (0.01-0.034) ng/mL NT-Pro-B Natriuret Pep 6180 H (<450) pg/mL Total Protein 6.9 (6.3-8.2) g/dL Albumin 3.9 (3.5-5.0) g/dL Globulin 3.0 (1.7-4.1) g/dL Albumin/Globulin Ratio 1.3 (1.0-2.8) Lipase 209 (23-300) U/L ECG Data Interpretation: Atrial fibrillation rate 91 right bundle-branch block noted rate control prior EKGs in 2019 A-Paced HR 60PR [address] QRS [address]-t wave change MDM Narrative Medical decision making narrative: Patient 85-year-old female history of atrial fibrillation on anticoagulation is symptomatic. She has no contraindication to cardioversion and would like to be cardioverted. Records has been reviewed she actually had an echo 01/22/2025 which has a normal EF of 60-65% Blood work reviewed CBC within normal limit CMP no electrolyte abnormality creatinine slightly elevated 1.56 normal is 1.16 Troponin negative BNP elevated 6180 none prior Chest x-ray reviewed no acute cardiopulmonary process Patient does have an elevated BNP but no evidence of fluid overload at this time and had a normal echo 6 months ago. Patient signed out to Dr. Carlson for cardioversion and disposition Airway assessed prior to start of procedure? [Y/N] Procedural Sedation Time of Procedure: [2000] Consent Signed: [Y] ASA Class: [II] Mallampati Airway Classification: [II] Time Out Performed: [Y] Indication: [Afib] Preparation: [Telemetry, RT, RN, IV,] Bedside and IV Secured: [Y] Fentanyl Dose (mcg): [] IV Propofol Dose (mg): [70] ED Sedation Level: [Moderate] Patient Tolerated Procedure: [Well] Complications: [None] Discharge Plan Departure Patient Disposition: Home Clinical Impression: Atrial fibrillation status post cardioversion Activity Restrictions/Additional Instructions: Return with new or worsening symptoms. Follow up with Cardiology appointment at your next scheduled visit. Prescriptions: No Action gabapentin 100 mg capsule 100 mg PO DAILY Qty: 90 2RF chlorthalidone 25 mg tablet 12.5 mg PO DAILY losartan 50 mg Tablet 50 mg PO DAILY multivitamin Tablet 1 tab PO DAILY cyanocobalamin (vitamin B-12) 500 mcg tablet 500 mcg PO DAILY ascorbic acid (vitamin C) 1,000 mg tablet 1 gram PO BID levothyroxine 137 mcg tablet 137 mcg PO DAILY methocarbamol 500 mg tablet 500 mg PO QID PRN (Reason: Spasms) amiodarone 200 mg tablet 200 mg PO DAILY atorvastatin 40 mg tablet 40 mg PO DAILY Eliquis 5 mg tablet 5 mg PO BID timolol maleate (PF) 0.5 % dropperette 1 drp EYE-BOTH DAILY coenzyme Q10 [Co Q-10] 100 mg capsule 100 mg PO DAILY latanoprost 0.005 % drops 1 drp EYE-BOTH ONCE PM amlodipine 5 mg tablet 5 mg PO DAILY amiodarone 100 mg tablet 100 mg PO DAILY Referrals: Soha Resendiz MD [Primary Care Provider, Family Practice] Stand Alone Forms: Patient Portal/API
[2025-08-12 16:51] LABS: NT-proBNP (BNP-Adult 18+) 6180 pg/mL (<450); Troponin I 0.018 ng/mL (0.01-0.034)
--- NOTE | 2025-08-12 19:58 | EKG_ITS ---
[address] [address] Test Date: 2025-08-12 Pat Name: Kait Timmons Department: Room: Gender: Female [employer] Torque Tester: : 1940 Requested By: Order Number: [id number] Reading MD: Measurements Intervals [place] Rate: 60 P: MT: 164 QRS: 65 QRSD: 92 T: 53 QT: 474 QTc: 474 Interpretive Statements Atrial-paced rhythm Nonspecific ST abnormality
--- NOTE | 2025-08-12 20:01 | PC.NURSE ---
RT lifted her chin,and for a very brief time approx 6 minutes usei a BVM.
--- NOTE | 2025-08-12 20:05 | PC.NURSE ---
Pts O2 began dropping shortly after pt was sedated. RT lifted her chin and assisted with BVM for approx 6 minutes.
== END 2025-08-12 20:38 | disposition home or self-care (01) ==
PROVIDERS: Emergency Medicine; Emergency Provider Family Medicine; Family Provider Family Medicine; PCP Family Medicine
DX: I48.91 Unspecified atrial fibrillation (principal); R53.1 Weakness; R42 Dizziness and giddiness; Z86.79 Personal history of other diseases of the circulatory system
CPT/HCPCS: 36415; 71045; 80053; 82550; 83690; 83735; 83880; 84484; 85025; 85610; 85730; 92960; 93005; 93010; 96374; 99284; 99285; J2704

== ENCOUNTER → 2025-08-17 12:39 | Outpatient (CLI) | payer MEDICARE, BC, SELFPAY ==
[2024-07-15 11:15] VITALS: BMI 32.1
--- NOTE | 2025-08-17 12:40 | DI.CT.S_ITS ---
PROCEDURE: CT LUMBAR SPINE WO CON INDICATIONS: fusion of spine TECHNIQUE: Noncontrast 3 mm thick sections acquired from the T12 level to the sacrum. Sagittal and coronal reformats were constructed. For radiation dose reduction, the following was used: automated exposure control. COMPARISON: [facility], CT, CT LUMBAR SPINE WO CON, 01/15/2025, 11:42. FINDINGS: Image quality: Excellent. Bones: Patient is status post interval posterior decompression and extensive posterior fusion of thoracic and lumbar spine with surgical hardware seen extending to S2 level. 7 mm anterolisthesis of L4 on L5 is seen. 4 mm anterolisthesis of L3 on L4 is also noted. No evidence of hardware loosening or failure. No suspicious bony lesions. No acute vertebral body compression fracture. T12-L1: Loss of disc height and degenerative endplate changes. Mild diffuse disc bulge and bilateral facet arthrosis with mild central canal stenosis and bilateral neural foraminal narrowing. L1-L2: Loss of disc height and degenerative endplate changes. Mild diffuse disc bulge with mild central canal stenosis and right worse than left bilateral neural foraminal narrowing. L2-L3: Postsurgical changes. Bilateral facet arthrosis and mild broad-based disc bulge is seen. No significant central canal stenosis. There is [id number] left-sided neural foraminal narrowing. L3-L4: Loss of disc height and degenerative endplate changes. There is posterior decompression. Bilateral facet arthrosis is seen. No significant central canal stenosis or neural foraminal narrowing. L4-L5: Degenerative endplate changes and loss of disc height. Postsurgical changes are seen with beam hardening artifacts. Broad-based disc osteophyte complex formation is seen posteriorly with bilateral facet arthrosis causing moderate to severe bilateral neural foraminal narrowing. No significant canal stenosis. L5-S1: Loss of disc height and degenerative endplate changes. Dorsal disc osteophyte complex formation and bilateral facet arthrosis. No significant central canal stenosis. Left worse than right bilateral neural foraminal narrowing is seen. Soft tissues: No gross paraspinous soft tissue mass. Likely postsurgical seroma along right lower back soft tissue is seen. Dense atherosclerotic calcifications in abdominal aorta is seen. No aortic aneurysm. IMPRESSION: 1. Postsurgical changes from extensive posterior fusion in thoracic and lumbar spine with posterior decompression in mid to lower lumbar spine as above. No evidence of hardware loosening or failure. No acute vertebral body compression fracture. Grade 1 anterolisthesis at L3-4 and L4-5 levels as above. 2. Postsurgical changes in right paraspinous soft tissue with likely postsurgical seroma. 3. Bilateral facet arthrosis and dorsal disc osteophyte complex formation throughout lumbar spine causing various degrees of central canal stenosis and bilateral neural foraminal narrowing as described above. Dictated by: Morales Law M.D. on 08/17/2025 at 16:19 Approved by: Morales Law M.D. on 08/17/2025 at 16:27
--- NOTE | 2025-08-17 12:40 | DI.CT.S_ITS ---
PROCEDURE: CT THORACIC SPINE WO CON INDICATIONS: fusion of spine TECHNIQUE: Noncontrast 3 mm thick sections acquired through the region of interest in the thoracic spine. Sagittal and coronal reformats were then constructed. For radiation dose reduction, the following was used: automated exposure control. COMPARISON: [facility], CT, CT THORACIC SPINE WO CON, 01/15/2025, 11:42. FINDINGS: Image quality: Excellent. Bones: Postsurgical changes are noted from prior lower thoracic spine and lumbar spine fusion with surgical hardware is seen extending to T10 level. No evidence of hardware loosening or failure. No acute compression fracture or spondylolisthesis. Loss of disc height and degenerative endplate changes are noted throughout thoracic spine without significant central canal stenosis or neural foraminal narrowing. Soft tissues: No paravertebral masses or hematomas. Visualized posteromedial lungs appear clear. IMPRESSION: 1. Postsurgical changes in lower thoracic spine. No acute compression fracture or spondylolisthesis. No evidence of hardware complication. 2. [id number] degenerative disc disease throughout thoracic spine not significantly changed from prior study. No significant central canal stenosis or neural foraminal narrowing. Dictated by: Morales Law M.D. on 08/17/2025 at 16:28 Approved by: Morales Law M.D. on 08/17/2025 at 16:35
== END ==
LOC: CT 12:39
PROVIDERS: Family Provider Family Medicine; PCP Family Medicine; Referring Provider Orthopaedic Surgery Orthopaedic Surgery of the Spine; Visit Provider Orthopaedic Surgery Orthopaedic Surgery of the Spine
DX: M51.34 Other intervertebral disc degeneration, thoracic region (principal); M43.16 Spondylolisthesis, lumbar region; M47.816 Spondylosis without myelopathy or radiculopathy, lumbar region; M47.817 Spondylosis without myelopathy or radiculopathy, lumbosacral region; M48.061 Spinal stenosis, lumbar region without neurogenic claudication; M48.07 Spinal stenosis, lumbosacral region; Z98.1 Arthrodesis status
CPT/HCPCS: 72128; 72131